=== PATIENT | male | born 1950 | race Caucasian/White ===

== ENCOUNTER 2019-08-13 15:13 | Inpatient (IN) | payer OTHER, MEDICARE ==
[~2019-08-13] VITALS: Ht 172.7 cm; Wt 107.5 kg
--- OUTSIDE RECORDS SUMMARY | 2019-08-13 15:18 | XMS REPORT ---
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 Allergies, Adverse Reactions, Alerts Allergy Name Allergy Type Status Severity Reaction(s) Onset Date Inactive Date Treating Clinician Comments divalproex sodium DA Active SV 2019-04-09 00:00:00 No Known Allergies DA Active U 2019-04-06 00:00:00 divalproex sodium DA Active [place] 2019-04-06 00:00:00 risperidone DA Active SV 2019-04-06 00:00:00 quetiapine DA Active [place] 2019-04-06 00:00:00 risperidone DA Active MO 2019-03-21 00:00:00 divalproex sodium DA Active U 2019-03-21 00:00:00 ketorolac tromethamine DA Active [place] 2019-01-28 00:00:00 quetiapine fumarate DA Active 2019-01-28 00:00:00 Penicillins DA Active [place] 2019-01-28 00:00:00 hydrocodone DA Active [place] 2019-01-28 00:00:00 ketorolac tromethamine DA Active [place] 2016-12-05 00:00:00 quetiapine fumarate DA Active 2016-12-05 00:00:00 Penicillins DA Active [place] 2016-12-05 00:00:00 hydrocodone DA Active [place] 2016-12-05 00:00:00 Medications This patient has no known medications. Encounters Start Date/Time End Date/Time Encounter Type Admission Type Attending [facility] Care Department Encounter ID 2017-11-28 08:00:00 2017-11-28 08:00:00 Outpatient MHSE [id number] Results Test Description Test Time Test Comments Text Results Atomic Results Result Comments SURGICAL SPECIMENS 2019-04-14 13:53:00 RUN DATE: 04/14/19 [facility] *LIVE* PAGE 1 RUN TIME: 1353 Specimen Inquiry RUN USER: INTERFACE PATIENT: KELSEY JENNINGS LOC: [place] U #: [id number] AGE/SX: 69/M ROOM: RE04/10/19[facility] DR: Bill Monroy : 54 BED: DIS: STATUS: [facility] TLOC: SPEC #: [id number] RECD: 04/10/19 STATUS: KIMBER RELillian #: [id number] KEVIN: 04/10/19 [facility] [address]: Bill Monroy MD ENTERED: 04/14/19 SP TYPE: SURG SPEC OTHR DR: August Carpio MD ORDERED: GM LEVEL 4 CODES: [id number] - STOMACH, NOS [id number] - COLON, NOS COPIES TO: August Carpio MD [address] [place] [address] Bill Monroy MD [address] [place] [address] [address] [place], [place] [id number] PROCEDURES: GM LEVEL 4 (Incomplete) TISSUES: 1. STOMACH, NOS - Stomach, antrum, bx. 2. COLON, NOS - Colon, cecum, polyp FINAL DIAGNOSIS Stomach, antrum, bx.: Reactive chemical gastropathy, no Helicobacter organisms identified. Colon, cecum, polyp: Tubular adenoma. GROSS AND MICROSCOPIC GROSS EXAMINATION: Received in formalin labeled antrum biopsy are 2 [place] tissue fragments measuring up to 0.3 cm (A). Received in formalin labeled cecal polyp is one [place] tissue fragment measuring up to 0.3 cm (B). MICROSCOPIC EXAMINATION: The gastric mucosa shows coiled glands with intervening smooth muscle. There is chronic inflammation in the lamina propria. No significant acute inflammation is identified. No Helicobacter pylori organisms are identified with the immunostain, and no intestinal metaplasia is identified with the alcian blue/PAS stain. (When special stains have been reviewed, the appropriate positive/negative CONTINUED ON NEXT PAGE RUN DATE: 04/14/19 [facility] *LIVE* PAGE 2 RUN TIME: 1353 Specimen Inquiry RUN USER: INTERFACE SPEC #: [id number] PATIENT: KELSEY JENNINGS #[id number] (Continued) GROSS AND MICROSCOPIC (Continued) controls have been reviewed and are appropriately positive/negative). Sections of the cecum polyp reveal changes of tubular adenoma. The lesion is composed of elongated glands lined by tall columnar epithelial cells arranged perpendicular to the gland lumens. Mitotic activity is increased. No definite evidence of invasive carcinoma is seen in these slides. POST-OP DIAGNOSIS Colon p olyp, diverticulosis PRE-OP DIAGNOSIS GI bleed, anemia, blood in stool Signed SIGNATURE ON FILE Jasvir Panda Ben FAM 04/14/19 1353 END OF REPORT BASIC METABOLIC PANEL 2019-04-10 10:15:00 SODIUM (test code=NA) 140 mEq/L 134-147 POTASSIUM (test code=K) 4.4 mEq/L 3.4-5.0 CHLORIDE (test code=CL) 104 mEq/L 100-108 CARBON DIOXIDE (test code=CO2) 31 mEq/L 21-33 ANION GAP (test code=GAP) 9 0-20 GLUCOSE (test code=GLU) 90 mg/dL 70-110 BLOOD UREA NITROGEN (test code=BUN) 17 mg/dL 7-18 GLOMERULAR FILTRATION RATE (test code=GFR) 50.5 80-90 Units of measure=ml/min/1.73 m2 CREATININE (test code=CREAT) 1.4 mg/dL 0.6-1.3 CALCIUM (test code=CA) 8.6 mg/dL 8.0-10.5 CBC W/AUTO [id number] 09:23:00* Test Item Value Reference Range Comments WHITE BLOOD CELL (test code=WBC) 8.53 x10 3/uL 4.5-11.0 RED BLOOD CELL (test code=RBC) 2.59 x10 6/uL 4.00-5.60 HEMOGLOBIN (test code=HGB) 8.5 g/dL 12.5-16.9 HEMATOCRIT (test code=HCT) 27.2 % 37.5-50.7 MEAN CELL VOLUME (test code=MCV) 105.0 fL 81.0-99.0 MEAN CELL HGB (test code=MCH) 32.8 pg 27.0-33.0 MEAN CELL HGB CONCETRATION (test code=MCHC) 31.3 g/dL 33.0-37.0 RED CELL DISTRIBUTION WIDTH CV (test code=RDW) 15.9 % 11.5-14.5 RED CELL DISTRIBUTION WIDTH SD (test code=RDW-SD) 60.4 fL 37.0-54.0 PLATELET COUNT (test code=PLT) 172 x10 3/uL 150-400 MEAN PLATELET VOLUME (test code=MPV) 11.3 fL 7.0-9.0 NEUTROPHIL % (test code=NT%) 75.3 % 56.0-77.0 IMMATURE GRANULOCYTE % (test code=IG%) 0.7 % 0.0-2.0 LYMPHOCYTE % (test code=LY%) 15.4 % 14.0-32.0 MONOCYTE % (test code=MO%) 7.3 % 4.8-9.0 EOSINOPHIL % (test code=EO%) 1.1 % 0.3-3.7 BASOPHIL % (test code=BA%) 0.2 % 0.0-2.0 NUCLEATED RBC % (test code=NRBC%) 0.2 % 0-0 NEUTROPHIL # (test code=NT#) 6.43 x10 3/uL 2.0-7.6 IMMATURE GRANULOCYTE # (test code=IG#) 0.06 x10 3/uL 0.00-0.03 LYMPHOCYTE # (test code=LY#) 1.31 x10 3/uL 1.0-3.8 MONOCYTE # (test code=MO#) 0.62 x10 3/uL 0.1-0.8 EOSINOPHIL # (test code=EO#) 0.09 x10 3/uL 0.0-0.2 BASOPHIL # (test code=BA#) 0.02 x10 3/uL 0.0-0.2 NUCLEATED RBC # (test code=NRBC#) 0.02 x10 3/uL 0.0-0.1 MANUAL DIFF REQUIRED (test code=MDIFF) NO BASIC METABOLIC [id number] 08:44:00* Test Item Value Reference Range Comments SODIUM (test code=NA) 141 mEq/L 134-147 POTASSIUM (test code=K) 4.2 mEq/L 3.4-5.0 CHLORIDE (test code=CL) 106 mEq/L 100-108 CARBON DIOXIDE (test code=CO2) 29 mEq/L 21-33 ANION GAP (test code=GAP) 10 0-20 GLUCOSE (test code=GLU) 100 mg/dL 70-110 BLOOD UREA NITROGEN (test code=BUN) 22 mg/dL 7-18 GLOMERULAR FILTRATION RATE (test code=GFR) 60.4 80-90 Units of measure=ml/min/1.73 m2 CREATININE (test code=CREAT) 1.2 mg/dL 0.6-1.3 CALCIUM (test code=CA) 8.2 mg/dL 8.0-10.5 HGB [id number] 16:44:00* Test Item Value Reference Range Comments HEMOGLOBIN (test code=HGB) 8.8 g/dL 12.5-16.9 HEMATOCRIT (test code=HCT) 27.2 % 37.5-50.7 BASIC METABOLIC [id number] 05:42:00* Test Item Value Reference Range Comments SODIUM (test code=NA) 139 mEq/L 134-147 POTASSIUM (test code=K) 4.3 mEq/L 3.4-5.0 CHLORIDE (test code=CL) 108 mEq/L 100-108 CARBON DIOXIDE (test code=CO2) 25 mEq/L 21-33 ANION GAP (test code=GAP) 10 0-20 GLUCOSE (test code=GLU) 71 mg/dL 70-110 BLOOD UREA NITROGEN (test code=BUN) 22 mg/dL 7-18 GLOMERULAR FILTRATION RATE (test code=GFR) 96.4 80-90 Units of measure=ml/min/1.73 m2 CREATININE (test code=CREAT) 0.8 mg/dL 0.6-1.3 CALCIUM (test code=CA) 7.3 mg/dL 8.0-10.5 CBC W/AUTO [id number] 05:07:00* Test Item Value Reference Range Comments WHITE BLOOD CELL (test code=WBC) 6.17 x10 3/uL 4.5-11.0 RED BLOOD CELL (test code=RBC) 2.51 x10 6/uL 4.00-5.60 HEMOGLOBIN (test code=HGB) 8.1 g/dL 12.5-16.9 HEMATOCRIT (test code=HCT) 25.3 % 37.5-50.7 MEAN CELL VOLUME (test code=MCV) 100.8 fL 81.0-99.0 MEAN CELL HGB (test code=MCH) 32.3 pg 27.0-33.0 MEAN CELL HGB CONCETRATION (test code=MCHC) 32.0 g/dL 33.0-37.0 RED CELL DISTRIBUTION WIDTH CV (test code=RDW) 15.4 % 11.5-14.5 RED CELL DISTRIBUTION WIDTH SD (test code=RDW-SD) 57.0 fL 37.0-54.0 PLATELET COUNT (test code=PLT) 136 x10 3/uL 150-400 MEAN PLATELET VOLUME (test code=MPV) 11.3 fL 7.0-9.0 NEUTROPHIL % (test code=NT%) 60.5 % 56.0-77.0 IMMATURE GRANULOCYTE % (test code=IG%) 0.5 % 0.0-2.0 LYMPHOCYTE % (test code=LY%) 29.7 % 14.0-32.0 MONOCYTE % (test code=MO%) 7.1 % 4.8-9.0 EOSINOPHIL % (test code=EO%) 1.9 % 0.3-3.7 BASOPHIL % (test code=BA%) 0.3 % 0.0-2.0 NUCLEATED RBC % (test code=NRBC%) 0.0 % 0-0 NEUTROPHIL # (test code=NT#) 3.73 x10 3/uL 2.0-7.6 IMMATURE GRANULOCYTE # (test code=IG#) 0.03 x10 3/uL 0.00-0.03 LYMPHOCYTE # (test code=LY#) 1.83 x10 3/uL 1.0-3.8 MONOCYTE # (test code=MO#) 0.44 x10 3/uL 0.1-0.8 EOSINOPHIL # (test code=EO#) 0.12 x10 3/uL 0.0-0.2 BASOPHIL # (test code=BA#) 0.02 x10 3/uL 0.0-0.2 NUCLEATED RBC # (test code=NRBC#) 0.00 x10 3/uL 0.0-0.1 MANUAL DIFF REQUIRED (test code=MDIFF) NO PROTHROMBIN [id number] 10:28:00* Test Item Value Reference Range Comments PROTHROMBIN TIME PATIENT (test code=PTP) 11.2 SECONDS 9.3-12.9 INTERNATIONAL NORMAL RATIO (test code=INR) 1.0 0.8-1.2 TARGET INR BY INDICATION Indication INR1. Prophylaxis of venous thrombosis 2.0 - 3.0 (orthopedic surgery), Prophylaxis of venous thrombosis (other than high-risk surgery), Treatment of Deep Vein Thrombosis/Pulmonary Embolism, Prevention of systemic embolism - Tissue heart valves, Acute Myocardial Infarction (to prevent systemic embolism), Valvular heart disease, Atrial Fibrillation, Bileaflet mechanical valve in aortic position.2. Mechanical prosthetic valves (high risk), 2.5 - 3.5 Presence of Lupus Anticoagulant or Antiphospholipid Antibodies, Prevention of systemic embolism - Acute Myocardial Infarction (to prevent recurrent infarct). THROMBOPLASTIN TIME [id number] 10:28:00* Test Item Value Reference Range Comments THROMBOPLASTIN TIME PARTIAL (test code=PTT) 19.7 Seconds 25.0-39.5 Therapeutic Range: 50.4 - 88.3 Seconds Effective 02/24/2019 BASIC METABOLIC [id number] 09:28:00* Test Item Value Reference Range Comments SODIUM (test code=NA) 140 mEq/L 134-147 POTASSIUM (test code=K) 4.1 mEq/L 3.4-5.0 CHLORIDE (test code=CL) 104 mEq/L 100-108 CARBON DIOXIDE (test code=CO2) 30 mEq/L 21-33 ANION GAP (test code=GAP) 10 0-20 GLUCOSE (test code=GLU) 101 mg/dL 70-110 BLOOD UREA NITROGEN (test code=BUN) 34 mg/dL 7-18 GLOMERULAR FILTRATION RATE (test code=GFR) 60.4 80-90 Units of measure=ml/min/1.73 m2 CREATININE (test code=CREAT) 1.2 mg/dL 0.6-1.3 CALCIUM (test code=CA) 8.8 mg/dL 8.0-10.5 HEPATIC FUNCTION [id number] 09:28:00* Test Item Value Reference Range Comments TOTAL PROTEIN (test code=PROT) 6.5 g/dL 6.4-8.2 ALBUMIN (test code=ALB) 2.90 g/dL 3.4-5.0 BILIRUBIN TOTAL (test code=BILT) 0.30 mg/dL 0.0-1.0 BILIRUBIN DIRECT (test code=BILD) < 0.10 MG/DL 0.0-0.30 BILIRUBIN INDIRECT (test code=BILIND) 0.20 MG/DL SGOT/AST (test code=AST) 17 IUnit/L 15-37 SGPT/ALT (test code=ALT) 34 IUnit/L 15-65 ALKALINE PHOSPHATASE TOTAL (test code=ALKP) 52 IUnit/L 20-125 [id number] 09:28:00* Test Item Value Reference Range Comments LIPASE (test code=LIP) 231 IUnit/L 73-393 BASIC METABOLIC [id number] 09:22:00* Test Item Value Reference Range Comments SODIUM (test code=NA) 140 mEq/L 134-147 POTASSIUM (test code=K) 4.1 mEq/L 3.4-5.0 CHLORIDE (test code=CL) 104 mEq/L 100-108 CARBON DIOXIDE (test code=CO2) 30 mEq/L 21-33 ANION GAP (test code=GAP) 10 0-20 GLUCOSE (test code=GLU) 101 mg/dL 70-110 BLOOD UREA NITROGEN (test code=BUN) 34 mg/dL 7-18 GLOMERULAR FILTRATION RATE (test code=GFR) 60.4 80-90 Units of measure=ml/min/1.73 m2 CREATININE (test code=CREAT) 1.2 mg/dL 0.6-1.3 CALCIUM (test code=CA) 8.8 mg/dL 8.0-10.5 HEPATIC FUNCTION [id number] 09:22:00* Test Item Value Reference Range Comments TOTAL PROTEIN (test code=PROT) g/dL 6.4-8.2 ALBUMIN (test code=ALB) 2.90 g/dL 3.4-5.0 BILIRUBIN TOTAL (test code=BILT) mg/dL 0.0-1.0 BILIRUBIN DIRECT (test code=BILD) MG/DL 0.0-0.30 SGOT/AST (test code=AST) 17 IUnit/L 15-37 SGPT/ALT (test code=ALT) 34 IUnit/L 15-65 ALKALINE PHOSPHATASE TOTAL (test code=ALKP) IUnit/L 20-125 [id number] 09:22:00* Test Item Value Reference Range Comments LIPASE (test code=LIP) 231 IUnit/L 73-393 CBC W/O [id number] 09:20:00* Test Item Value Reference Range Comments WHITE BLOOD CELL (test code=WBC) 9.33 x10 3/uL 4.5-11.0 RED BLOOD CELL (test code=RBC) 3.27 x10 6/uL 4.00-5.60 HEMOGLOBIN (test code=HGB) 10.5 g/dL 12.5-16.9 HEMATOCRIT (test code=HCT) 34.0 % 37.5-50.7 MEAN CELL VOLUME (test code=MCV) 104.0 fL 81.0-99.0 MEAN CELL HGB (test code=MCH) 32.1 pg 27.0-33.0 MEAN CELL HGB CONCETRATION (test code=MCHC) 30.9 g/dL 33.0-37.0 RED CELL DISTRIBUTION WIDTH CV (test code=RDW) 15.2 % 11.5-14.5 RED CELL DISTRIBUTION WIDTH SD (test code=RDW-SD) 57.7 fL 37.0-54.0 PLATELET COUNT (test code=PLT) 217 x10 3/uL 150-400 MEAN PLATELET VOLUME (test code=MPV) 11.1 fL 7.0-9.0 ARTERIAL BLOOD [id number] 12:11:00* Test Item Value Reference Range Comments ARTERIAL BLOOD GAS PH (test code=PHA) 7.426 7.35-7.45 ARTERIAL BLOOD GAS PCO2 (test code=PCO2A) 42.2 mmHg 35-45 ARTERIAL BLOOD GAS PO2 (test code=PO2A) 88 mmHg 80-100 BICARBONATE TOTAL HCO3 (test code=HCO3) 27.8 mmol/L 22.0-26.0 BASE EXCESS (test code=TEJAL) 3.0 mmol/L -4-4 ABG O2 SATURATION (test code=SATA) 97 % 90-100 ABG DELIVERY (test code=JOHANNE) Cannula ABG TEMPERATURE (test code=TEMPA) 98.6 F ABG SITE (test code=SITEA) L Rad TCO2 ARTERIAL (test code=TCO2A) 29 VITAMIN B6/[id number] 12:11:00* Test Item Value Reference Range Comments VITAMIN B6/PYRIDOXINE (test code=VITB6) 6.4 ug/L 5.3-46.7 This test was developed and its performance characteristicsdetermined by [employer]. It has not been cleared orapproved by the Food and Drug Administration.Performed At: [address] [id number] Sanjai MD Ph:[phone] BASIC METABOLIC [id number] 07:43:00* Test Item Value Reference Range Comments SODIUM (test code=NA) 137 mEq/L 134-147 POTASSIUM (test code=K) 4.7 mEq/L 3.4-5.0 CHLORIDE (test code=CL) 102 mEq/L 100-108 CARBON DIOXIDE (test code=CO2) 29 mEq/L 21-33 ANION GAP (test code=GAP) 11 0-20 GLUCOSE (test code=GLU) 80 mg/dL 70-110 BLOOD UREA NITROGEN (test code=BUN) 20 mg/dL 7-18 GLOMERULAR FILTRATION RATE (test code=GFR) 66.8 80-90 Units of measure=ml/min/1.73 m2 CREATININE (test code=CREAT) 1.1 mg/dL 0.6-1.3 CALCIUM (test code=CA) 8.9 mg/dL 8.0-10.5 CBC W/AUTO [id number] 07:28:00* Test Item Value Reference Range Comments WHITE BLOOD CELL (test code=WBC) 7.16 x10 3/uL 4.5-11.0 RED BLOOD CELL (test code=RBC) 3.99 x10 6/uL 4.00-5.60 HEMOGLOBIN (test code=HGB) 12.9 g/dL 12.5-16.9 HEMATOCRIT (test code=HCT) 40.9 % 37.5-50.7 MEAN CELL VOLUME (test code=MCV) 102.5 fL 81.0-99.0 MEAN CELL HGB (test code=MCH) 32.3 pg 27.0-33.0 MEAN CELL HGB CONCETRATION (test code=MCHC) 31.5 g/dL 33.0-37.0 RED CELL DISTRIBUTION WIDTH CV (test code=RDW) 15.9 % 11.5-14.5 RED CELL DISTRIBUTION WIDTH SD (test code=RDW-SD) 60.5 fL 37.0-54.0 PLATELET COUNT (test code=PLT) 207 x10 3/uL 150-400 MEAN PLATELET VOLUME (test code=MPV) 12.6 fL 7.0-9.0 NEUTROPHIL % (test code=NT%) 67.4 % 56.0-77.0 IMMATURE GRANULOCYTE % (test code=IG%) 2.1 % 0.0-2.0 LYMPHOCYTE % (test code=LY%) 18.3 % 14.0-32.0 MONOCYTE % (test code=MO%) 7.5 % 4.8-9.0 EOSINOPHIL % (test code=EO%) 4.1 % 0.3-3.7 BASOPHIL % (test code=BA%) 0.6 % 0.0-2.0 NUCLEATED RBC % (test code=NRBC%) 0.0 % 0-0 NEUTROPHIL # (test code=NT#) 4.83 x10 3/uL 2.0-7.6 IMMATURE GRANULOCYTE # (test code=IG#) 0.15 x10 3/uL 0.00-0.03 LYMPHOCYTE # (test code=LY#) 1.31 x10 3/uL 1.0-3.8 MONOCYTE # (test code=MO#) 0.54 x10 3/uL 0.1-0.8 EOSINOPHIL # (test code=EO#) 0.29 x10 3/uL 0.0-0.2 BASOPHIL # (test code=BA#) 0.04 x10 3/uL 0.0-0.2 NUCLEATED RBC # (test code=NRBC#) 0.00 x10 3/uL 0.0-0.1 MANUAL DIFF REQUIRED (test code=MDIFF) NO CBC W/AUTO [id number] 08:53:00* Test Item Value Reference Range Comments WHITE BLOOD CELL (test code=WBC) 7.92 x10 3/uL 4.5-11.0 RED BLOOD CELL (test code=RBC) 4.21 x10 6/uL 4.00-5.60 HEMOGLOBIN (test code=HGB) 13.6 g/dL 12.5-16.9 HEMATOCRIT (test code=HCT) 43.9 % 37.5-50.7 MEAN CELL VOLUME (test code=MCV) 104.3 fL 81.0-99.0 MEAN CELL HGB (test code=MCH) 32.3 pg 27.0-33.0 MEAN CELL HGB CONCETRATION (test code=MCHC) 31.0 g/dL 33.0-37.0 RED CELL DISTRIBUTION WIDTH CV (test code=RDW) 16.5 % 11.5-14.5 RED CELL DISTRIBUTION WIDTH SD (test code=RDW-SD) 64.1 fL 37.0-54.0 PLATELET COUNT (test code=PLT) 156 x10 3/uL 150-400 MEAN PLATELET VOLUME (test code=MPV) 12.9 fL 7.0-9.0 NEUTROPHIL % (test code=NT%) 67.8 % 56.0-77.0 IMMATURE GRANULOCYTE % (test code=IG%) 2.4 % 0.0-2.0 LYMPHOCYTE % (test code=LY%) 16.4 % 14.0-32.0 MONOCYTE % (test code=MO%) 8.7 % 4.8-9.0 EOSINOPHIL % (test code=EO%) 3.9 % 0.3-3.7 BASOPHIL % (test code=BA%) 0.8 % 0.0-2.0 NUCLEATED RBC % (test code=NRBC%) 0.0 % 0-0 NEUTROPHIL # (test code=NT#) 5.37 x10 3/uL 2.0-7.6 IMMATURE GRANULOCYTE # (test code=IG#) 0.19 x10 3/uL 0.00-0.03 LYMPHOCYTE # (test code=LY#) 1.30 x10 3/uL 1.0-3.8 MONOCYTE # (test code=MO#) 0.69 x10 3/uL 0.1-0.8 EOSINOPHIL # (test code=EO#) 0.31 x10 3/uL 0.0-0.2 BASOPHIL # (test code=BA#) 0.06 x10 3/uL 0.0-0.2 NUCLEATED RBC # (test code=NRBC#) 0.00 x10 3/uL 0.0-0.1 MANUAL DIFF REQUIRED (test code=MDIFF) NO BASIC METABOLIC [id number] 08:07:00* Test Item Value Reference Range Comments SODIUM (test code=NA) 138 mEq/L 134-147 POTASSIUM (test code=K) 4.7 mEq/L 3.4-5.0 CHLORIDE (test code=CL) 102 mEq/L 100-108 CARBON DIOXIDE (test code=CO2) 31 mEq/L 21-33 ANION GAP (test code=GAP) 10 0-20 GLUCOSE (test code=GLU) 89 mg/dL 70-110 BLOOD UREA NITROGEN (test code=BUN) 24 mg/dL 7-18 GLOMERULAR FILTRATION RATE (test code=GFR) 60.4 80-90 Units of measure=ml/min/1.73 m2 CREATININE (test code=CREAT) 1.2 mg/dL 0.6-1.3 CALCIUM (test code=CA) 8.9 mg/dL 8.0-10.5 VITAMIN D 1,38-[id number] 14:10:00* Test Item Value Reference Range Comments VITAMIN D 1,25-DIHYDROXY (test aeos=IESN701) 66.6 pg/mL 19.9-79.3 Performed At: [facility] [address] [id number] Sanjai MD Ph:[phone] BASIC METABOLIC [id number] 04:51:00* Test Item Value Reference Range Comments SODIUM (test code=NA) 138 mEq/L 134-147 POTASSIUM (test code=K) 4.7 mEq/L 3.4-5.0 CHLORIDE (test code=CL) 106 mEq/L 100-108 CARBON DIOXIDE (test code=CO2) 28 mEq/L 21-33 ANION GAP (test code=GAP) 9 0-20 GLUCOSE (test code=GLU) 98 mg/dL 70-110 BLOOD UREA NITROGEN (test code=BUN) 32 mg/dL 7-18 GLOMERULAR FILTRATION RATE (test code=GFR) 60.4 80-90 Units of measure=ml/min/1.73 m2 CREATININE (test code=CREAT) 1.2 mg/dL 0.6-1.3 CALCIUM (test code=CA) 8.3 mg/dL 8.0-10.5 CBC W/AUTO [id number] 04:23:00* Test Item Value Reference Range Comments WHITE BLOOD CELL (test code=WBC) 8.41 x10 3/uL 4.5-11.0 RED BLOOD CELL (test code=RBC) 3.68 x10 6/uL 4.00-5.60 HEMOGLOBIN (test code=HGB) 12.1 g/dL 12.5-16.9 HEMATOCRIT (test code=HCT) 38.3 % 37.5-50.7 MEAN CELL VOLUME (test code=MCV) 104.1 fL 81.0-99.0 MEAN CELL HGB (test code=MCH) 32.9 pg 27.0-33.0 MEAN CELL HGB CONCETRATION (test code=MCHC) 31.6 g/dL 33.0-37.0 RED CELL DISTRIBUTION WIDTH CV (test code=RDW) 16.8 % 11.5-14.5 RED CELL DISTRIBUTION WIDTH SD (test code=RDW-SD) 64.6 fL 37.0-54.0 PLATELET COUNT (test code=PLT) 126 x10 3/uL 150-400 MEAN PLATELET VOLUME (test code=MPV) 12.3 fL 7.0-9.0 NEUTROPHIL % (test code=NT%) 67.1 % 56.0-77.0 IMMATURE GRANULOCYTE % (test code=IG%) 2.4 % 0.0-2.0 LYMPHOCYTE % (test code=LY%) 16.6 % 14.0-32.0 MONOCYTE % (test code=MO%) 10.8 % 4.8-9.0 EOSINOPHIL % (test code=EO%) 2.5 % 0.3-3.7 BASOPHIL % (test code=BA%) 0.6 % 0.0-2.0 NUCLEATED RBC % (test code=NRBC%) 0.0 % 0-0 NEUTROPHIL # (test code=NT#) 5.64 x10 3/uL 2.0-7.6 IMMATURE GRANULOCYTE # (test code=IG#) 0.20 x10 3/uL 0.00-0.03 LYMPHOCYTE # (test code=LY#) 1.40 x10 3/uL 1.0-3.8 MONOCYTE # (test code=MO#) 0.91 x10 3/uL 0.1-0.8 EOSINOPHIL # (test code=EO#) 0.21 x10 3/uL 0.0-0.2 BASOPHIL # (test code=BA#) 0.05 x10 3/uL 0.0-0.2 NUCLEATED RBC # (test code=NRBC#) 0.00 x10 3/uL 0.0-0.1 MANUAL DIFF REQUIRED (test code=MDIFF) NO LIPID PROFILE (CORONARY RISK)2019-03-22 14:06:00* Test Item Value Reference Range Comments TRIGLYCERIDES (test code=TRIG) 345 mg/dL 40-150 CHOLESTEROL (test code=CHOL) 196 mg/dL <200 CHOLESTEROL/HDL RATIO (test code=CHOLHDL) 11.53 RATIO 3.43-4.97 RISK ASSOCIATED WITH CHOL/HDL RATIOS: RISK MALE FEMALE1/2 AVERAGE 3.43 3.27AVERAGE 4.97 4.442X AVERAGE 9.55 7.053X AVERAGE 23.39 11.04 NOTE THAT THE REFERENCE VALUE IS RELATEDTO RISK LEVELS RECOMMENDED BY THE NATL.HEART, LUNG, AND BLOOD INST. HDL CHOLESTEROL (test code=HDL) 17.0 mg/dL 32-72 LIPOPROTEIN LDL (test code=LDL) 84 mg/dL 0-100 <100 [id number] NEAR OPTIMAL/ABOVE [id number] HIGH>OU=003 VERY HIGH*Guidelines provided by the National Cholesterol EducationProgram Adult Treatment Panel III URIC [id number] 14:06:00* Test Item Value Reference Range Comments URIC ACID (test code=URIC) 7.7 mg/dL 2.6-7.2 [id number] 14:06:00* Test Item Value Reference Range Comments AMYLASE (test code=EVAN) 12 UNITS/L 25-115 [id number] 14:06:00* Test Item Value Reference Range Comments MAGNESIUM (test code=MAG) 2.60 mg/dL 1.8-2.4 SERUM [id number] 14:06:00* Test Item Value Reference Range Comments SERUM IRON (test code=IRON) 12 mcg/dL 35-150 VITAMIN [id number] 14:06:00* Test Item Value Reference Range Comments VITAMIN B12 (test code=VITB12) 1930 pg/mL 193-986 THYROID STIMULATING [id number] 14:06:00* Test Item Value Reference Range Comments THYROID STIMULATING HORMONE (test code=TSH) 1.01 0.42-5.47 Results in riaz-International Units/mL [id number] 14:06:00* Test Item Value Reference Range Comments TROPONIN-I (test code=TROPI) < 0.015 ng/mL 0.000-0.045 Negative: <=0.045 Positive: >=0.046 Correlation with serial results, other cardiac markers andclinical findings is necessary to determine the clinicalsignificance of this result. Results using different methodologies should not be comparedto one another as quantitative results may vary by method. VITAMIN [id number] 14:06:00* Test Item Value Reference Range Comments VITAMIN A (test code=LIZA) 13.1 ug/dL 22.0-69.5 Reference intervals for vitamin A determined from [facility]. Individuals with vitamin A less than 20ug/dL are considered vitamin A deficient and those withserum concentrations less than 10 ug/dL are consideredseverely deficient.This test was developed and its performance characteristicsdetermined by [facility]. It has not been cleared orapproved by the Food and Drug Administration.Performed At: [address] [id number] Sanjai MD Ph:[phone] [id number] 14:06:00* Test Item Value Reference Range Comments ZINC (test code=ZI) 47 ug/dL 56-134 Detection Limit=5Performed At: [facility] [id number] [place], [place] [id number] Sanjai MD Ph:[phone] PROCALCITONIN (PCT)2019-03-22 09:13:00* Test Item Value Reference Range Comments PROCALCITONIN (PCT) (test code=PROCAL) 2.59 ng/mL 0.00-0.05 PROCALCITONIN (PCT) NORMAL RANGE (ADULT): <0.05 NG/ML. * a concentration <0.5 ng/mL represents a low risk of severe sepsis and/or septic shock.* a concentration >2 ng/mL represents a high risk of severe sepsis and/or septic shock.Nevertheless, concentrations <0.5 ng/mL do not exclude aninfection, on account of localized infections (withoutsystemic signs) which can be associated with such lowconcentrations, or a systemic infection in its initialstages (< 6 hours). Furthermore, increased procalcitonincan occur without infection. PCT concentrations between 0.5and 2.0 ng/mL should be interpreted taking into account thepatient's history. It is recommended to retest PCT within6-24 hours if any concentrations <2 ng/mL are obtained. BASIC METABOLIC [id number] 07:28:00* Test Item Value Reference Range Comments SODIUM (test code=NA) 137 mEq/L 134-147 POTASSIUM (test code=K) 4.5 mEq/L 3.4-5.0 CHLORIDE (test code=CL) 103 mEq/L 100-108 CARBON DIOXIDE (test code=CO2) 28 mEq/L 21-33 ANION GAP (test code=GAP) 11 0-20 GLUCOSE (test code=GLU) 84 mg/dL 70-110 BLOOD UREA NITROGEN (test code=BUN) 36 mg/dL 7-18 GLOMERULAR FILTRATION RATE (test code=GFR) 55.1 80-90 Units of measure=ml/min/1.73 m2 CREATININE (test code=CREAT) 1.3 mg/dL 0.6-1.3 CALCIUM (test code=CA) 8.3 mg/dL 8.0-10.5 CBC W/AUTO [id number] 06:49:00* Test Item Value Reference Range Comments WHITE BLOOD CELL (test code=WBC) 6.80 x10 3/uL 4.5-11.0 RED BLOOD CELL (test code=RBC) 3.63 x10 6/uL 4.00-5.60 HEMOGLOBIN (test code=HGB) 11.8 g/dL 12.5-16.9 HEMATOCRIT (test code=HCT) 36.2 % 37.5-50.7 MEAN CELL VOLUME (test code=MCV) 99.7 fL 81.0-99.0 MEAN CELL HGB (test code=MCH) 32.5 pg 27.0-33.0 MEAN CELL HGB CONCETRATION (test code=MCHC) 32.6 g/dL 33.0-37.0 RED CELL DISTRIBUTION WIDTH CV (test code=RDW) 16.6 % 11.5-14.5 RED CELL DISTRIBUTION WIDTH SD (test code=RDW-SD) 60.9 fL 37.0-54.0 PLATELET COUNT (test code=PLT) 101 x10 3/uL 150-400 MEAN PLATELET VOLUME (test code=MPV) 13.0 fL 7.0-9.0 NEUTROPHIL % (test code=NT%) 67.0 % 56.0-77.0 IMMATURE GRANULOCYTE % (test code=IG%) 1.6 % 0.0-2.0 LYMPHOCYTE % (test code=LY%) 16.5 % 14.0-32.0 MONOCYTE % (test code=MO%) 13.7 % 4.8-9.0 EOSINOPHIL % (test code=EO%) 0.9 % 0.3-3.7 BASOPHIL % (test code=BA%) 0.3 % 0.0-2.0 NUCLEATED RBC % (test code=NRBC%) 0.0 % 0-0 NEUTROPHIL # (test code=NT#) 4.56 x10 3/uL 2.0-7.6 IMMATURE GRANULOCYTE # (test code=IG#) 0.11 x10 3/uL 0.00-0.03 LYMPHOCYTE # (test code=LY#) 1.12 x10 3/uL 1.0-3.8 MONOCYTE # (test code=MO#) 0.93 x10 3/uL 0.1-0.8 EOSINOPHIL # (test code=EO#) 0.06 x10 3/uL 0.0-0.2 BASOPHIL # (test code=BA#) 0.02 x10 3/uL 0.0-0.2 NUCLEATED RBC # (test code=NRBC#) 0.00 x10 3/uL 0.0-0.1 MANUAL DIFF REQUIRED (test code=MDIFF) NO LIPID PROFILE (CORONARY RISK)2019-03-21 14:09:00* Test Item Value Reference Range Comments TRIGLYCERIDES (test code=TRIG) 345 mg/dL 40-150 CHOLESTEROL (test code=CHOL) 196 mg/dL <200 CHOLESTEROL/HDL RATIO (test code=CHOLHDL) 11.53 RATIO 3.43-4.97 RISK ASSOCIATED WITH CHOL/HDL RATIOS: RISK MALE FEMALE1/2 AVERAGE 3.43 3.27AVERAGE 4.97 4.442X AVERAGE 9.55 7.053X AVERAGE 23.39 11.04 NOTE THAT THE REFERENCE VALUE IS RELATEDTO RISK LEVELS RECOMMENDED BY THE NATL.HEART, LUNG, AND BLOOD INST. HDL CHOLESTEROL (test code=HDL) 17.0 mg/dL 32-72 LIPOPROTEIN LDL (test code=LDL) 84 mg/dL 0-100 <100 [id number] NEAR OPTIMAL/ABOVE [id number] HIGH>UD=888 VERY HIGH*Guidelines provided by the National Cholesterol EducationProgram Adult Treatment Panel III URIC [id number] 14:09:00* Test Item Value Reference Range Comments URIC ACID (test code=URIC) 7.7 mg/dL 2.6-7.2 [id number] 14:09:00* Test Item Value Reference Range Comments AMYLASE (test code=EVAN) 12 UNITS/L 25-115 [id number] 14:09:00* Test Item Value Reference Range Comments MAGNESIUM (test code=MAG) 2.60 mg/dL 1.8-2.4 SERUM [id number] 14:09:00* Test Item Value Reference Range Comments SERUM IRON (test code=IRON) 12 mcg/dL 35-150 VITAMIN [id number] 14:09:00* Test Item Value Reference Range Comments VITAMIN B12 (test code=VITB12) 1930 pg/mL 193-986 THYROID STIMULATING [id number] 14:09:00* Test Item Value Reference Range Comments THYROID STIMULATING HORMONE (test code=TSH) 1.01 0.42-5.47 Results in riaz-International Units/mL [id number] 14:09:00* Test Item Value Reference Range Comments TROPONIN-I (test code=TROPI) < 0.015 ng/mL 0.000-0.045 Negative: <=0.045 Positive: >=0.046 Correlation with serial results, other cardiac markers andclinical findings is necessary to determine the clinicalsignificance of this result. Results using different methodologies should not be comparedto one another as quantitative results may vary by method. VITAMIN [id number] 14:09:00* Test Item Value Reference Range Comments VITAMIN A (test code=LIZA) [id number] 14:09:00* Test Item Value Reference Range Comments ZINC (test code=ZI) 47 ug/dL 56-134 Detection Limit=5Performed At: [address] [id number] Sanjai MD Ph:[phone] PROCALCITONIN (PCT)2019-03-21 09:45:00* Test Item Value Reference Range Comments PROCALCITONIN (PCT) (test code=PROCAL) 4.35 ng/mL 0.00-0.05 PROCALCITONIN (PCT) NORMAL RANGE (ADULT): <0.05 NG/ML. * a concentration <0.5 ng/mL represents a low risk of severe sepsis and/or septic shock.* a concentration >2 ng/mL represents a high risk of severe sepsis and/or septic shock.Nevertheless, concentrations <0.5 ng/mL do not exclude aninfection, on account of localized infections (withoutsystemic signs) which can be associated with such lowconcentrations, or a systemic infection in its initialstages (< 6 hours). Furthermore, increased procalcitonincan occur without infection. PCT concentrations between 0.5and 2.0 ng/mL should be interpreted taking into account thepatient's history. It is recommended to retest PCT within6-24 hours if any concentrations <2 ng/mL are obtained. BASIC METABOLIC [id number] 07:11:00* Test Item Value Reference Range Comments SODIUM (test code=NA) 135 mEq/L 134-147 POTASSIUM (test code=K) 5.0 mEq/L 3.4-5.0 CHLORIDE (test code=CL) 103 mEq/L 100-108 CARBON DIOXIDE (test code=CO2) 28 mEq/L 21-33 ANION GAP (test code=GAP) 9 0-20 GLUCOSE (test code=GLU) 75 mg/dL 70-110 BLOOD UREA NITROGEN (test code=BUN) 28 mg/dL 7-18 GLOMERULAR FILTRATION RATE (test code=GFR) 60.4 80-90 Units of measure=ml/min/1.73 m2 CREATININE (test code=CREAT) 1.2 mg/dL 0.6-1.3 CALCIUM (test code=CA) 8.1 mg/dL 8.0-10.5 CBC W/AUTO [id number] 07:04:00* Test Item Value Reference Range Comments WHITE BLOOD CELL (test code=WBC) 7.83 x10 3/uL 4.5-11.0 RED BLOOD CELL (test code=RBC) 3.79 x10 6/uL 4.00-5.60 HEMOGLOBIN (test code=HGB) 12.3 g/dL 12.5-16.9 HEMATOCRIT (test code=HCT) 38.1 % 37.5-50.7 MEAN CELL VOLUME (test code=MCV) 100.5 fL 81.0-99.0 MEAN CELL HGB (test code=MCH) 32.5 pg 27.0-33.0 MEAN CELL HGB CONCETRATION (test code=MCHC) 32.3 g/dL 33.0-37.0 RED CELL DISTRIBUTION WIDTH CV (test code=RDW) 17.0 % 11.5-14.5 RED CELL DISTRIBUTION WIDTH SD (test code=RDW-SD) 63.2 fL 37.0-54.0 PLATELET COUNT (test code=PLT) 98 x10 3/uL 150-400 MEAN PLATELET VOLUME (test code=MPV) 12.5 fL 7.0-9.0 NEUTROPHIL % (test code=NT%) 75.4 % 56.0-77.0 IMMATURE GRANULOCYTE % (test code=IG%) 0.5 % 0.0-2.0 LYMPHOCYTE % (test code=LY%) 12.3 % 14.0-32.0 MONOCYTE % (test code=MO%) 11.4 % 4.8-9.0 EOSINOPHIL % (test code=EO%) 0.3 % 0.3-3.7 BASOPHIL % (test code=BA%) 0.1 % 0.0-2.0 NUCLEATED RBC % (test code=NRBC%) 0.3 % 0-0 NEUTROPHIL # (test code=NT#) 5.91 x10 3/uL 2.0-7.6 IMMATURE GRANULOCYTE # (test code=IG#) 0.04 x10 3/uL 0.00-0.03 LYMPHOCYTE # (test code=LY#) 0.96 x10 3/uL 1.0-3.8 MONOCYTE # (test code=MO#) 0.89 x10 3/uL 0.1-0.8 EOSINOPHIL # (test code=EO#) 0.02 x10 3/uL 0.0-0.2 BASOPHIL # (test code=BA#) 0.01 x10 3/uL 0.0-0.2 NUCLEATED RBC # (test code=NRBC#) 0.02 x10 3/uL 0.0-0.1 MANUAL DIFF REQUIRED (test code=MDIFF) NO [id number] 16:25:00* Test Item Value Reference Range Comments GLUBED (test code=GLUBED) 92 MG/DL 70-110 Performed by certified control panel operator at [facility] PROCALCITONIN (PCT)2019-03-20 14:02:00* Test Item Value Reference Range Comments PROCALCITONIN (PCT) (test code=PROCAL) 7.88 ng/mL 0.00-0.05 PROCALCITONIN (PCT) NORMAL RANGE (ADULT): <0.05 NG/ML. * a concentration <0.5 ng/mL represents a low risk of severe sepsis and/or septic shock.* a concentration >2 ng/mL represents a high risk of severe sepsis and/or septic shock.Nevertheless, concentrations <0.5 ng/mL do not exclude aninfection, on account of localized infections (withoutsystemic signs) which can be associated with such lowconcentrations, or a systemic infection in its initialstages (< 6 hours). Furthermore, increased procalcitonincan occur without infection. PCT concentrations between 0.5and 2.0 ng/mL should be interpreted taking into account thepatient's history. It is recommended to retest PCT within6-24 hours if any concentrations <2 ng/mL are obtained. BASIC METABOLIC [id number] 11:59:00* Test Item Value Reference Range Comments SODIUM (test code=NA) 141 mEq/L 134-147 POTASSIUM (test code=K) 4.6 mEq/L 3.4-5.0 CHLORIDE (test code=CL) 106 mEq/L 100-108 CARBON DIOXIDE (test code=CO2) 32 mEq/L 21-33 ANION GAP (test code=GAP) 8 0-20 GLUCOSE (test code=GLU) 99 mg/dL 70-110 BLOOD UREA NITROGEN (test code=BUN) 34 mg/dL 7-18 GLOMERULAR FILTRATION RATE (test code=GFR) 43.3 80-90 Units of measure=ml/min/1.73 m2 CREATININE (test code=CREAT) 1.6 mg/dL 0.6-1.3 CALCIUM (test code=CA) 8.8 mg/dL 8.0-10.5 CBC W/AUTO [id number] 09:50:00* Test Item Value Reference Range Comments WHITE BLOOD CELL (test code=WBC) 11.18 x10 3/uL 4.5-11.0 RED BLOOD CELL (test code=RBC) 3.76 x10 6/uL 4.00-5.60 HEMOGLOBIN (test code=HGB) 12.4 g/dL 12.5-16.9 HEMATOCRIT (test code=HCT) 39.0 % 37.5-50.7 MEAN CELL VOLUME (test code=MCV) 103.7 fL 81.0-99.0 MEAN CELL HGB (test code=MCH) 33.0 pg 27.0-33.0 MEAN CELL HGB CONCETRATION (test code=MCHC) 31.8 g/dL 33.0-37.0 RED CELL DISTRIBUTION WIDTH CV (test code=RDW) 17.2 % 11.5-14.5 RED CELL DISTRIBUTION WIDTH SD (test code=RDW-SD) 66.0 fL 37.0-54.0 PLATELET COUNT (test code=PLT) 101 x10 3/uL 150-400 MEAN PLATELET VOLUME (test code=MPV) 13.0 fL 7.0-9.0 NEUTROPHIL % (test code=NT%) 88.3 % 56.0-77.0 IMMATURE GRANULOCYTE % (test code=IG%) 0.4 % 0.0-2.0 LYMPHOCYTE % (test code=LY%) 4.3 % 14.0-32.0 MONOCYTE % (test code=MO%) 6.9 % 4.8-9.0 EOSINOPHIL % (test code=EO%) 0.0 % 0.3-3.7 BASOPHIL % (test code=BA%) 0.1 % 0.0-2.0 NUCLEATED RBC % (test code=NRBC%) 0.2 % 0-0 NEUTROPHIL # (test code=NT#) 9.87 x10 3/uL 2.0-7.6 IMMATURE GRANULOCYTE # (test code=IG#) 0.05 x10 3/uL 0.00-0.03 LYMPHOCYTE # (test code=LY#) 0.48 x10 3/uL 1.0-3.8 MONOCYTE # (test code=MO#) 0.77 x10 3/uL 0.1-0.8 EOSINOPHIL # (test code=EO#) 0.00 x10 3/uL 0.0-0.2 BASOPHIL # (test code=BA#) 0.01 x10 3/uL 0.0-0.2 NUCLEATED RBC # (test code=NRBC#) 0.02 x10 3/uL 0.0-0.1 MANUAL DIFF REQUIRED (test code=MDIFF) NO SLIDE REVIEWED, CONSISTENT WITH AUTO DIFF. PLT [id number] 09:50:00* Test Item Value Reference Range Comments PLATELET ESTIMATE (test code=PLTEST) 108-135 THOUSAND ADEQUATE PLATELET MORPHOLOGY (test code=PLTMORPH) LARGE PLATELETS SOME LARGE PLTS SEEN CBC W/AUTO [id number] 09:49:00* Test Item Value Reference Range Comments WHITE BLOOD CELL (test code=WBC) 11.18 x10 3/uL 4.5-11.0 RED BLOOD CELL (test code=RBC) 3.76 x10 6/uL 4.00-5.60 HEMOGLOBIN (test code=HGB) 12.4 g/dL 12.5-16.9 HEMATOCRIT (test code=HCT) 39.0 % 37.5-50.7 MEAN CELL VOLUME (test code=MCV) 103.7 fL 81.0-99.0 MEAN CELL HGB (test code=MCH) 33.0 pg 27.0-33.0 MEAN CELL HGB CONCETRATION (test code=MCHC) 31.8 g/dL 33.0-37.0 RED CELL DISTRIBUTION WIDTH CV (test code=RDW) 17.2 % 11.5-14.5 RED CELL DISTRIBUTION WIDTH SD (test code=RDW-SD) 66.0 fL 37.0-54.0 PLATELET COUNT (test code=PLT) 101 x10 3/uL 150-400 MEAN PLATELET VOLUME (test code=MPV) 13.0 fL 7.0-9.0 NEUTROPHIL % (test code=NT%) 88.3 % 56.0-77.0 IMMATURE GRANULOCYTE % (test code=IG%) 0.4 % 0.0-2.0 LYMPHOCYTE % (test code=LY%) 4.3 % 14.0-32.0 MONOCYTE % (test code=MO%) 6.9 % 4.8-9.0 EOSINOPHIL % (test code=EO%) 0.0 % 0.3-3.7 BASOPHIL % (test code=BA%) 0.1 % 0.0-2.0 NUCLEATED RBC % (test code=NRBC%) 0.2 % 0-0 NEUTROPHIL # (test code=NT#) 9.87 x10 3/uL 2.0-7.6 IMMATURE GRANULOCYTE # (test code=IG#) 0.05 x10 3/uL 0.00-0.03 LYMPHOCYTE # (test code=LY#) 0.48 x10 3/uL 1.0-3.8 MONOCYTE # (test code=MO#) 0.77 x10 3/uL 0.1-0.8 EOSINOPHIL # (test code=EO#) 0.00 x10 3/uL 0.0-0.2 BASOPHIL # (test code=BA#) 0.01 x10 3/uL 0.0-0.2 NUCLEATED RBC # (test code=NRBC#) 0.02 x10 3/uL 0.0-0.1 MANUAL DIFF REQUIRED (test code=MDIFF) NO SLIDE REVIEWED, CONSISTENT WITH AUTO DIFF. PLT [id number] 09:49:00* Test Item Value Reference Range Comments PLATELET ESTIMATE (test code=PLTEST) THOUSAND ADEQUATE CBC W/AUTO [id number] 09:49:00* Test Item Value Reference Range Comments WHITE BLOOD CELL (test code=WBC) 11.18 x10 3/uL 4.5-11.0 RED BLOOD CELL (test code=RBC) 3.76 x10 6/uL 4.00-5.60 HEMOGLOBIN (test code=HGB) 12.4 g/dL 12.5-16.9 HEMATOCRIT (test code=HCT) 39.0 % 37.5-50.7 MEAN CELL VOLUME (test code=MCV) 103.7 fL 81.0-99.0 MEAN CELL HGB (test code=MCH) 33.0 pg 27.0-33.0 MEAN CELL HGB CONCETRATION (test code=MCHC) 31.8 g/dL 33.0-37.0 RED CELL DISTRIBUTION WIDTH CV (test code=RDW) 17.2 % 11.5-14.5 RED CELL DISTRIBUTION WIDTH SD (test code=RDW-SD) 66.0 fL 37.0-54.0 PLATELET COUNT (test code=PLT) 101 x10 3/uL 150-400 MEAN PLATELET VOLUME (test code=MPV) 13.0 fL 7.0-9.0 NEUTROPHIL % (test code=NT%) 88.3 % 56.0-77.0 IMMATURE GRANULOCYTE % (test code=IG%) 0.4 % 0.0-2.0 LYMPHOCYTE % (test code=LY%) 4.3 % 14.0-32.0 MONOCYTE % (test code=MO%) 6.9 % 4.8-9.0 EOSINOPHIL % (test code=EO%) 0.0 % 0.3-3.7 BASOPHIL % (test code=BA%) 0.1 % 0.0-2.0 NUCLEATED RBC % (test code=NRBC%) 0.2 % 0-0 NEUTROPHIL # (test code=NT#) 9.87 x10 3/uL 2.0-7.6 IMMATURE GRANULOCYTE # (test code=IG#) 0.05 x10 3/uL 0.00-0.03 LYMPHOCYTE # (test code=LY#) 0.48 x10 3/uL 1.0-3.8 MONOCYTE # (test code=MO#) 0.77 x10 3/uL 0.1-0.8 EOSINOPHIL # (test code=EO#) 0.00 x10 3/uL 0.0-0.2 BASOPHIL # (test code=BA#) 0.01 x10 3/uL 0.0-0.2 NUCLEATED RBC # (test code=NRBC#) 0.02 x10 3/uL 0.0-0.1 MANUAL DIFF REQUIRED (test code=MDIFF) NO SLIDE REVIEWED, CONSISTENT WITH AUTO DIFF. PLT [id number] 09:49:00* Test Item Value Reference Range Comments PLATELET ESTIMATE (test code=PLTEST) THOUSAND ADEQUATE - XR CHEST 1 [id number] 07:17:00 FAX: Desmond Sanchez MD [phone] [place]: St: ADM FAX: August Clifford MD [phone] Name: KELSEY JENNINGS [facility] : 1950 Age/S: 69/M [address] [place] [address] Unit #: [id number] Loc: G.M321 [place] [address] Phys: Desmond Fofana MD Acct: [id number] Dis Date: Status: ADM IN PHONE #: [phone] Exam Date: 03/20/2019 0549 FAX #: [phone] Reason: sob EXAMS: CPT CODE: [id number] XR CHEST 1 V 11301 CLINICAL HISTORY: Shortness of breath. COMPARISON: March 18, 2019 at 1944. Portable film of the chest performed at 0526 on March 20, 2019 demonstrates pacemaker and monitor leads in place. Cardiac silhouette is mildly enlarged. Poor inspiration is seen compared to previous examination with minor hypoventilatory changes at the right lung base. No other significant interval change is noted. IMPRESSION: Mild enlargement of cardiac silhouette with hypoventilatory changes at the right lung base. Decreased lung volume is seen compared to previous study. Electronically Signed by Dafne Rogers on 08/2019 at 0717 Reported and signed by: Renuka Raza CC: Desmond Fofana MD; August Carpio MD Technologist: Chiki Ram RT(R) Trnmtrd Date/Time/By: 03/20/2019 (0717) : By: LucianoYOS Orig Print D/T: S: 03/20/2019 (0734) PAGE 1 Signed R eport BASIC METABOLIC [id number] 06:45:00* Test Item Value Reference Range Comments SODIUM (test code=NA) 140 mEq/L 134-147 POTASSIUM (test code=K) 5.7 mEq/L 3.4-5.0 CHLORIDE (test code=CL) 108 mEq/L 100-108 CARBON DIOXIDE (test code=CO2) 28 mEq/L 21-33 ANION GAP (test code=GAP) 10 0-20 GLUCOSE (test code=GLU) 104 mg/dL 70-110 BLOOD UREA NITROGEN (test code=BUN) 34 mg/dL 7-18 GLOMERULAR FILTRATION RATE (test code=GFR) 50.5 80-90 Units of measure=ml/min/1.73 m2 CREATININE (test code=CREAT) 1.4 mg/dL 0.6-1.3 CALCIUM (test code=CA) 8.5 mg/dL 8.0-10.5 [id number] 06:45:00* Test Item Value Reference Range Comments MAGNESIUM (test code=MAG) 2.40 mg/dL 1.8-2.4 CBC W/AUTO [id number] 06:10:00* Test Item Value Reference Range Comments WHITE BLOOD CELL (test code=WBC) 11.18 x10 3/uL 4.5-11.0 RED BLOOD CELL (test code=RBC) 3.76 x10 6/uL 4.00-5.60 HEMOGLOBIN (test code=HGB) 12.4 g/dL 12.5-16.9 HEMATOCRIT (test code=HCT) 39.0 % 37.5-50.7 MEAN CELL VOLUME (test code=MCV) 103.7 fL 81.0-99.0 MEAN CELL HGB (test code=MCH) 33.0 pg 27.0-33.0 MEAN CELL HGB CONCETRATION (test code=MCHC) 31.8 g/dL 33.0-37.0 RED CELL DISTRIBUTION WIDTH CV (test code=RDW) 17.2 % 11.5-14.5 RED CELL DISTRIBUTION WIDTH SD (test code=RDW-SD) 66.0 fL 37.0-54.0 PLATELET COUNT (test code=PLT) 101 x10 3/uL 150-400 MEAN PLATELET VOLUME (test code=MPV) 13.0 fL 7.0-9.0 LYMPHOCYTE % (test code=LY%) % 14.0-32.0 MANUAL DIFF REQUIRED (test code=MDIFF) AG PROSTATE [id number] 14:38:00* Test Item Value Reference Range Comments AG PROSTATE SPECIFIC (test code=PSA) < 0.1 ng/mL 0.05-4.0 AG PROSTATE [id number] 14:37:00* Test Item Value Reference Range Comments AG PROSTATE SPECIFIC (test code=PSA) <0.1 ng/mL 0.05-4.0 B-TYPE NATRIURETIC [id number] 10:48:00* Test Item Value Reference Range Comments B-TYPE NATRIURETIC PEPTIDE (test code=BNP) 294.3 PG/ML 0-100 SED RATE [id number] 10:40:00* Test Item Value Reference Range Comments SED RATE WESTERGREN (test code=SEDW) 87 mm/hr 0-15 [id number] 10:38:00* Test Item Value Reference Range Comments AMMONIA (test code=AMM) < 10 umol/L 0-35 LIPID PROFILE (CORONARY RISK)2019-03-19 10:37:00* Test Item Value Reference Range Comments TRIGLYCERIDES (test code=TRIG) 345 mg/dL 40-150 CHOLESTEROL (test code=CHOL) 196 mg/dL <200 CHOLESTEROL/HDL RATIO (test code=CHOLHDL) 11.53 RATIO 3.43-4.97 RISK ASSOCIATED WITH CHOL/HDL RATIOS: RISK MALE FEMALE1/2 AVERAGE 3.43 3.27AVERAGE 4.97 4.442X AVERAGE 9.55 7.053X AVERAGE 23.39 11.04 NOTE THAT THE REFERENCE VALUE IS RELATEDTO RISK LEVELS RECOMMENDED BY THE NATL.HEART, LUNG, AND BLOOD INST. HDL CHOLESTEROL (test code=HDL) 17.0 mg/dL 32-72 LIPOPROTEIN LDL (test code=LDL) 84 mg/dL 0-100 <100 [id number] NEAR OPTIMAL/ABOVE [id number] HIGH>JC=468 VERY HIGH*Guidelines provided by the National Cholesterol EducationProgram Adult Treatment Panel III URIC [id number] 10:37:00* Test Item Value Reference Range Comments URIC ACID (test code=URIC) 7.7 mg/dL 2.6-7.2 [id number] 10:37:00* Test Item Value Reference Range Comments AMYLASE (test code=EVAN) 12 UNITS/L 25-115 [id number] 10:37:00* Test Item Value Reference Range Comments MAGNESIUM (test code=MAG) 2.60 mg/dL 1.8-2.4 SERUM [id number] 10:37:00* Test Item Value Reference Range Comments SERUM IRON (test code=IRON) 12 mcg/dL 35-150 VITAMIN [id number] 10:37:00* Test Item Value Reference Range Comments VITAMIN B12 (test code=VITB12) 1930 pg/mL 193-986 THYROID STIMULATING [id number] 10:37:00* Test Item Value Reference Range Comments THYROID STIMULATING HORMONE (test code=TSH) 1.01 0.42-5.47 Results in riaz-International Units/mL [id number] 10:37:00* Test Item Value Reference Range Comments TROPONIN-I (test code=TROPI) < 0.015 ng/mL 0.000-0.045 Negative: <=0.045 Positive: >=0.046 Correlation with serial results, other cardiac markers andclinical findings is necessary to determine the clinicalsignificance of this result. Results using different methodologies should not be comparedto one another as quantitative results may vary by method. VITAMIN [id number] 10:37:00* Test Item Value Reference Range Comments VITAMIN A (test code=LIZA) [id number] 10:37:00* Test Item Value Reference Range Comments ZINC (test code=ZI) [id number] 09:59:00* Test Item Value Reference Range Comments GLUBED (test code=GLUBED) 148 MG/DL 70-110 Performed by certified control panel operator at [facility] HGBA1C%2019-03-19 09:58:00* Test Item Value Reference Range Comments HGBA1C% (test code=HGBA1C%) 6.1 %A1C 4.8-6.0 ARTERIAL BLOOD [id number] 09:07:00* Test Item Value Reference Range Comments ARTERIAL BLOOD GAS PH (test code=PHA) 7.330 7.35-7.45 ARTERIAL BLOOD GAS PCO2 (test code=PCO2A) 52.4 mmHg 35-45 ARTERIAL BLOOD GAS PO2 (test code=PO2A) 149 mmHg 80-100 BICARBONATE TOTAL HCO3 (test code=HCO3) 27.6 mmol/L 22.0-26.0 BASE EXCESS (test code=TEJAL) 2.0 mmol/L -4-4 ABG O2 SATURATION (test code=SATA) 99 % 90-100 FIO2 (test code=FIO2A) 50 % ABG DELIVERY (test code=JOHANNE) Bipap ABG VENT RESP RATE (test code=RRA) 20 /MIN Performed by certified control panel operator at [facility] ABG TEMPERATURE (test code=TEMPA) 98.6 F ABG SITE (test code=SITEA) R Rad PREDICTED AA GRADIENT (test code=AP) 76 PREDICTED PO2 (test code=OP) 217 a/A RATIO (test code=RATIO) 0.51 TCO2 ARTERIAL (test code=TCO2A) 29 A-A GRADIENT (test code=AAGRADE) 145 [id number] 05:17:00* Test Item Value Reference Range Comments GLUBED (test code=GLUBED) 164 MG/DL 70-110 Performed by certified control panel operator at [facility] [id number] 01:17:00* Test Item Value Reference Range Comments AMMONIA (test code=AMM) < 10 umol/L 0-35 [id number] 01:17:00* Test Item Value Reference Range Comments TROPONIN-I (test code=TROPI) 0.043 ng/mL 0.000-0.045 Negative: <=0.045 Positive: >=0.046 Correlation with serial results, other cardiac markers andclinical findings is necessary to determine the clinicalsignificance of this result. Results using different methodologies should not be comparedto one another as quantitative results may vary by method. COMMENTS: 3 troponins total (including troponin done in ED)[id number] 01:03:00* Test Item Value Reference Range Comments GLUBED (test code=GLUBED) 148 MG/DL 70-110 Performed by certified control panel operator at [facility] [id number] 00:41:00* Test Item Value Reference Range Comments TROPONIN-I (test code=TROPI) 0.049 ng/mL 0.000-0.045 Negative: <=0.045 Positive: >=0.046 Correlation with serial results, other cardiac markers andclinical findings is necessary to determine the clinicalsignificance of this result. Results using different methodologies should not be comparedto one another as quantitative results may vary by method. COMMENTS: 3 troponins total (including troponin done in ED)LACTIC ACID REPEAT 2019-03-19 00:35:00* Test Item Value Reference Range Comments LACTIC ACID REPEAT (test code=LACTR) 1.1 mmol/l 0.4-1.9 DRUGS OF ABUSE SCREEN [id number] 23:04:00* Test Item Value Reference Range Comments URN COCAINE (test code=COCAURN) NEGATIVE NEGATIVE URN CANNABINOIDS (test code=CANNABURN) NEGATIVE NEGATIVE URN AMPHETAMINE (test code=AMPHETURN) NEGATIVE NEGATIVE URN BARBITURATE (test code=BARBITURN) NEGATIVE NEGATIVE URN BENZODIAZEPINE (test code=BENZOURN) POSITIVE NEGATIVE Cut-off value:200 ng/mL URN OPIATES (test code=OPIATURN) POSITIVE NEGATIVE Cut-off value:2000 ng/mL URN PHENCYCLIDINE (PCP) (test code=PHENCURN) NEGATIVE NEGATIVE Cutoffs:Barbiturates 200 ng/mLBenzodiazepines 200 ng/mLTHC Cannabinoids 50 ng/mLOpiates(Morphine) 2000 ng/mLAmphetamine 1000 ng/mLCocaine 300 ng/mLPCP phencyclidine 25 ng/mL Unconfirmed screening results shouldnot be used for non-medical purposes. DRUGS OF ABUSE SCREEN [id number] 22:49:00* Test Item Value Reference Range Comments URN COCAINE (test code=COCAURN) NEGATIVE NEGATIVE URN CANNABINOIDS (test code=CANNABURN) NEGATIVE NEGATIVE URN AMPHETAMINE (test code=AMPHETURN) NEGATIVE NEGATIVE URN BARBITURATE (test code=BARBITURN) NEGATIVE NEGATIVE URN BENZODIAZEPINE (test code=BENZOURN) NEGATIVE URN OPIATES (test code=OPIATURN) NEGATIVE URN PHENCYCLIDINE (PCP) (test code=PHENCURN) NEGATIVE NEGATIVE Cutoffs:Barbiturates 200 ng/mLBenzodiazepines 200 ng/mLTHC Cannabinoids 50 ng/mLOpiates(Morphine) 2000 ng/mLAmphetamine 1000 ng/mLCocaine 300 ng/mLPCP phencyclidine 25 ng/mL Unconfirmed screening results shouldnot be used for non-medical purposes. [id number] 22:40:00* Test Item Value Reference Range Comments ALCOHOL (test code=ALC) < 0.003 G/dL <0.003 Ethyl Alcohol Interpretation: 0.100 gm/dL - Legally Intoxicated 0.300-0.400 gm/dL - Severely Intoxicated >0.400 gm/dL - Potentially LethalResults are for Medical purposes only, and not for Legal orEmployment evaluation purposes. PROCALCITONIN (PCT)2019-03-18 22:32:00* Test Item Value Reference Range Comments PROCALCITONIN (PCT) (test code=PROCAL) 16.54 ng/mL 0.00-0.05 PROCALCITONIN (PCT) NORMAL RANGE (ADULT): <0.05 NG/ML. * a concentration <0.5 ng/mL represents a low risk of severe sepsis and/or septic shock.* a concentration >2 ng/mL represents a high risk of severe sepsis and/or septic shock.Nevertheless, concentrations <0.5 ng/mL do not exclude aninfection, on account of localized infections (withoutsystemic signs) which can be associated with such lowconcentrations, or a systemic infection in its initialstages (< 6 hours). Furthermore, increased procalcitonincan occur without infection. PCT concentrations between 0.5and 2.0 ng/mL should be interpreted taking into account thepatient's history. It is recommended to retest PCT within6-24 hours if any concentrations <2 ng/mL are obtained. CBC W/AUTO [id number] 21:32:00* Test Item Value Reference Range Comments WHITE BLOOD CELL (test code=WBC) 11.32 x10 3/uL 4.5-11.0 RED BLOOD CELL (test code=RBC) 4.38 x10 6/uL 4.00-5.60 HEMOGLOBIN (test code=HGB) 14.3 g/dL 12.5-16.9 HEMATOCRIT (test code=HCT) 45.5 % 37.5-50.7 MEAN CELL VOLUME (test code=MCV) 103.9 fL 81.0-99.0 MEAN CELL HGB (test code=MCH) 32.6 pg 27.0-33.0 MEAN CELL HGB CONCETRATION (test code=MCHC) 31.4 g/dL 33.0-37.0 RED CELL DISTRIBUTION WIDTH CV (test code=RDW) 17.0 % 11.5-14.5 RED CELL DISTRIBUTION WIDTH SD (test code=RDW-SD) 66.3 fL 37.0-54.0 PLATELET COUNT (test code=PLT) 113 x10 3/uL 150-400 MEAN PLATELET VOLUME (test code=MPV) 11.7 fL 7.0-9.0 NEUTROPHIL % (test code=NT%) 87.8 % 56.0-77.0 IMMATURE GRANULOCYTE % (test code=IG%) 3.4 % 0.0-2.0 LYMPHOCYTE % (test code=LY%) 3.2 % 14.0-32.0 MONOCYTE % (test code=MO%) 5.1 % 4.8-9.0 EOSINOPHIL % (test code=EO%) 0.2 % 0.3-3.7 BASOPHIL % (test code=BA%) 0.3 % 0.0-2.0 NUCLEATED RBC % (test code=NRBC%) 0.0 % 0-0 NEUTROPHIL # (test code=NT#) 9.95 x10 3/uL 2.0-7.6 IMMATURE GRANULOCYTE # (test code=IG#) 0.38 x10 3/uL 0.00-0.03 LYMPHOCYTE # (test code=LY#) 0.36 x10 3/uL 1.0-3.8 MONOCYTE # (test code=MO#) 0.58 x10 3/uL 0.1-0.8 EOSINOPHIL # (test code=EO#) 0.02 x10 3/uL 0.0-0.2 BASOPHIL # (test code=BA#) 0.03 x10 3/uL 0.0-0.2 NUCLEATED RBC # (test code=NRBC#) 0.00 x10 3/uL 0.0-0.1 MANUAL DIFF REQUIRED (test code=MDIFF) NO SLIDE REVIEWED, CONSISTENT WITH AUTO DIFF. LIPOPROTEIN [id number] 21:26:00* Test Item Value Reference Range Comments LIPOPROTEIN LDL (test code=LDL) 101 mg/dL 0-100 <100 [id number] NEAR OPTIMAL/ABOVE [id number] HIGH>ZG=719 VERY HIGH*Guidelines provided by the National Cholesterol EducationProgram Adult Treatment Panel III B-TYPE NATRIURETIC [id number] 21:26:00* Test Item Value Reference Range Comments B-TYPE NATRIURETIC PEPTIDE (test code=BNP) 550.1 PG/ML 0-100 ARTERIAL BLOOD [id number] 21:25:00* Test Item Value Reference Range Comments ARTERIAL BLOOD GAS PH (test code=PHA) 7.259 7.35-7.45 ARTERIAL BLOOD GAS PCO2 (test code=PCO2A) 65.8 mmHg 35-45 ARTERIAL BLOOD GAS PO2 (test code=PO2A) 218 mmHg 80-100 BICARBONATE TOTAL HCO3 (test code=HCO3) 29.4 mmol/L 22.0-26.0 BASE EXCESS (test code=TEJAL) 2.0 mmol/L -4-4 ABG O2 SATURATION (test code=SATA) 100 % 90-100 FIO2 (test code=FIO2A) 60 % ABG DELIVERY (test code=JOHANNE) Bipap ABG VENT RESP RATE (test code=RRA) 20 /MIN Performed by certified control panel operator at [facility] ABG TEMPERATURE (test code=TEMPA) 98.6 F ABG SITE (test code=SITEA) R Rad PREDICTED AA GRADIENT (test code=AP) 90 PREDICTED PO2 (test code=OP) 258 a/A RATIO (test code=RATIO) 0.62 TCO2 ARTERIAL (test code=TCO2A) 31 A-A GRADIENT (test code=AAGRADE) 131 COMPREHENSIVE METABOLIC [id number] 21:11:00* Test Item Value Reference Range Comments SODIUM (test code=NA) 136 mEq/L 134-147 POTASSIUM (test code=K) 6.1 mEq/L 3.4-5.0 CHLORIDE (test code=CL) 104 mEq/L 100-108 CARBON DIOXIDE (test code=CO2) 29 mEq/L 21-33 ANION GAP (test code=GAP) 9 0-20 GLUCOSE (test code=GLU) 95 mg/dL 70-110 BLOOD UREA NITROGEN (test code=BUN) 35 mg/dL 7-18 GLOMERULAR FILTRATION RATE (test code=GFR) 30.0 80-90 Units of measure=ml/min/1.73 m2 CREATININE (test code=CREAT) 2.2 mg/dL 0.6-1.3 TOTAL PROTEIN (test code=PROT) 7.2 g/dL 6.4-8.2 ALBUMIN (test code=ALB) 3.10 g/dL 3.4-5.0 CALCIUM (test code=CA) 8.5 mg/dL 8.0-10.5 BILIRUBIN TOTAL (test code=BILT) 0.60 mg/dL 0.0-1.0 SGOT/AST (test code=AST) 29 IUnit/L 15-37 SGPT/ALT (test code=ALT) 40 IUnit/L 15-65 ALKALINE PHOSPHATASE TOTAL (test code=ALKP) 120 IUnit/L 20-125 [id number] 21:11:00* Test Item Value Reference Range Comments LIPASE (test code=LIP) 50 IUnit/L 73-393 [id number] 21:11:00* Test Item Value Reference Range Comments TROPONIN-I (test code=TROPI) 0.077 ng/mL 0.000-0.045 Negative: <=0.045 Positive: >=0.046 Correlation with serial results, other cardiac markers andclinical findings is necessary to determine the clinicalsignificance of this result. Results using different methodologies should not be comparedto one another as quantitative results may vary by method. LACTIC [id number] 20:58:00* Test Item Value Reference Range Comments LACTIC ACID (test code=LACT) 2.5 mmol/L 0.4-1.9 PROTHROMBIN [id number] 20:51:00* Test Item Value Reference Range Comments PROTHROMBIN TIME PATIENT (test code=PTP) 13.2 SECONDS 9.3-12.9 INTERNATIONAL NORMAL RATIO (test code=INR) 1.2 0.8-1.2 TARGET INR BY INDICATION Indication INR1. Prophylaxis of venous thrombosis 2.0 - 3.0 (orthopedic surgery), Prophylaxis of venous thrombosis (other than high-risk surgery), Treatment of Deep Vein Thrombosis/Pulmonary Embolism, Prevention of systemic embolism - Tissue heart valves, Acute Myocardial Infarction (to prevent systemic embolism), Valvular heart disease, Atrial Fibrillation, Bileaflet mechanical valve in aortic position.2. Mechanical prosthetic valves (high risk), 2.5 - 3.5 Presence of Lupus Anticoagulant or Antiphospholipid Antibodies, Prevention of systemic embolism - Acute Myocardial Infarction (to prevent recurrent infarct). THROMBOPLASTIN TIME [id number] 20:51:00* Test Item Value Reference Range Comments THROMBOPLASTIN TIME PARTIAL (test code=PTT) 30.5 Seconds 25.0-39.5 Therapeutic Range: 50.4 - 88.3 Seconds Effective 02/24/2019 CBC W/AUTO [id number] 20:47:00* Test Item Value Reference Range Comments WHITE BLOOD CELL (test code=WBC) 11.32 x10 3/uL 4.5-11.0 RED BLOOD CELL (test code=RBC) 4.38 x10 6/uL 4.00-5.60 HEMOGLOBIN (test code=HGB) 14.3 g/dL 12.5-16.9 HEMATOCRIT (test code=HCT) 45.5 % 37.5-50.7 MEAN CELL VOLUME (test code=MCV) 103.9 fL 81.0-99.0 MEAN CELL HGB (test code=MCH) 32.6 pg 27.0-33.0 MEAN CELL HGB CONCETRATION (test code=MCHC) 31.4 g/dL 33.0-37.0 RED CELL DISTRIBUTION WIDTH CV (test code=RDW) 17.0 % 11.5-14.5 RED CELL DISTRIBUTION WIDTH SD (test code=RDW-SD) 66.3 fL 37.0-54.0 PLATELET COUNT (test code=PLT) 113 x10 3/uL 150-400 MEAN PLATELET VOLUME (test code=MPV) 11.7 fL 7.0-9.0 LYMPHOCYTE % (test code=LY%) % 14.0-32.0 MANUAL DIFF REQUIRED (test code=MDIFF) ARTERIAL BLOOD [id number] 20:30:00* Test Item Value Reference Range Comments ARTERIAL BLOOD GAS PH (test code=PHA) 7.321 7.35-7.45 ARTERIAL BLOOD GAS PCO2 (test code=PCO2A) 56.6 mmHg 35-45 ARTERIAL BLOOD GAS PO2 (test code=PO2A) 64 mmHg 80-100 BICARBONATE TOTAL HCO3 (test code=HCO3) 29.2 mmol/L 22.0-26.0 BASE EXCESS (test code=TEJAL) 3.0 mmol/L -4-4 ABG O2 SATURATION (test code=SATA) 90 % 90-100 ABG DELIVERY (test code=JOHANNE) Cannula ABG TEMPERATURE (test code=TEMPA) 98.6 F ABG SITE (test code=SITEA) R Rad TCO2 ARTERIAL (test code=TCO2A) 31 - CT HEAD/BRAIN W/O [id number] 20:00:00 Name: KELSEY JENNINGS [facility] : 1950 Age/S: 69 / M [address] [place] [address] Unit #: [id number] Loc: [place] [address] Phys: Ganesh Frederick MD Acct: [id number] Dis Date: Status: REG ER PHONE #: [phone] Exam Date: 03/18/20191927 FAX #: [phone] Reason: headache, chills, right sided weakness EXAMS: CPT CODE: [id number] CT HEAD/BRAIN W/O CONT 91485 CT HEAD WITHOUT CONTRAST INDICATION: Headache and chills. Right-sided weakness. COMPARISON: 02/13/2019 CT head. TECHNIQUE: Helical CT images obtained from the foramen magnum to the vertex without the use of int ravenous contrast on a multi detector CT. CT imaging performed at this loc ation utilizes radiation dose optimization techniques which include one or more of the following: -Automated exposure control -Adjustment of t he mA and/or kV according to patient size -Use of iterative reconstruction technique CT Radiation Dose DLP 584.23 mGy-cm FINDINGS: BRAIN PARENCHYMA: There are normal samaniego-white interfaces, sulci and gyri. There are no focal mass lesions on this noncontrast head CT. There is no mass effect, midline shift or edema. There are no intra-axial or extra-axial fluid collections, intraventricular or intraparenchymal h emorrhage. The pineal, sellar, brainstem, cerebellar and skull base regio ns appear unremarkable. VENTRICLES: The ventricular system is norm al. Basilar cisterns are normal. ORBITS, MASTOIDS AND PARAN DEVON SINUSES: The visualized orbits are unremarkable. Evidence of previou s surgery of the maxillary sinuses. Remaining paranasal sinuses appear no rmal. The mastoid air cells are clear. SKULL: The bony calv arium is intact. IMPRESSION: No acute intracranial process evident. END IMPRESSION WR2-H PAGE 1 Signed Re port (CONTINUED) Name: KELSEY JENNINGS [facility] [place] : 1950 Age/S: 69 / M [address] Unit #: [id number] Loc: [place], [place] [address] Phys: Ganesh Frederick MD Acct: [id number] Dis Date: Status: REG ER PHONE #: [phone] Exam Date: 03/18/20191927 FAX #: [phone] Reason: headache, chills, right sided weakness EXAMS: CPT CODE: [id number] CT HEAD/BRAIN W/O CONT 70513 <Continued> at 1999 Reported and signed by: Monty Snow M.D. CC: August Carpio MD; Ganesh Frederick MD Technologist:RT Soraya(R) CTDI: DLP: Trnscb Date/Time: 03/18/2019 (1999) LucianoRTB Orig Print D/T: S: 03/18/2019 (2002) PAGE 2 Signed Report - XR CHEST 1 [id number] 19:57:00 FAX: August Clifford MD [phone] [place]: St: REG FAX: Ganesh Frederick MD [phone] Name: KELSEY JENNINGS [facility] [place] : 1950 Age/S: 69/M [address] [place] [address] Unit #: [id number] Loc: [address] [place] [address] Phys: Ganesh Frederick MD Acct: [id number] Dis Date: Status: REG ER PHONE #: [phone] Exam Date: 03/18/20191951 FAX #: [phone] Reason: sepsis, chills, fever, hx of copd EXAMS: CPT CODE: [id number] XR CHEST 1 V 17216 1 VIEW CXR. PORTABLE EXAM 7:44 PM HISTORY: Headache. Sepsis, chills and fever. COMPARISON: 02/16/2019 chest x-ray. The lungs are clear with normal pulmonary vasculature. Cardiomediastinal silhouette normal. No pleural abnormality. Bony thorax intact. Pacemaker appears in good position. IMPRESSION: Normal exam. END OF IMPRESSI ON SL: WR2-H at 1956 Reported and signed by: Monty Snow M.D. CC: August Carpio MD; Ganesh Frederick MD Technologist: Dayanna Brownlee RT(R)(M); Solo Moody RT(R) Trnscrd Date/Time/By: 03/18/2019 (1956) : By: Rohan Orig Print D/T: S: 03/18/2019 (1999) PAGE 1 Signed Report INFLUENZA A [id number] 19:54:00* Test Item Value Reference Range Comments INFLUENZA A (test code=FLUAPCR) Negative Negative INFLUENZA B (test code=FLUBPCR) Negative Negative URINALYSIS [id number] 19:42:00* Test Item Value Reference Range Comments UA COLOR (test code=COLU) YELLOW YEL/STRAW UA APPEARANCE (test code=APPU) SL CLOUDY CLEAR UA GLUCOSE DIPSTICK (test code=DGLUU) NEGATIVE NEGATIVE UA BILIRUBIN DIPSTICK (test code=BILU) NEGATIVE NEGATIVE UA KETONE DIPSTICK (test code=KETU) NEGATIVE NEGATIVE UA SPECIFIC GRAVITY (test code=SGU) 1.016 1.005-1.030 UA BLOOD DIPSTICK (test code=RACHEL) 1+ NEGATIVE UA PH DIPSTICK (test code=RANDI) 5.0 5.0-7.0 UA PROTEIN DIPSTICK (test code=PROU) 2+ NEGATIVE UA UROBILINIOGEN DIPSTICK (test code=URO) 0.2 mg/dL 0.2-1.0 UA NITRITE DIPSTICK (test code=LISA) POSITIVE NEGATIVE UA LEUKOCYTE ESTERASE DIPSTICK (test code=LEUU) 1+ NEGATIVE UA WBC (test code=WBCU) >50 WBC/HPF 0-3 UA RBC (test code=RBCU) 21-50 RBC/HPF 0-3 UA BACTERIA (test code=BACU) 3+ /HPF NONE SEEN UA SQUAMOUS CELLS (test code=SQU) 0-5 /HPF NONE SEEN UA HYALINE CAST (test code=HYALU) 3-5 /LPF NONE SEEN UA MUCUS (test code=MUCU) TRACE /LPF NONE SEEN COMMENTS: Clean CatchUA CULT [id number] 19:42:00* Test Item Value Reference Range Comments UA CULTURE NEEDED? (test code=UACULT) YES,WBC>10 & EPI<=25 Criteria Culture Chk Criteria met, Urine Culture in-process. COMMENTS: Clean CatchB-TYPE NATRIURETIC [id number] 18:10:00* Test Item Value Reference Range Comments B-TYPE NATRIURETIC PEPTIDE (test code=BNP) 75.7 PG/ML 0-100 BASIC METABOLIC [id number] 17:56:00* Test Item Value Reference Range Comments SODIUM (test code=NA) 136 mEq/L 134-147 POTASSIUM (test code=K) 4.6 mEq/L 3.4-5.0 CHLORIDE (test code=CL) 100 mEq/L 100-108 CARBON DIOXIDE (test code=CO2) 32 mEq/L 21-33 ANION GAP (test code=GAP) 9 0-20 GLUCOSE (test code=GLU) 124 mg/dL 70-110 BLOOD UREA NITROGEN (test code=BUN) 19 mg/dL 7-18 GLOMERULAR FILTRATION RATE (test code=GFR) 55.1 80-90 Units of measure=ml/min/1.73 m2 CREATININE (test code=CREAT) 1.3 mg/dL 0.6-1.3 CALCIUM (test code=CA) 9.0 mg/dL 8.0-10.5 URINALYSIS [id number] 17:48:00* Test Item Value Reference Range Comments UA COLOR (test code=COLU) STRAW YEL/STRAW UA APPEARANCE (test code=APPU) CLEAR CLEAR UA GLUCOSE DIPSTICK (test code=DGLUU) NEGATIVE NEGATIVE UA BILIRUBIN DIPSTICK (test code=BILU) NEGATIVE NEGATIVE UA KETONE DIPSTICK (test code=KETU) NEGATIVE NEGATIVE UA SPECIFIC GRAVITY (test code=SGU) 1.005 1.005-1.030 UA BLOOD DIPSTICK (test code=RACHEL) NEGATIVE NEGATIVE UA PH DIPSTICK (test code=RANDI) 6.0 5.0-7.0 UA PROTEIN DIPSTICK (test code=PROU) NEGATIVE NEGATIVE UA UROBILINIOGEN DIPSTICK (test code=URO) 0.2 mg/dL 0.2-1.0 UA NITRITE DIPSTICK (test code=LISA) NEGATIVE NEGATIVE UA LEUKOCYTE ESTERASE DIPSTICK (test code=LEUU) NEGATIVE NEGATIVE UA WBC (test code=WBCU) 0-3 WBC/HPF 0-3 UA RBC (test code=RBCU) 0-3 RBC/HPF 0-3 UA BACTERIA (test code=BACU) NONE SEEN /HPF NONE SEEN UA SQUAMOUS CELLS (test code=SQU) NONE SEEN /HPF NONE SEEN CBC W/AUTO [id number] 17:42:00* Test Item Value Reference Range Comments WHITE BLOOD CELL (test code=WBC) 6.25 x10 3/uL 4.5-11.0 RED BLOOD CELL (test code=RBC) 4.31 x10 6/uL 4.00-5.60 HEMOGLOBIN (test code=HGB) 14.1 g/dL 12.5-16.9 HEMATOCRIT (test code=HCT) 43.2 % 37.5-50.7 MEAN CELL VOLUME (test code=MCV) 100.2 fL 81.0-99.0 MEAN CELL HGB (test code=MCH) 32.7 pg 27.0-33.0 MEAN CELL HGB CONCETRATION (test code=MCHC) 32.6 g/dL 33.0-37.0 RED CELL DISTRIBUTION WIDTH CV (test code=RDW) 16.8 % 11.5-14.5 RED CELL DISTRIBUTION WIDTH SD (test code=RDW-SD) 62.5 fL 37.0-54.0 PLATELET COUNT (test code=PLT) 131 x10 3/uL 150-400 MEAN PLATELET VOLUME (test code=MPV) 12.4 fL 7.0-9.0 NEUTROPHIL % (test code=NT%) 84.4 % 56.0-77.0 IMMATURE GRANULOCYTE % (test code=IG%) 0.6 % 0.0-2.0 LYMPHOCYTE % (test code=LY%) 8.0 % 14.0-32.0 MONOCYTE % (test code=MO%) 6.2 % 4.8-9.0 EOSINOPHIL % (test code=EO%) 0.6 % 0.3-3.7 BASOPHIL % (test code=BA%) 0.2 % 0.0-2.0 NUCLEATED RBC % (test code=NRBC%) 0.0 % 0-0 NEUTROPHIL # (test code=NT#) 5.27 x10 3/uL 2.0-7.6 IMMATURE GRANULOCYTE # (test code=IG#) 0.04 x10 3/uL 0.00-0.03 LYMPHOCYTE # (test code=LY#) 0.50 x10 3/uL 1.0-3.8 MONOCYTE # (test code=MO#) 0.39 x10 3/uL 0.1-0.8 EOSINOPHIL # (test code=EO#) 0.04 x10 3/uL 0.0-0.2 BASOPHIL # (test code=BA#) 0.01 x10 3/uL 0.0-0.2 NUCLEATED RBC # (test code=NRBC#) 0.00 x10 3/uL 0.0-0.1 MANUAL DIFF REQUIRED (test code=MDIFF) NO - XR CHEST 2 [id number] 09:03:00 FAX: August Clifford MD [phone] [place]: St: ADM Name: Beverly BOATENGKELSEY DOLAN [facility] : [birth year] Age/S: 69/M [address] [place] [address] Unit #: [id number] Loc: [address] [place] [id number] Phys: August Carpio MD Acct: [id number] Dis Date: Status: ADM IN PHONE #: [phone] Exam Date: 02/16/2019 0859 FAX #: [phone] Reason: SOB EXAMS: CPT CODE: [id number] XR CHEST 2 V 89131 CHEST RADIOGRAPHS - PA AND LATERAL: COMPARISON: February 08, 2019 CLINICAL HISTORY: SOB The cardiopericardial silhouette is within normal limits. Lungs are clear of acute infiltrates. Small calcified granuloma is stable in the right upper lobe. There is mild unchanged elevation of the right hemidiaphragm. No vascular congestion or pneumothorax. Left subclavian single lead transvenous pacemaker tip is in the region of the right ventricle. IMPRESSION: No acute pulmonary abnormality. at 0903 Reported and signed by: Jaye Gilliland M.D. CC: August Carpio MD Technologist: RT Sheron(Darian) Trnscrd Date/Time/By: 02/16/2019 (902) : By: [email or web address] Orig Print D /T: S: 02/16/2019 (06) PAGE 1 S igned Report [id number] 12:22:00* Test Item Value Reference Range Comments GLUBED (test code=GLUBED) 107 MG/DL 70-110 Performed by certified control panel operator at [facility] - CT HEAD/BRAIN W/O [id number] 08:11:00 Name: KELSEY JENNINGS [facility] : 1950 Age/S: 69 / M [address] [place] [address] Blvd Unit #: [id number] Loc: [place] [address] Phys: Henrietta Ojeda MD Acct: [id number] Dis Date: Status: ADM IN PHONE #: [phone] Exam Date: 02/13/2019 08 FAX #: [phone] Reason: ams EXAMS: CPT CODE: [id number] CT HEAD/BRAIN W/O CONT 95736 CT head without contrast 02/13/2019 HISTORY: Altered mental status PROCEDURE: Multiple axial images from the skull base to the sagittal reconstructed images were performed. DLP: 861.4 Comparison is made to CT performed on 01/29/2019 FINDINGS: No acute hemorrhage, midline shift, extra-axial fluid collection, hydrocephalus, or mass lesion is present. No cortical hypodensity to suggest an acute infarct is noted. There is mild atrophy. There are mild white matter hypodensities. The visualized mastoid air cells are clear. There is no air-fluid level in the visualized paranasal sinuses. Previous sinus surgery is noted. Distal internal carotid arterial calcifications are present. IMPRESSION: 1. No acute intracranial abnormality. 2. Mild atrophy and mild chronic philipp rovascular ischemic changes. SL: [id number] at 0811 Reported and signed by: Clay Combs M.D. CC: August Carpio MD; Henrietta mars MD Technologist:Cirilo Vasquez RT(R)(CT) CTDI: DLP: Trnscb Date/Time: 02/13/2019 (810) [email or web address] Orig Print D/T: S: 02/13/2019 (813) CTDI: DLP: PAGE 1 Signed Report BASIC METABOLIC [id number] 22:26:00* Test Item Value Reference Range Comments SODIUM (test code=NA) 137 mEq/L 134-147 POTASSIUM (test code=K) 4.7 mEq/L 3.4-5.0 CHLORIDE (test code=CL) 102 mEq/L 100-108 CARBON DIOXIDE (test code=CO2) 29 mEq/L 21-33 ANION GAP (test code=GAP) 11 0-20 GLUCOSE (test code=GLU) 110 mg/dL 70-110 BLOOD UREA NITROGEN (test code=BUN) 24 mg/dL 7-18 GLOMERULAR FILTRATION RATE (test code=GFR) 55.1 80-90 Units of measure=ml/min/1.73 m2 CREATININE (test code=CREAT) 1.3 mg/dL 0.6-1.3 CALCIUM (test code=CA) 8.8 mg/dL 8.0-10.5 [id number] 22:26:00* Test Item Value Reference Range Comments MAGNESIUM (test code=MAG) 2.00 mg/dL 1.8-2.4 CBC W/AUTO [id number] 07:21:00* Test Item Value Reference Range Comments WHITE BLOOD CELL (test code=WBC) 5.43 x10 3/uL 4.5-11.0 RED BLOOD CELL (test code=RBC) 4.04 x10 6/uL 4.00-5.60 HEMOGLOBIN (test code=HGB) 13.4 g/dL 12.5-16.9 HEMATOCRIT (test code=HCT) 40.4 % 37.5-50.7 MEAN CELL VOLUME (test code=MCV) 100.0 fL 81.0-99.0 MEAN CELL HGB (test code=MCH) 33.2 pg 27.0-33.0 MEAN CELL HGB CONCETRATION (test code=MCHC) 33.2 g/dL 33.0-37.0 RED CELL DISTRIBUTION WIDTH CV (test code=RDW) 17.1 % 11.5-14.5 RED CELL DISTRIBUTION WIDTH SD (test code=RDW-SD) 63.6 fL 37.0-54.0 PLATELET COUNT (test code=PLT) 89 x10 3/uL 150-400 IMMATURE PLATELET FRACTION (test code=IPF) 17.2 % 0.9-11.2 MEAN PLATELET VOLUME (test code=MPV) 13.0 fL 7.0-9.0 NEUTROPHIL % (test code=NT%) 68.2 % 56.0-77.0 IMMATURE GRANULOCYTE % (test code=IG%) 1.7 % 0.0-2.0 LYMPHOCYTE % (test code=LY%) 19.0 % 14.0-32.0 MONOCYTE % (test code=MO%) 9.4 % 4.8-9.0 EOSINOPHIL % (test code=EO%) 1.5 % 0.3-3.7 BASOPHIL % (test code=BA%) 0.2 % 0.0-2.0 NUCLEATED RBC % (test code=NRBC%) 0.0 % 0-0 NEUTROPHIL # (test code=NT#) 3.71 x10 3/uL 2.0-7.6 IMMATURE GRANULOCYTE # (test code=IG#) 0.09 x10 3/uL 0.00-0.03 LYMPHOCYTE # (test code=LY#) 1.03 x10 3/uL 1.0-3.8 MONOCYTE # (test code=MO#) 0.51 x10 3/uL 0.1-0.8 EOSINOPHIL # (test code=EO#) 0.08 x10 3/uL 0.0-0.2 BASOPHIL # (test code=BA#) 0.01 x10 3/uL 0.0-0.2 NUCLEATED RBC # (test code=NRBC#) 0.00 x10 3/uL 0.0-0.1 MANUAL DIFF REQUIRED (test code=MDIFF) NO BASIC METABOLIC [id number] 06:57:00* Test Item Value Reference Range Comments SODIUM (test code=NA) 138 mEq/L 134-147 POTASSIUM (test code=K) 3.9 mEq/L 3.4-5.0 CHLORIDE (test code=CL) 102 mEq/L 100-108 CARBON DIOXIDE (test code=CO2) 31 mEq/L 21-33 ANION GAP (test code=GAP) 9 0-20 GLUCOSE (test code=GLU) 85 mg/dL 70-110 BLOOD UREA NITROGEN (test code=BUN) 27 mg/dL 7-18 GLOMERULAR FILTRATION RATE (test code=GFR) 60.4 80-90 Units of measure=ml/min/1.73 m2 CREATININE (test code=CREAT) 1.2 mg/dL 0.6-1.3 CALCIUM (test code=CA) 8.5 mg/dL 8.0-10.5 [id number] 06:57:00* Test Item Value Reference Range Comments MAGNESIUM (test code=MAG) 2.20 mg/dL 1.8-2.4 CBC W/AUTO [id number] 05:24:00* Test Item Value Reference Range Comments WHITE BLOOD CELL (test code=WBC) 5.84 x10 3/uL 4.5-11.0 RED BLOOD CELL (test code=RBC) 4.10 x10 6/uL 4.00-5.60 HEMOGLOBIN (test code=HGB) 13.6 g/dL 12.5-16.9 HEMATOCRIT (test code=HCT) 41.7 % 37.5-50.7 MEAN CELL VOLUME (test code=MCV) 101.7 fL 81.0-99.0 MEAN CELL HGB (test code=MCH) 33.2 pg 27.0-33.0 MEAN CELL HGB CONCETRATION (test code=MCHC) 32.6 g/dL 33.0-37.0 RED CELL DISTRIBUTION WIDTH CV (test code=RDW) 17.1 % 11.5-14.5 RED CELL DISTRIBUTION WIDTH SD (test code=RDW-SD) 63.6 fL 37.0-54.0 PLATELET COUNT (test code=PLT) 89 x10 3/uL 150-400 MEAN PLATELET VOLUME (test code=MPV) 12.6 fL 7.0-9.0 NEUTROPHIL % (test code=NT%) 78.7 % 56.0-77.0 IMMATURE GRANULOCYTE % (test code=IG%) 2.1 % 0.0-2.0 LYMPHOCYTE % (test code=LY%) 11.3 % 14.0-32.0 MONOCYTE % (test code=MO%) 7.7 % 4.8-9.0 EOSINOPHIL % (test code=EO%) 0.0 % 0.3-3.7 BASOPHIL % (test code=BA%) 0.2 % 0.0-2.0 NUCLEATED RBC % (test code=NRBC%) 0.0 % 0-0 NEUTROPHIL # (test code=NT#) 4.60 x10 3/uL 2.0-7.6 IMMATURE GRANULOCYTE # (test code=IG#) 0.12 x10 3/uL 0.00-0.03 LYMPHOCYTE # (test code=LY#) 0.66 x10 3/uL 1.0-3.8 MONOCYTE # (test code=MO#) 0.45 x10 3/uL 0.1-0.8 EOSINOPHIL # (test code=EO#) 0.00 x10 3/uL 0.0-0.2 BASOPHIL # (test code=BA#) 0.01 x10 3/uL 0.0-0.2 NUCLEATED RBC # (test code=NRBC#) 0.00 x10 3/uL 0.0-0.1 MANUAL DIFF REQUIRED (test code=MDIFF) NO PLT [id number] 05:24:00* Test Item Value Reference Range Comments PLATELET ESTIMATE (test code=PLTEST) 124-155 THOUSAND ADEQUATE PLATELET MORPHOLOGY (test code=PLTMORPH) LARGE PLATELETS LARGE PLTS AND GIANT PLTS SEEN BASIC METABOLIC [id number] 05:20:00* Test Item Value Reference Range Comments SODIUM (test code=NA) 138 mEq/L 134-147 POTASSIUM (test code=K) 4.3 mEq/L 3.4-5.0 CHLORIDE (test code=CL) 102 mEq/L 100-108 CARBON DIOXIDE (test code=CO2) 32 mEq/L 21-33 ANION GAP (test code=GAP) 8 0-20 GLUCOSE (test code=GLU) 90 mg/dL 70-110 BLOOD UREA NITROGEN (test code=BUN) 27 mg/dL 7-18 GLOMERULAR FILTRATION RATE (test code=GFR) 60.4 80-90 Units of measure=ml/min/1.73 m2 CREATININE (test code=CREAT) 1.2 mg/dL 0.6-1.3 CALCIUM (test code=CA) 9.0 mg/dL 8.0-10.5 CBC W/AUTO [id number] 05:00:00* Test Item Value Reference Range Comments WHITE BLOOD CELL (test code=WBC) 5.84 x10 3/uL 4.5-11.0 RED BLOOD CELL (test code=RBC) 4.10 x10 6/uL 4.00-5.60 HEMOGLOBIN (test code=HGB) 13.6 g/dL 12.5-16.9 HEMATOCRIT (test code=HCT) 41.7 % 37.5-50.7 MEAN CELL VOLUME (test code=MCV) 101.7 fL 81.0-99.0 MEAN CELL HGB (test code=MCH) 33.2 pg 27.0-33.0 MEAN CELL HGB CONCETRATION (test code=MCHC) 32.6 g/dL 33.0-37.0 RED CELL DISTRIBUTION WIDTH CV (test code=RDW) 17.1 % 11.5-14.5 RED CELL DISTRIBUTION WIDTH SD (test code=RDW-SD) 63.6 fL 37.0-54.0 PLATELET COUNT (test code=PLT) 89 x10 3/uL 150-400 MEAN PLATELET VOLUME (test code=MPV) 12.6 fL 7.0-9.0 NEUTROPHIL % (test code=NT%) 78.7 % 56.0-77.0 IMMATURE GRANULOCYTE % (test code=IG%) 2.1 % 0.0-2.0 LYMPHOCYTE % (test code=LY%) 11.3 % 14.0-32.0 MONOCYTE % (test code=MO%) 7.7 % 4.8-9.0 EOSINOPHIL % (test code=EO%) 0.0 % 0.3-3.7 BASOPHIL % (test code=BA%) 0.2 % 0.0-2.0 NUCLEATED RBC % (test code=NRBC%) 0.0 % 0-0 NEUTROPHIL # (test code=NT#) 4.60 x10 3/uL 2.0-7.6 IMMATURE GRANULOCYTE # (test code=IG#) 0.12 x10 3/uL 0.00-0.03 LYMPHOCYTE # (test code=LY#) 0.66 x10 3/uL 1.0-3.8 MONOCYTE # (test code=MO#) 0.45 x10 3/uL 0.1-0.8 EOSINOPHIL # (test code=EO#) 0.00 x10 3/uL 0.0-0.2 BASOPHIL # (test code=BA#) 0.01 x10 3/uL 0.0-0.2 NUCLEATED RBC # (test code=NRBC#) 0.00 x10 3/uL 0.0-0.1 MANUAL DIFF REQUIRED (test code=MDIFF) NO PLT [id number] 05:00:00* Test Item Value Reference Range Comments PLATELET ESTIMATE (test code=PLTEST) THOUSAND ADEQUATE CBC W/AUTO [id number] 05:00:00* Test Item Value Reference Range Comments WHITE BLOOD CELL (test code=WBC) 5.84 x10 3/uL 4.5-11.0 RED BLOOD CELL (test code=RBC) 4.10 x10 6/uL 4.00-5.60 HEMOGLOBIN (test code=HGB) 13.6 g/dL 12.5-16.9 HEMATOCRIT (test code=HCT) 41.7 % 37.5-50.7 MEAN CELL VOLUME (test code=MCV) 101.7 fL 81.0-99.0 MEAN CELL HGB (test code=MCH) 33.2 pg 27.0-33.0 MEAN CELL HGB CONCETRATION (test code=MCHC) 32.6 g/dL 33.0-37.0 RED CELL DISTRIBUTION WIDTH CV (test code=RDW) 17.1 % 11.5-14.5 RED CELL DISTRIBUTION WIDTH SD (test code=RDW-SD) 63.6 fL 37.0-54.0 PLATELET COUNT (test code=PLT) 89 x10 3/uL 150-400 MEAN PLATELET VOLUME (test code=MPV) 12.6 fL 7.0-9.0 NEUTROPHIL % (test code=NT%) 78.7 % 56.0-77.0 IMMATURE GRANULOCYTE % (test code=IG%) 2.1 % 0.0-2.0 LYMPHOCYTE % (test code=LY%) 11.3 % 14.0-32.0 MONOCYTE % (test code=MO%) 7.7 % 4.8-9.0 EOSINOPHIL % (test code=EO%) 0.0 % 0.3-3.7 BASOPHIL % (test code=BA%) 0.2 % 0.0-2.0 NUCLEATED RBC % (test code=NRBC%) 0.0 % 0-0 NEUTROPHIL # (test code=NT#) 4.60 x10 3/uL 2.0-7.6 IMMATURE GRANULOCYTE # (test code=IG#) 0.12 x10 3/uL 0.00-0.03 LYMPHOCYTE # (test code=LY#) 0.66 x10 3/uL 1.0-3.8 MONOCYTE # (test code=MO#) 0.45 x10 3/uL 0.1-0.8 EOSINOPHIL # (test code=EO#) 0.00 x10 3/uL 0.0-0.2 BASOPHIL # (test code=BA#) 0.01 x10 3/uL 0.0-0.2 NUCLEATED RBC # (test code=NRBC#) 0.00 x10 3/uL 0.0-0.1 MANUAL DIFF REQUIRED (test code=MDIFF) NO PLT [id number] 05:00:00* Test Item Value Reference Range Comments PLATELET ESTIMATE (test code=PLTEST) THOUSAND ADEQUATE - XR CHEST 1 [id number] 07:59:00 FAX: Shiraz Hill MD [phone] [place]: St: ADM FAX: August Clifford MD [phone] Name: KELSEY JENNINGS [facility] [place] : 1950 Age/S: 69/M [address] [place] [address] Unit #: [id number] Loc: [address] [address] Phys: Shiraz Whipple MD Acct: [id number] Dis Date: Status: ADM IN PHONE #: [phone] Exam Date: 02/08/2019737 FAX #: [phone] Reason: SOB EXAMS: CPT CODE: [id number] XR CHEST 1 V 53947 1 VIEW CXR. PORTABLE EXAM 6:02 AM HISTORY: Shortness of breath. COMPARISON: 02/06/2019 chest x-ray. The lungs are clear with normal pulmonary vasculature. Cardiomediastinal silhouette normal. No pleural abnormality. Bony thorax intact. IMPRESSION: Normal exam. END OF IMPRESSION SL: [id number] at 0759 Reported and signed by: Monty Snow M.D. CC: Shiraz Whipple MD; August Carpio MD Technologist: Libertad Cano RT(R); Danielle Fontaine RT(R) Trnmtrd Date/Time/By: 02/08/2019 (0759) : By: Rohan Orig Print D/T: S: 02/08/2019 (0802) PAGE 1 Signed Report BASIC METABOLIC [id number] 05:05:00* Test Item Value Reference Range Comments SODIUM (test code=NA) 138 mEq/L 134-147 POTASSIUM (test code=K) 4.4 mEq/L 3.4-5.0 CHLORIDE (test code=CL) 100 mEq/L 100-108 CARBON DIOXIDE (test code=CO2) 35 mEq/L 21-33 ANION GAP (test code=GAP) 7 0-20 GLUCOSE (test code=GLU) 85 mg/dL 70-110 BLOOD UREA NITROGEN (test code=BUN) 28 mg/dL 7-18 GLOMERULAR FILTRATION RATE (test code=GFR) 60.4 80-90 Units of measure=ml/min/1.73 m2 CREATININE (test code=CREAT) 1.2 mg/dL 0.6-1.3 CALCIUM (test code=CA) 9.1 mg/dL 8.0-10.5 COMMENTS: DRAW TRIGLYCERIDES IF PT STILL ON PROPOFOL /[id number] 05:05:00* Test Item Value Reference Range Comments PHOSPHOROUS (test code=PHOS) 5.0 mg/dL 2.5-4.9 COMMENTS: DRAW TRIGLYCERIDES IF PT STILL ON PROPOFOL 02/[id number] 05:05:00* Test Item Value Reference Range Comments TRIGLYCERIDES (test code=TRIG) 131 mg/dL 40-150 COMMENTS: DRAW TRIGLYCERIDES IF PT STILL ON PROPOFOL 02/[id number] 05:05:00* Test Item Value Reference Range Comments MAGNESIUM (test code=MAG) 2.40 mg/dL 1.8-2.4 COMMENTS: DRAW TRIGLYCERIDES IF PT STILL ON PROPOFOL 02/08CBC W/AUTO DIFF 2019-02-08 04:44:00* Test Item Value Reference Range Comments WHITE BLOOD CELL (test code=WBC) 5.13 x10 3/uL 4.5-11.0 RED BLOOD CELL (test code=RBC) 4.12 x10 6/uL 4.00-5.60 HEMOGLOBIN (test code=HGB) 13.6 g/dL 12.5-16.9 HEMATOCRIT (test code=HCT) 42.2 % 37.5-50.7 MEAN CELL VOLUME (test code=MCV) 102.4 fL 81.0-99.0 MEAN CELL HGB (test code=MCH) 33.0 pg 27.0-33.0 MEAN CELL HGB CONCETRATION (test code=MCHC) 32.2 g/dL 33.0-37.0 RED CELL DISTRIBUTION WIDTH CV (test code=RDW) 17.2 % 11.5-14.5 RED CELL DISTRIBUTION WIDTH SD (test code=RDW-SD) 64.9 fL 37.0-54.0 PLATELET COUNT (test code=PLT) 85 x10 3/uL 150-400 MEAN PLATELET VOLUME (test code=MPV) 12.6 fL 7.0-9.0 NEUTROPHIL % (test code=NT%) 74.0 % 56.0-77.0 IMMATURE GRANULOCYTE % (test code=IG%) 2.5 % 0.0-2.0 LYMPHOCYTE % (test code=LY%) 13.6 % 14.0-32.0 MONOCYTE % (test code=MO%) 9.7 % 4.8-9.0 EOSINOPHIL % (test code=EO%) 0.0 % 0.3-3.7 BASOPHIL % (test code=BA%) 0.2 % 0.0-2.0 NUCLEATED RBC % (test code=NRBC%) 0.0 % 0-0 NEUTROPHIL # (test code=NT#) 3.79 x10 3/uL 2.0-7.6 IMMATURE GRANULOCYTE # (test code=IG#) 0.13 x10 3/uL 0.00-0.03 LYMPHOCYTE # (test code=LY#) 0.70 x10 3/uL 1.0-3.8 MONOCYTE # (test code=MO#) 0.50 x10 3/uL 0.1-0.8 EOSINOPHIL # (test code=EO#) 0.00 x10 3/uL 0.0-0.2 BASOPHIL # (test code=BA#) 0.01 x10 3/uL 0.0-0.2 NUCLEATED RBC # (test code=NRBC#) 0.00 x10 3/uL 0.0-0.1 MANUAL DIFF REQUIRED (test code=MDIFF) NO BASIC METABOLIC [id number] 07:05:00* Test Item Value Reference Range Comments SODIUM (test code=NA) 139 mEq/L 134-147 POTASSIUM (test code=K) 4.9 mEq/L 3.4-5.0 CHLORIDE (test code=CL) 99 mEq/L 100-108 CARBON DIOXIDE (test code=CO2) 36 mEq/L 21-33 ANION GAP (test code=GAP) 9 0-20 GLUCOSE (test code=GLU) 72 mg/dL 70-110 BLOOD UREA NITROGEN (test code=BUN) 31 mg/dL 7-18 GLOMERULAR FILTRATION RATE (test code=GFR) 66.8 80-90 Units of measure=ml/min/1.73 m2 CREATININE (test code=CREAT) 1.1 mg/dL 0.6-1.3 CALCIUM (test code=CA) 8.9 mg/dL 8.0-10.5 [id number] 07:05:00* Test Item Value Reference Range Comments MAGNESIUM (test code=MAG) 2.60 mg/dL 1.8-2.4 CBC W/AUTO [id number] 06:21:00* Test Item Value Reference Range Comments WHITE BLOOD CELL (test code=WBC) 5.50 x10 3/uL 4.5-11.0 RED BLOOD CELL (test code=RBC) 4.14 x10 6/uL 4.00-5.60 HEMOGLOBIN (test code=HGB) 13.8 g/dL 12.5-16.9 HEMATOCRIT (test code=HCT) 42.9 % 37.5-50.7 MEAN CELL VOLUME (test code=MCV) 103.6 fL 81.0-99.0 MEAN CELL HGB (test code=MCH) 33.3 pg 27.0-33.0 MEAN CELL HGB CONCETRATION (test code=MCHC) 32.2 g/dL 33.0-37.0 RED CELL DISTRIBUTION WIDTH CV (test code=RDW) 17.8 % 11.5-14.5 RED CELL DISTRIBUTION WIDTH SD (test code=RDW-SD) 68.2 fL 37.0-54.0 PLATELET COUNT (test code=PLT) 80 x10 3/uL 150-400 IMMATURE PLATELET FRACTION (test code=IPF) 16.9 % 0.9-11.2 MEAN PLATELET VOLUME (test code=MPV) 13.2 fL 7.0-9.0 NEUTROPHIL % (test code=NT%) 74.0 % 56.0-77.0 IMMATURE GRANULOCYTE % (test code=IG%) 2.7 % 0.0-2.0 LYMPHOCYTE % (test code=LY%) 12.7 % 14.0-32.0 MONOCYTE % (test code=MO%) 10.2 % 4.8-9.0 EOSINOPHIL % (test code=EO%) 0.0 % 0.3-3.7 BASOPHIL % (test code=BA%) 0.4 % 0.0-2.0 NUCLEATED RBC % (test code=NRBC%) 0.0 % 0-0 NEUTROPHIL # (test code=NT#) 4.07 x10 3/uL 2.0-7.6 IMMATURE GRANULOCYTE # (test code=IG#) 0.15 x10 3/uL 0.00-0.03 LYMPHOCYTE # (test code=LY#) 0.70 x10 3/uL 1.0-3.8 MONOCYTE # (test code=MO#) 0.56 x10 3/uL 0.1-0.8 EOSINOPHIL # (test code=EO#) 0.00 x10 3/uL 0.0-0.2 BASOPHIL # (test code=BA#) 0.02 x10 3/uL 0.0-0.2 NUCLEATED RBC # (test code=NRBC#) 0.00 x10 3/uL 0.0-0.1 MANUAL DIFF REQUIRED (test code=MDIFF) NO - XR ABDOMEN 1V (KUB)2019-02-06 10:04:00 FAX: Kirk Neville [phone] [place]: St: ADM FAX: August Clifford MD [phone] Name: JENNINGSKELSEY MAGDALENO [facility] : 1950 Age/S: 69/M [address] [place] [address] Unit #: [id number] Loc: G.3310 [facility] [place] [address] Phys: Kirk Raygoza MD Acct: [id number] Dis Date: Status: ADM IN PHONE #: [phone] Exam Date: 02/06/2019 1002 FAX #: [phone] Reason: constipation EXAMS: CPT CODE: [id number] XR ABDOMEN 1V (KUB) 78400 ABDOMEN KUB, 02/06/2019: COMPARISON: None CLINICAL HISTORY: constipation FINDINGS: AP view of the abdomen was obtained. Lower one half of the pelvis was not included on the radiograph. Additionally, the lateral aspects of both the right and left abdomen were not included on the x-ray. The abdominal gas pattern was nonspecific without definite evidence of obstruction. No obvious pathologic calcifications were seen overlying the kidneys. Fecal contents are present in the colon. NG tube tip p rojects over the gastric body. Spondylotic changes noted throughou t the lumbar spine. There are a few surgical clips in the left pel greg region. These are incompletely imaged on this exam. IM PRESSION: Limited study. Nonspecific bowel gas pattern. Electronically Signed by Dafne Gilliland on 9 at 1004 Reported and signed by: Jorge Gilliland M.D. CC: Kirk Raygoza MD; August Carpio MD Technologist: RT Shari(R) Trnscrd Date/Time/By: 02/06 (1004) : By: [email or web address] Orig Print D/T: S: 02/06/2019 (1007) PAGE 1 Signed Report ARTERIAL BLOOD [id number] 09:47:00* Test Item Value Reference Range Comments ARTERIAL BLOOD GAS PH (test code=PHA) 7.430 7.35-7.45 ARTERIAL BLOOD GAS PCO2 (test code=PCO2A) 66.2 mmHg 35-45 ARTERIAL BLOOD GAS PO2 (test code=PO2A) 97 mmHg 80-100 BICARBONATE TOTAL HCO3 (test code=HCO3) 44.0 mmol/L 22.0-26.0 BASE EXCESS (test code=TEJAL) 20.0 mmol/L -4-4 ABG O2 SATURATION (test code=SATA) 97 % 90-100 FIO2 (test code=FIO2A) 40 % ABG DELIVERY (test code=JOHANNE) Vent ABG VENT MODE (test code=MODEA) Other ABG TIDAL VOLUME (test code=TVA) 581 ml ABG PEEP (test code=PEEPA) 5 cmH2O ABG PRESSURE SUPPORT (test code=PSABG) 8 cmH2O Performed by certified control panel operator at [facility] ABG TEMPERATURE (test code=TEMPA) 98.6 F ABG SITE (test code=SITEA) L Rad PREDICTED AA GRADIENT (test code=AP) 53 PREDICTED PO2 (test code=OP) 152 a/A RATIO (test code=RATIO) 0.47 TCO2 ARTERIAL (test code=TCO2A) 46 A-A GRADIENT (test code=AAGRADE) 109 - XR CHEST 1 [id number] 07:26:00 FAX: Kirk Neville [phone] [place]: St: ADM FAX: August Clifford MD [phone] Name: KELSEY JENNINGS [facility] : 1950 Age/S: 69/M [address] [place] [address] Unit #: [id number] Loc: [address] [address] Phys: Kirk Butcher MD Acct: [id number] Dis Date: Status: ADM IN PHONE #: [phone] Exam Date: 02/06/2019 0556 FAX #: [phone] Reason: pna EXAMS: CPT CODE: [id number] XR CHEST 1 V 20941 CHEST 1 VIEW: 02/06/2019 COMPARISON: February 04, 2019 CLINICAL HISTORY: Pneumonia FINDINGS: Cardiopericardial silhouette is stable in size. Endotracheal tube, NG tube and left subclavian single lead transvenous pacemaker again noted. The lungs appear relatively clear. There is no pneumothorax and/or pneu momediastinum. IMPRESSION: No acute pulmonary abnormality. 19 at 0726 Reported and signed by: Jorge Gilliland M.D. CC: Kirk Raygoza MD; August Carpio MD T echnologist: Nino Chong, RT(R); Lorie Garcia RT(R) Trnscrd Date /Time/By: 02/06/2019 (07) : By: [email or web address] Orig Print D/T: S: 019 (2658) PAGE 1 Signed Report LDH [id number] 06:15:00* Test Item Value Reference Range Comments LDH (test code=LDHT) 735 IU/L 121-224 LDH 1 (test code=LDH1) 33 % 17-32 LDH 2 (test code=LDH2) 45 % 25-40 LDH 3 (test code=LDH3) 11 % 17-27 LDH 4 (test code=LDH4) 3 % 5-13 LDH 5 (LIVER) (test code=LDH5) 8 % 4-20 Performed At: [facility] [address] [id number] Kyle L MD Ph:[phone] At: [facility] [address] [id number] Sanjai MD Ph:[phone] COMMENTS: If possible may do on blood in labCOMPREHENSIVE METABOLIC PANEL 2019-02-06 05:40:00* Test Item Value Reference Range Comments SODIUM (test code=NA) 140 mEq/L 134-147 POTASSIUM (test code=K) 4.9 mEq/L 3.4-5.0 CHLORIDE (test code=CL) 100 mEq/L 100-108 CARBON DIOXIDE (test code=CO2) 37 mEq/L 21-33 ANION GAP (test code=GAP) 8 0-20 GLUCOSE (test code=GLU) 102 mg/dL 70-110 BLOOD UREA NITROGEN (test code=BUN) 30 mg/dL 7-18 GLOMERULAR FILTRATION RATE (test code=GFR) 66.8 80-90 Units of measure=ml/min/1.73 m2 CREATININE (test code=CREAT) 1.1 mg/dL 0.6-1.3 TOTAL PROTEIN (test code=PROT) 5.9 g/dL 6.4-8.2 ALBUMIN (test code=ALB) 2.60 g/dL 3.4-5.0 CALCIUM (test code=CA) 9.0 mg/dL 8.0-10.5 BILIRUBIN TOTAL (test code=BILT) 0.60 mg/dL 0.0-1.0 SGOT/AST (test code=AST) 66 IUnit/L 15-37 SGPT/ALT (test code=ALT) 148 IUnit/L 15-65 ALKALINE PHOSPHATASE TOTAL (test code=ALKP) 81 IUnit/L 20-125 ARTERIAL BLOOD [id number] 05:20:00* Test Item Value Reference Range Comments ARTERIAL BLOOD GAS PH (test code=PHA) 7.381 7.35-7.45 ARTERIAL BLOOD GAS PCO2 (test code=PCO2A) 64.2 mmHg 35-45 ARTERIAL BLOOD GAS PO2 (test code=PO2A) 94 mmHg 80-100 BICARBONATE TOTAL HCO3 (test code=HCO3) 38.3 mmol/L 22.0-26.0 BASE EXCESS (test code=TEJAL) 13.0 mmol/L -4-4 ABG O2 SATURATION (test code=SATA) 97 % 90-100 FIO2 (test code=FIO2A) 40 % ABG DELIVERY (test code=JOHANNE) Vent ABG VENT MODE (test code=MODEA) AC v con ABG VENT RESP RATE (test code=RRA) 16 /MIN ABG TIDAL VOLUME (test code=TVA) 500 ml ABG PEEP (test code=PEEPA) 5 cmH2O Performed by certified control panel operator at [facility] ABG TEMPERATURE (test code=TEMPA) 97.8 F ABG SITE (test code=SITEA) L Rad PREDICTED AA GRADIENT (test code=AP) 54 PREDICTED PO2 (test code=OP) 154 a/A RATIO (test code=RATIO) 0.45 TCO2 ARTERIAL (test code=TCO2A) 40 A-A GRADIENT (test code=AAGRADE) 114 LDH [id number] 05:15:00* Test Item Value Reference Range Comments LDH (test code=LDHT) 555 IU/L 121-224 LDH 1 (test code=LDH1) 36 % 17-32 LDH 2 (test code=LDH2) 46 % 25-40 LDH 3 (test code=LDH3) 10 % 17-27 LDH 4 (test code=LDH4) 2 % 5-13 LDH 5 (LIVER) (test code=LDH5) 6 % 4-20 Performed At: [facility] [address] [id number] Kyle L MD Ph:[phone] At: [facility] [address] [id number] Sanjai MD Ph:[phone] CBC W/AUTO [id number] 05:13:00* Test Item Value Reference Range Comments WHITE BLOOD CELL (test code=WBC) 4.75 x10 3/uL 4.5-11.0 RED BLOOD CELL (test code=RBC) 4.28 x10 6/uL 4.00-5.60 HEMOGLOBIN (test code=HGB) 14.0 g/dL 12.5-16.9 HEMATOCRIT (test code=HCT) 45.6 % 37.5-50.7 MEAN CELL VOLUME (test code=MCV) 106.5 fL 81.0-99.0 MEAN CELL HGB (test code=MCH) 32.7 pg 27.0-33.0 MEAN CELL HGB CONCETRATION (test code=MCHC) 30.7 g/dL 33.0-37.0 RED CELL DISTRIBUTION WIDTH CV (test code=RDW) 17.9 % 11.5-14.5 RED CELL DISTRIBUTION WIDTH SD (test code=RDW-SD) 69.9 fL 37.0-54.0 PLATELET COUNT (test code=PLT) 83 x10 3/uL 150-400 IMMATURE PLATELET FRACTION (test code=IPF) 17.7 % 0.9-11.2 MEAN PLATELET VOLUME (test code=MPV) 13.5 fL 7.0-9.0 NEUTROPHIL % (test code=NT%) 72.7 % 56.0-77.0 IMMATURE GRANULOCYTE % (test code=IG%) 2.9 % 0.0-2.0 LYMPHOCYTE % (test code=LY%) 12.0 % 14.0-32.0 MONOCYTE % (test code=MO%) 12.0 % 4.8-9.0 EOSINOPHIL % (test code=EO%) 0.0 % 0.3-3.7 BASOPHIL % (test code=BA%) 0.4 % 0.0-2.0 NUCLEATED RBC % (test code=NRBC%) 0.4 % 0-0 NEUTROPHIL # (test code=NT#) 3.45 x10 3/uL 2.0-7.6 IMMATURE GRANULOCYTE # (test code=IG#) 0.14 x10 3/uL 0.00-0.03 LYMPHOCYTE # (test code=LY#) 0.57 x10 3/uL 1.0-3.8 MONOCYTE # (test code=MO#) 0.57 x10 3/uL 0.1-0.8 EOSINOPHIL # (test code=EO#) 0.00 x10 3/uL 0.0-0.2 BASOPHIL # (test code=BA#) 0.02 x10 3/uL 0.0-0.2 NUCLEATED RBC # (test code=NRBC#) 0.02 x10 3/uL 0.0-0.1 MANUAL DIFF REQUIRED (test code=MDIFF) NO ARTERIAL BLOOD [id number] 10:11:00* Test Item Value Reference Range Comments ARTERIAL BLOOD GAS PH (test code=PHA) 7.359 7.35-7.45 ARTERIAL BLOOD GAS PCO2 (test code=PCO2A) 72.7 mmHg 35-45 ARTERIAL BLOOD GAS PO2 (test code=PO2A) 84 mmHg 80-100 BICARBONATE TOTAL HCO3 (test code=HCO3) 40.9 mmol/L 22.0-26.0 BASE EXCESS (test code=TEJAL) 15.0 mmol/L -4-4 ABG O2 SATURATION (test code=SATA) 95 % 90-100 FIO2 (test code=FIO2A) 40 % ABG DELIVERY (test code=JOHANNE) Vent ABG VENT MODE (test code=MODEA) AC v con ABG PEEP (test code=PEEPA) 5 cmH2O ABG PRESSURE SUPPORT (test code=PSABG) 8 cmH2O Performed by certified control panel operator at [facility] ABG TEMPERATURE (test code=TEMPA) 98.6 F ABG SITE (test code=SITEA) R Rad PREDICTED AA GRADIENT (test code=AP) 51 PREDICTED PO2 (test code=OP) 147 a/A RATIO (test code=RATIO) 0.42 TCO2 ARTERIAL (test code=TCO2A) 43 A-A GRADIENT (test code=AAGRADE) 114 ARTERIAL BLOOD [id number] 08:24:00* Test Item Value Reference Range Comments ARTERIAL BLOOD GAS PH (test code=PHA) 7.389 7.35-7.45 ARTERIAL BLOOD GAS PCO2 (test code=PCO2A) 63.5 mmHg 35-45 ARTERIAL BLOOD GAS PO2 (test code=PO2A) 102 mmHg 80-100 BICARBONATE TOTAL HCO3 (test code=HCO3) 38.3 mmol/L 22.0-26.0 BASE EXCESS (test code=TEJAL) 13.0 mmol/L -4-4 ABG O2 SATURATION (test code=SATA) 98 % 90-100 FIO2 (test code=FIO2A) 40 % ABG DELIVERY (test code=JOHANNE) Vent ABG VENT MODE (test code=MODEA) AC v con ABG VENT RESP RATE (test code=RRA) 16 /MIN ABG TIDAL VOLUME (test code=TVA) 500 ml ABG PEEP (test code=PEEPA) 5 cmH2O Performed by certified control panel operator at [facility] ABG TEMPERATURE (test code=TEMPA) 98.6 F ABG SITE (test code=SITEA) R Rad PREDICTED AA GRADIENT (test code=AP) 54 PREDICTED PO2 (test code=OP) 155 a/A RATIO (test code=RATIO) 0.49 TCO2 ARTERIAL (test code=TCO2A) 40 A-A GRADIENT (test code=AAGRADE) 107 ARTERIAL BLOOD [id number] 08:11:00* Test Item Value Reference Range Comments ARTERIAL BLOOD GAS PH (test code=PHA) 7.397 7.35-7.45 ARTERIAL BLOOD GAS PCO2 (test code=PCO2A) 67.6 mmHg 35-45 ARTERIAL BLOOD GAS PO2 (test code=PO2A) 51 mmHg 80-100 BICARBONATE TOTAL HCO3 (test code=HCO3) 41.5 mmol/L 22.0-26.0 BASE EXCESS (test code=TEJAL) 17.0 mmol/L -4-4 ABG O2 SATURATION (test code=SATA) 84 % 90-100 FIO2 (test code=FIO2A) 40 % ABG DELIVERY (test code=JOHANNE) Vent ABG VENT MODE (test code=MODEA) AC v con ABG VENT RESP RATE (test code=RRA) 16 /MIN ABG TIDAL VOLUME (test code=TVA) 500 ml ABG PEEP (test code=PEEPA) 5 cmH2O Performed by certified control panel operator at [facility] ABG TEMPERATURE (test code=TEMPA) 98.6 F ABG SITE (test code=SITEA) R Rad PREDICTED AA GRADIENT (test code=AP) 53 PREDICTED PO2 (test code=OP) 151 a/A RATIO (test code=RATIO) 0.25 TCO2 ARTERIAL (test code=TCO2A) 44 A-A GRADIENT (test code=AAGRADE) 153 BASIC METABOLIC [id number] 08:51:00* Test Item Value Reference Range Comments SODIUM (test code=NA) 143 mEq/L 134-147 POTASSIUM (test code=K) 4.0 mEq/L 3.4-5.0 CHLORIDE (test code=CL) 101 mEq/L 100-108 CARBON DIOXIDE (test code=CO2) 39 mEq/L 21-33 ANION GAP (test code=GAP) 7 0-20 GLUCOSE (test code=GLU) 89 mg/dL 70-110 BLOOD UREA NITROGEN (test code=BUN) 32 mg/dL 7-18 GLOMERULAR FILTRATION RATE (test code=GFR) 55.1 80-90 Units of measure=ml/min/1.73 m2 CREATININE (test code=CREAT) 1.3 mg/dL 0.6-1.3 CALCIUM (test code=CA) 8.8 mg/dL 8.0-10.5 - XR CHEST 1 [id number] 08:21:00 FAX: Kirk Neville [phone] [place]: St: ADM FAX: August Clifford MD [phone] Name: KELSEY JENNINGS [facility] : 1950 Age/S: 69/M [address] [place], [place] [address] Unit #: [id number] Loc: G.3310 [place] [address] Phys: Kirk Butcher MD Acct: [id number] Dis Date: Status: ADM IN PHONE #: [phone] Exam Date: 02/04/2019 0553 FAX #: [phone] Reason: hypoxia EXAMS: CPT CODE: [id number] XR CHEST 1 V [id number] CHEST 1 VIEW: 02/04/2019 COMPARISON: February 03, 2019 CLINICAL HISTORY: hypoxia FINDINGS: Cardiopericardial silhouette is stable in size. Lungs appear grossly clear. Lung volumes are low. Endotracheal tube, NG tube and left subclavian transvenous pacemaker are again visualized. There is no pneumothorax. Electrode patch overlies the right hemithorax. IMPRESSION: No acute pulmonary disease. at 0821 Reported and signed by: Jorge Gilliland M.D. CC: Kirk Raygoza MD; August Carpio MD Technologist: Nino Chong, RT(R); Lorie Garcia RT(R) Trnscrd Date/Time/By: 02/04/2019 (820) : By: [email or web address] Orig Print D/T: S: 02/04/2019 (9673) PAGE 1 Signed Report CBC W/AUTO DIFF 2019-02-04 05:39:00* Test Item Value Reference Range Comments WHITE BLOOD CELL (test code=WBC) 3.57 x10 3/uL 4.5-11.0 RED BLOOD CELL (test code=RBC) 4.28 x10 6/uL 4.00-5.60 HEMOGLOBIN (test code=HGB) 14.4 g/dL 12.5-16.9 HEMATOCRIT (test code=HCT) 46.1 % 37.5-50.7 MEAN CELL VOLUME (test code=MCV) 107.7 fL 81.0-99.0 MEAN CELL HGB (test code=MCH) 33.6 pg 27.0-33.0 MEAN CELL HGB CONCETRATION (test code=MCHC) 31.2 g/dL 33.0-37.0 RED CELL DISTRIBUTION WIDTH CV (test code=RDW) 18.5 % 11.5-14.5 RED CELL DISTRIBUTION WIDTH SD (test code=RDW-SD) 73.2 fL 37.0-54.0 PLATELET COUNT (test code=PLT) 80 x10 3/uL 150-400 MEAN PLATELET VOLUME (test code=MPV) 12.6 fL 7.0-9.0 NEUTROPHIL % (test code=NT%) 54.6 % 56.0-77.0 IMMATURE GRANULOCYTE % (test code=IG%) 4.2 % 0.0-2.0 LYMPHOCYTE % (test code=LY%) 27.2 % 14.0-32.0 MONOCYTE % (test code=MO%) 11.8 % 4.8-9.0 EOSINOPHIL % (test code=EO%) 1.1 % 0.3-3.7 BASOPHIL % (test code=BA%) 1.1 % 0.0-2.0 NUCLEATED RBC % (test code=NRBC%) 2.0 % 0-0 NEUTROPHIL # (test code=NT#) 1.95 x10 3/uL 2.0-7.6 IMMATURE GRANULOCYTE # (test code=IG#) 0.15 x10 3/uL 0.00-0.03 LYMPHOCYTE # (test code=LY#) 0.97 x10 3/uL 1.0-3.8 MONOCYTE # (test code=MO#) 0.42 x10 3/uL 0.1-0.8 EOSINOPHIL # (test code=EO#) 0.04 x10 3/uL 0.0-0.2 BASOPHIL # (test code=BA#) 0.04 x10 3/uL 0.0-0.2 NUCLEATED RBC # (test code=NRBC#) 0.07 x10 3/uL 0.0-0.1 MANUAL DIFF REQUIRED (test code=MDIFF) NO CBC W/AUTO [id number] 13:31:00* Test Item Value Reference Range Comments WHITE BLOOD CELL (test code=WBC) 4.15 x10 3/uL 4.5-11.0 RED BLOOD CELL (test code=RBC) 4.12 x10 6/uL 4.00-5.60 HEMOGLOBIN (test code=HGB) 13.7 g/dL 12.5-16.9 HEMATOCRIT (test code=HCT) 44.5 % 37.5-50.7 MEAN CELL VOLUME (test code=MCV) 108.0 fL 81.0-99.0 MEAN CELL HGB (test code=MCH) 33.3 pg 27.0-33.0 MEAN CELL HGB CONCETRATION (test code=MCHC) 30.8 g/dL 33.0-37.0 RED CELL DISTRIBUTION WIDTH CV (test code=RDW) 18.3 % 11.5-14.5 RED CELL DISTRIBUTION WIDTH SD (test code=RDW-SD) 73.3 fL 37.0-54.0 PLATELET COUNT (test code=PLT) 82 x10 3/uL 150-400 MEAN PLATELET VOLUME (test code=MPV) 12.3 fL 7.0-9.0 NEUTROPHIL % (test code=NT%) 73.8 % 56.0-77.0 IMMATURE GRANULOCYTE % (test code=IG%) 2.9 % 0.0-2.0 LYMPHOCYTE % (test code=LY%) 10.8 % 14.0-32.0 MONOCYTE % (test code=MO%) 11.8 % 4.8-9.0 EOSINOPHIL % (test code=EO%) 0.0 % 0.3-3.7 BASOPHIL % (test code=BA%) 0.7 % 0.0-2.0 NUCLEATED RBC % (test code=NRBC%) 1.4 % 0-0 NEUTROPHIL # (test code=NT#) 3.06 x10 3/uL 2.0-7.6 IMMATURE GRANULOCYTE # (test code=IG#) 0.12 x10 3/uL 0.00-0.03 LYMPHOCYTE # (test code=LY#) 0.45 x10 3/uL 1.0-3.8 MONOCYTE # (test code=MO#) 0.49 x10 3/uL 0.1-0.8 EOSINOPHIL # (test code=EO#) 0.00 x10 3/uL 0.0-0.2 BASOPHIL # (test code=BA#) 0.03 x10 3/uL 0.0-0.2 NUCLEATED RBC # (test code=NRBC#) 0.06 x10 3/uL 0.0-0.1 MANUAL DIFF REQUIRED (test code=MDIFF) NO PLT [id number] 13:31:00* Test Item Value Reference Range Comments PLATELET ESTIMATE (test code=PLTEST) 120-150 THOUSAND ADEQUATE PLATELET MORPHOLOGY (test code=PLTMORPH) LARGE PLATELETS [id number] 11:51:00* Test Item Value Reference Range Comments GLUBED (test code=GLUBED) 95 MG/DL 70-110 Performed by certified control panel operator at [facility] B-TYPE NATRIURETIC [id number] 09:56:00* Test Item Value Reference Range Comments B-TYPE NATRIURETIC PEPTIDE (test code=BNP) 81.4 PG/ML 0-100 BASIC METABOLIC [id number] 08:33:00* Test Item Value Reference Range Comments SODIUM (test code=NA) 142 mEq/L 134-147 POTASSIUM (test code=K) 3.9 mEq/L 3.4-5.0 CHLORIDE (test code=CL) 101 mEq/L 100-108 CARBON DIOXIDE (test code=CO2) 38 mEq/L 21-33 ANION GAP (test code=GAP) 7 0-20 GLUCOSE (test code=GLU) 127 mg/dL 70-110 BLOOD UREA NITROGEN (test code=BUN) 32 mg/dL 7-18 GLOMERULAR FILTRATION RATE (test code=GFR) 46.7 80-90 Units of measure=ml/min/1.73 m2 CREATININE (test code=CREAT) 1.5 mg/dL 0.6-1.3 CALCIUM (test code=CA) 8.2 mg/dL 8.0-10.5 [id number] 08:33:00* Test Item Value Reference Range Comments PHOSPHOROUS (test code=PHOS) 5.5 mg/dL 2.5-4.9 [id number] 08:33:00* Test Item Value Reference Range Comments MAGNESIUM (test code=MAG) 2.30 mg/dL 1.8-2.4 - XR CHEST 1 [id number] 08:30:00 FAX: Kirk Neville [phone] [place]: St: [facility] FAX: August Clifford MD [phone] Name: KELSEY JENNINGS [facility] : 1950 Age/S: 69/M [address] [place] [address] Unit #: [id number] Loc: [id number] [id number] Phys: Kirk Butcher MD Acct: [id number] Dis Date: Status: ADM IN PHONE #: [phone] Exam Date: 02/03/2019 08 FAX #: [phone] Reason: RESPIRATORY FAILURE EXAMS: CPT CODE: [id number] XR CHEST 1 V 68395 Study: - XR CHEST 1 V 02/03/2019 7:32 AM Patient Name: KELSEY JENNINGS MR: [id number] : 1950; Age: 69 years y/o Male Ordering Physician: Kirk Raygoza MD Clinical Indication: RESPIRATORY FAILURE Comparison: January 31, 2019 x-ray FINDINGS LUNGS: The hypoinflated lungs are clear of consolidation, pleural effusion, and pneumothorax. HEART AND MEDIASTINUM: Heart size at the upper limits of normal with a left subclavian pacemaker. LINES: Left support lines and tubes are unchanged. OSSEOUS STRUCTURES: Mild to moderate spinal degenerative change without acute fracture, dislocation, or suspicious focal osseous lesion. Suture anchor in the left humeral head OTHER: None. IMPRESSION: No acute abnormality as above discussed. SL: [id number] at 0830 Reported and signed by: Fabricio Sadler M.D. CC: Kirk Raygoza MD; August Carpio MD Technologist: RT Sheron(R) Trnscrd Date/Time/By: 02/03/2019 (0002) : By: [email or web address] Orig Print D/T: S: 02/03/2019 (9055) PAGE 1 Signed Report CBC W/AUTO [id number] 08:11:00* Test Item Value Reference Range Comments WHITE BLOOD CELL (test code=WBC) 4.15 x10 3/uL 4.5-11.0 RED BLOOD CELL (test code=RBC) 4.12 x10 6/uL 4.00-5.60 HEMOGLOBIN (test code=HGB) 13.7 g/dL 12.5-16.9 HEMATOCRIT (test code=HCT) 44.5 % 37.5-50.7 MEAN CELL VOLUME (test code=MCV) 108.0 fL 81.0-99.0 MEAN CELL HGB (test code=MCH) 33.3 pg 27.0-33.0 MEAN CELL HGB CONCETRATION (test code=MCHC) 30.8 g/dL 33.0-37.0 RED CELL DISTRIBUTION WIDTH CV (test code=RDW) 18.3 % 11.5-14.5 RED CELL DISTRIBUTION WIDTH SD (test code=RDW-SD) 73.3 fL 37.0-54.0 PLATELET COUNT (test code=PLT) 82 x10 3/uL 150-400 MEAN PLATELET VOLUME (test code=MPV) 12.3 fL 7.0-9.0 NEUTROPHIL % (test code=NT%) 73.8 % 56.0-77.0 IMMATURE GRANULOCYTE % (test code=IG%) 2.9 % 0.0-2.0 LYMPHOCYTE % (test code=LY%) 10.8 % 14.0-32.0 MONOCYTE % (test code=MO%) 11.8 % 4.8-9.0 EOSINOPHIL % (test code=EO%) 0.0 % 0.3-3.7 BASOPHIL % (test code=BA%) 0.7 % 0.0-2.0 NUCLEATED RBC % (test code=NRBC%) 1.4 % 0-0 NEUTROPHIL # (test code=NT#) 3.06 x10 3/uL 2.0-7.6 IMMATURE GRANULOCYTE # (test code=IG#) 0.12 x10 3/uL 0.00-0.03 LYMPHOCYTE # (test code=LY#) 0.45 x10 3/uL 1.0-3.8 MONOCYTE # (test code=MO#) 0.49 x10 3/uL 0.1-0.8 EOSINOPHIL # (test code=EO#) 0.00 x10 3/uL 0.0-0.2 BASOPHIL # (test code=BA#) 0.03 x10 3/uL 0.0-0.2 NUCLEATED RBC # (test code=NRBC#) 0.06 x10 3/uL 0.0-0.1 MANUAL DIFF REQUIRED (test code=MDIFF) NO PLT [id number] 08:11:00* Test Item Value Reference Range Comments PLATELET ESTIMATE (test code=PLTEST) THOUSAND ADEQUATE CBC W/AUTO [id number] 08:11:00* Test Item Value Reference Range Comments WHITE BLOOD CELL (test code=WBC) 4.15 x10 3/uL 4.5-11.0 RED BLOOD CELL (test code=RBC) 4.12 x10 6/uL 4.00-5.60 HEMOGLOBIN (test code=HGB) 13.7 g/dL 12.5-16.9 HEMATOCRIT (test code=HCT) 44.5 % 37.5-50.7 MEAN CELL VOLUME (test code=MCV) 108.0 fL 81.0-99.0 MEAN CELL HGB (test code=MCH) 33.3 pg 27.0-33.0 MEAN CELL HGB CONCETRATION (test code=MCHC) 30.8 g/dL 33.0-37.0 RED CELL DISTRIBUTION WIDTH CV (test code=RDW) 18.3 % 11.5-14.5 RED CELL DISTRIBUTION WIDTH SD (test code=RDW-SD) 73.3 fL 37.0-54.0 PLATELET COUNT (test code=PLT) 82 x10 3/uL 150-400 MEAN PLATELET VOLUME (test code=MPV) 12.3 fL 7.0-9.0 NEUTROPHIL % (test code=NT%) 73.8 % 56.0-77.0 IMMATURE GRANULOCYTE % (test code=IG%) 2.9 % 0.0-2.0 LYMPHOCYTE % (test code=LY%) 10.8 % 14.0-32.0 MONOCYTE % (test code=MO%) 11.8 % 4.8-9.0 EOSINOPHIL % (test code=EO%) 0.0 % 0.3-3.7 BASOPHIL % (test code=BA%) 0.7 % 0.0-2.0 NUCLEATED RBC % (test code=NRBC%) 1.4 % 0-0 NEUTROPHIL # (test code=NT#) 3.06 x10 3/uL 2.0-7.6 IMMATURE GRANULOCYTE # (test code=IG#) 0.12 x10 3/uL 0.00-0.03 LYMPHOCYTE # (test code=LY#) 0.45 x10 3/uL 1.0-3.8 MONOCYTE # (test code=MO#) 0.49 x10 3/uL 0.1-0.8 EOSINOPHIL # (test code=EO#) 0.00 x10 3/uL 0.0-0.2 BASOPHIL # (test code=BA#) 0.03 x10 3/uL 0.0-0.2 NUCLEATED RBC # (test code=NRBC#) 0.06 x10 3/uL 0.0-0.1 MANUAL DIFF REQUIRED (test code=MDIFF) NO PLT [id number] 08:11:00* Test Item Value Reference Range Comments PLATELET ESTIMATE (test code=PLTEST) THOUSAND ADEQUATE VITAMIN D 1,37-[id number] 14:10:00* Test Item Value Reference Range Comments VITAMIN D 1,25-DIHYDROXY (test seom=SDQR863) 80.6 pg/mL 19.9-79.3 Performed At: [facility] [id number] Sanjai MD Ph:[phone] [id number] 11:56:00* Test Item Value Reference Range Comments GLUBED (test code=GLUBED) 68 MG/DL 70-110 Performed by certified control panel operator at [facility] AG PROSTATE [id number] 11:18:00* Test Item Value Reference Range Comments AG PROSTATE SPECIFIC (test code=PSA) 0.1 ng/mL 0.05-4.0 AG PROSTATE [id number] 11:18:00* Test Item Value Reference Range Comments AG PROSTATE SPECIFIC (test code=PSA) 0.1 ng/mL 0.05-4.0 CBC W/MANUAL [id number] 10:42:00* Test Item Value Reference Range Comments WHITE BLOOD CELL (test code=WBC) 5.28 x10 3/uL 4.5-11.0 RED BLOOD CELL (test code=RBC) 4.24 x10 6/uL 4.00-5.60 HEMOGLOBIN (test code=HGB) 14.1 g/dL 12.5-16.9 HEMATOCRIT (test code=HCT) 45.8 % 37.5-50.7 MEAN CELL VOLUME (test code=MCV) 108.0 fL 81.0-99.0 MEAN CELL HGB (test code=MCH) 33.3 pg 27.0-33.0 MEAN CELL HGB CONCETRATION (test code=MCHC) 30.8 g/dL 33.0-37.0 RED CELL DISTRIBUTION WIDTH CV (test code=RDW) 18.6 % 11.5-14.5 RED CELL DISTRIBUTION WIDTH SD (test code=RDW-SD) 74.4 fL 37.0-54.0 PLATELET COUNT (test code=PLT) 87 x10 3/uL 150-400 MEAN PLATELET VOLUME (test code=MPV) 13.0 fL 7.0-9.0 SEGMENTED NEUTROPHILS (test code=SEG) 78 % 37-69 LYMPHOCYTE (test code=LYMPH) 12 % 23-55 MONOCYTE (test code=MON) 10 % 0-10 NUCLEATED RED BLOOD CELL (test code=NRBC) 1 % POIKILOCYTOSIS (test code=POIK) SLIGHT ANISOCYTOSIS (test code=ANISO) 1+ MACROCYTOSIS (test code=MACR) 1+ TARGET CELLS (test code=TGT) SEEN TEAR DROP CELLS (test code=TEAR) SEEN PLATELET ESTIMATE (test code=PLTEST) 108-135 THOUSAND ADEQUATE PLATELET MORPHOLOGY (test code=PLTMORPH) LARGE PLATELETS FEW GIANT PLTS RETIC COUNT (AUTOMATED)2019-02-02 10:42:00* Test Item Value Reference Range Comments RETIC COUNT (AUTOMATED) (test code=RETICA) 2.0 % 0.3-2.3 LACTIC DEHYDROGENASE(LDH)2019-02-02 08:12:00* Test Item Value Reference Range Comments LACTIC DEHYDROGENASE(LDH) (test code=LDH) 700 IUnits/L 87-241 FOLIC [id number] 08:12:00* Test Item Value Reference Range Comments FOLIC ACID (test code=FOL) 28.4 ng/mL 3.1-17.5 LACTIC DEHYDROGENASE(LDH)2019-02-02 07:05:00* Test Item Value Reference Range Comments LACTIC DEHYDROGENASE(LDH) (test code=LDH) 700 IUnits/L 87-241 FOLIC [id number] 07:05:00* Test Item Value Reference Range Comments FOLIC ACID (test code=FOL) ng/mL 3.1-17.5 CBC W/MANUAL [id number] 05:54:00* Test Item Value Reference Range Comments WHITE BLOOD CELL (test code=WBC) 5.28 x10 3/uL 4.5-11.0 RED BLOOD CELL (test code=RBC) 4.24 x10 6/uL 4.00-5.60 HEMOGLOBIN (test code=HGB) 14.1 g/dL 12.5-16.9 HEMATOCRIT (test code=HCT) 45.8 % 37.5-50.7 MEAN CELL VOLUME (test code=MCV) 108.0 fL 81.0-99.0 MEAN CELL HGB (test code=MCH) 33.3 pg 27.0-33.0 MEAN CELL HGB CONCETRATION (test code=MCHC) 30.8 g/dL 33.0-37.0 RED CELL DISTRIBUTION WIDTH CV (test code=RDW) 18.6 % 11.5-14.5 RED CELL DISTRIBUTION WIDTH SD (test code=RDW-SD) 74.4 fL 37.0-54.0 PLATELET COUNT (test code=PLT) 87 x10 3/uL 150-400 MEAN PLATELET VOLUME (test code=MPV) 13.0 fL 7.0-9.0 ANISOCYTOSIS (test code=ANISO) PLATELET ESTIMATE (test code=PLTEST) THOUSAND ADEQUATE RETIC COUNT (AUTOMATED)2019-02-02 05:54:00* Test Item Value Reference Range Comments RETIC COUNT (AUTOMATED) (test code=RETICA) 2.0 % 0.3-2.3 VITAMIN B6/[id number] 04:06:00* Test Item Value Reference Range Comments VITAMIN B6/PYRIDOXINE (test code=VITB6) 32.6 ug/L 5.3-46.7 This test was developed and its performance characteristicsdetermined by [facility]. It has not been cleared orapproved by the Food and Drug Administration.Performed At: [address] [id number] Fry MD Ph:[phone] LIPID PROFILE (CORONARY RISK)2019-02-01 15:08:00* Test Item Value Reference Range Comments TRIGLYCERIDES (test code=TRIG) 183 mg/dL 40-150 CHOLESTEROL (test code=CHOL) 229 mg/dL <200 CHOLESTEROL/HDL RATIO (test code=CHOLHDL) 4.77 RATIO 3.43-4.97 RISK ASSOCIATED WITH CHOL/HDL RATIOS: RISK MALE FEMALE1/2 AVERAGE 3.43 3.27AVERAGE 4.97 4.442X AVERAGE 9.55 7.053X AVERAGE 23.39 11.04 NOTE THAT THE REFERENCE VALUE IS RELATEDTO RISK LEVELS RECOMMENDED BY THE NATL.HEART, LUNG, AND BLOOD INST. HDL CHOLESTEROL (test code=HDL) 48.0 mg/dL 32-72 LIPOPROTEIN LDL (test code=LDL) 149 mg/dL 0-100 <100 [id number] NEAR OPTIMAL/ABOVE [id number] HIGH>KL=363 VERY HIGH*Guidelines provided by the National Cholesterol EducationProgram Adult Treatment Panel III URIC [id number] 15:08:00* Test Item Value Reference Range Comments URIC ACID (test code=URIC) 13.8 mg/dL 2.6-7.2 [id number] 15:08:00* Test Item Value Reference Range Comments LIPASE (test code=LIP) 364 IUnit/L 73-393 [id number] 15:08:00* Test Item Value Reference Range Comments MAGNESIUM (test code=MAG) 2.10 mg/dL 1.8-2.4 VITAMIN [id number] 15:08:00* Test Item Value Reference Range Comments VITAMIN B12 (test code=VITB12) 1488 pg/mL 193-986 THYROID STIMULATING [id number] 15:08:00* Test Item Value Reference Range Comments THYROID STIMULATING HORMONE (test code=TSH) 4.59 0.42-5.47 Results in riaz-International Units/mL [id number] 15:08:00* Test Item Value Reference Range Comments TROPONIN-I (test code=TROPI) 0.020 ng/mL 0.000-0.045 Negative: <=0.045 Positive: >=0.046 Correlation with serial results, other cardiac markers andclinical findings is necessary to determine the clinicalsignificance of this result. Results using different methodologies should not be comparedto one another as quantitative results may vary by method. TESTOSTERONE FREE AND [id number] 15:08:00* Test Item Value Reference Range Comments TESTOSTERONE TOTAL (test code=TESTTOT) 19 ng/dL 264-916 Adult male reference interval is based on a population ofhealthy nonobese males (BMI <30) between 19 and 39 yearsold. Dagmar, et.al. JCEM 2017,102;5554-1047. PMID:64655112. TESTOSTERONE (FREE) (test code=TESTF) 0.5 pg/mL 6.6-18.1 Performed At: [facility] [address] [id number] Goins MD Ph:[phone] At: [facility] [address] [id number] Fry MD Ph:[phone] VITAMIN [id number] 15:08:00* Test Item Value Reference Range Comments VITAMIN A (test code=LIZA) 50.0 ug/dL 22.0-69.5 Reference intervals for vitamin A determined from [facility]. Individuals with vitamin A less than 20ug/dL are considered vitamin A deficient and those withserum concentrations less than 10 ug/dL are consideredseverely deficient.This test was developed and its performance characteristicsdetermined by [facility]. It has not been cleared orapproved by the Food and Drug Administration.Performed At: [facility] [id number] Fry MD Ph:[phone] - CT CHEST W/O [id number] 14:00:00 Name: KELSEY JENNINGS [facility] : 1950 Age/S: 69 / M [address] [place] [address] Unit #: [id number] Loc: [place] [address] Phys: Julee Cobos MD Acct: [id number] Dis Date: Status: ADM IN PHONE #: [phone] Exam Date: 02/01/2019 1312 FAX #: [phone] Reason: Respiratory Failure EXAMS: CPT CODE: [id number] CT CHEST W/O CONTRAST [address]199 CT SCAN OF THE CHEST WITHOUT CONTRAST: HISTORY: Respiratory failure. COMPARISON EXAMS: Multiple recent chest x- rays dating back to 01/28/2019. No prior chest CT scans for comparison.. TECHNIQUE: Axial images were obtained of the chest from the lung apices to the lung bases without contrast material. 2-D sagittal and coronal reconstructions were generated. DOSE: CT imaging performed at this location utilizes radiation dose optimization technique which includes one or more of the followin) Automated exposure control; 2) Adjustment of the mA and/or kV according to patient's size; 3) Use of iterative reconstruction techniques. DLP (mGy-cm): 598 FINDINGS: Lung windows show no dominant consolidations, effusions or evidence of pneumothorax. Some minimal subpleural infiltrate is identified bilaterally. Densely calcified granuloma is noted in the right upper lobe. The central airways are patent. Endotracheal tube tip is in good position above the agustín. Mediastinal windows show no dominant hilar or mediastinal masses. Coronary artery ca lcifications are present. No pericardial fluid. Gastric tube is projecte d in the gastric lumen. Imaging into the upper abdomen shows marke dly diminished density throughout the liver. SKELETAL: Sever e degenerative disc disease identified in the lower thoracic spine. No bustamante spicious blastic or lytic skeletal lesions noted. IMPRESSI ON: 1. Minimal regions of nonspecific, subpleural infiltrate. 2 . Evidence of previous granulomatous infection with calcifications in t he right upper lobe and middle mediastinal lymph nodes. 3. Coronary art santos calcifications. 4. Hepatic steatosis. 5. Moderate bilatera l gynecomastia. 6. Otherwise unremarkable noncontrast exam. PAGE 1 Signed Report (CONTINUED) Name: KELSEY JENNINGS [facility] : 1950 Age/S: 69 / M [address] [place] [address] Blvd Unit #: [id number] Loc: [place] [address] Phys: Franklin Cobos MD Acct: [id number] Dis Date: Status: ADM IN PHONE #: Exam Date: 02/01/2019 1312 FAX #: Reason: Respiratory Failure EXAMS: CPT CODE: [id number] CT CHEST W/O CO NTRAST 90690 <Continued> SL:01 at 1400 Reported and signed by: Cory Nuñez M.D. CC: August Carpio MD; Julee Cobos MD Technologist:RT Stanton(R) CTDI: DLP: Trnscb Date/Time: 02/01/2019 (1400) Marcial Orig Print D/T: S: 02/01/2019 (2483) CTDI: DLP: PAGE 2 Signed Report LIPID PROFILE (CORONARY RISK)2019-02-01 06:32:00* Test Item Value Reference Range Comments TRIGLYCERIDES (test code=TRIG) 183 mg/dL 40-150 CHOLESTEROL (test code=CHOL) 229 mg/dL <200 CHOLESTEROL/HDL RATIO (test code=CHOLHDL) 4.77 RATIO 3.43-4.97 RISK ASSOCIATED WITH CHOL/HDL RATIOS: RISK MALE FEMALE1/2 AVERAGE 3.43 3.27AVERAGE 4.97 4.442X AVERAGE 9.55 7.053X AVERAGE 23.39 11.04 NOTE THAT THE REFERENCE VALUE IS RELATEDTO RISK LEVELS RECOMMENDED BY THE NATL.HEART, LUNG, AND BLOOD INST. HDL CHOLESTEROL (test code=HDL) 48.0 mg/dL 32-72 LIPOPROTEIN LDL (test code=LDL) 149 mg/dL 0-100 <100 [id number] NEAR OPTIMAL/ABOVE [id number] [id number] HIGH>GT=857 VERY HIGH*Guidelines provided by the National Cholesterol EducationProgram Adult Treatment Panel III URIC [id number] 06:32:00* Test Item Value Reference Range Comments URIC ACID (test code=URIC) 13.8 mg/dL 2.6-7.2 [id number] 06:32:00* Test Item Value Reference Range Comments LIPASE (test code=LIP) 364 IUnit/L 73-393 [id number] 06:32:00* Test Item Value Reference Range Comments MAGNESIUM (test code=MAG) 2.10 mg/dL 1.8-2.4 VITAMIN [id number] 06:32:00* Test Item Value Reference Range Comments VITAMIN B12 (test code=VITB12) 1488 pg/mL 193-986 THYROID STIMULATING [id number] 06:32:00* Test Item Value Reference Range Comments THYROID STIMULATING HORMONE (test code=TSH) 4.59 0.42-5.47 Results in riaz-International Units/mL [id number] 06:32:00* Test Item Value Reference Range Comments TROPONIN-I (test code=TROPI) 0.020 ng/mL 0.000-0.045 Negative: <=0.045 Positive: >=0.046 Correlation with serial results, other cardiac markers andclinical findings is necessary to determine the clinicalsignificance of this result. Results using different methodologies should not be comparedto one another as quantitative results may vary by method. TESTOSTERONE FREE AND [id number] 06:32:00* Test Item Value Reference Range Comments TESTOSTERONE TOTAL (test code=TESTTOT) 19 ng/dL 264-916 Adult male reference interval is based on a population ofhealthy nonobese males (BMI <30) between 19 and 39 yearsold. kenyatta Leavitt.jose luis. JCEM 2017,102;7667-6878. PMID:91864349. TESTOSTERONE (FREE) (test code=TESTF) 0.5 pg/mL 6.6-18.1 Performed At: [facility] [address] [id number] Kyle L MD Ph:[phone] At: [facility] [address] [id number] Sanjai MD Ph:[phone] VITAMIN [id number] 06:32:00* Test Item Value Reference Range Comments VITAMIN A (test code=LIZA) BASIC METABOLIC [id number] 06:20:00* Test Item Value Reference Range Comments SODIUM (test code=NA) 141 mEq/L 134-147 POTASSIUM (test code=K) 4.5 mEq/L 3.4-5.0 CHLORIDE (test code=CL) 102 mEq/L 100-108 CARBON DIOXIDE (test code=CO2) 33 mEq/L 21-33 ANION GAP (test code=GAP) 11 0-20 GLUCOSE (test code=GLU) 144 mg/dL 70-110 BLOOD UREA NITROGEN (test code=BUN) 27 mg/dL 7-18 GLOMERULAR FILTRATION RATE (test code=GFR) 50.5 80-90 Units of measure=ml/min/1.73 m2 CREATININE (test code=CREAT) 1.4 mg/dL 0.6-1.3 CALCIUM (test code=CA) 8.9 mg/dL 8.0-10.5 CBC W/AUTO [id number] 05:46:00* Test Item Value Reference Range Comments WHITE BLOOD CELL (test code=WBC) 5.30 x10 3/uL 4.5-11.0 RED BLOOD CELL (test code=RBC) 4.18 x10 6/uL 4.00-5.60 HEMOGLOBIN (test code=HGB) 13.9 g/dL 12.5-16.9 HEMATOCRIT (test code=HCT) 45.3 % 37.5-50.7 MEAN CELL VOLUME (test code=MCV) 108.4 fL 81.0-99.0 MEAN CELL HGB (test code=MCH) 33.3 pg 27.0-33.0 MEAN CELL HGB CONCETRATION (test code=MCHC) 30.7 g/dL 33.0-37.0 RED CELL DISTRIBUTION WIDTH CV (test code=RDW) 18.5 % 11.5-14.5 RED CELL DISTRIBUTION WIDTH SD (test code=RDW-SD) 73.1 fL 37.0-54.0 PLATELET COUNT (test code=PLT) 76 x10 3/uL 150-400 MEAN PLATELET VOLUME (test code=MPV) 12.7 fL 7.0-9.0 NEUTROPHIL % (test code=NT%) 79.6 % 56.0-77.0 IMMATURE GRANULOCYTE % (test code=IG%) 1.3 % 0.0-2.0 LYMPHOCYTE % (test code=LY%) 11.5 % 14.0-32.0 MONOCYTE % (test code=MO%) 7.4 % 4.8-9.0 EOSINOPHIL % (test code=EO%) 0.0 % 0.3-3.7 BASOPHIL % (test code=BA%) 0.2 % 0.0-2.0 NUCLEATED RBC % (test code=NRBC%) 0.4 % 0-0 NEUTROPHIL # (test code=NT#) 4.22 x10 3/uL 2.0-7.6 IMMATURE GRANULOCYTE # (test code=IG#) 0.07 x10 3/uL 0.00-0.03 LYMPHOCYTE # (test code=LY#) 0.61 x10 3/uL 1.0-3.8 MONOCYTE # (test code=MO#) 0.39 x10 3/uL 0.1-0.8 EOSINOPHIL # (test code=EO#) 0.00 x10 3/uL 0.0-0.2 BASOPHIL # (test code=BA#) 0.01 x10 3/uL 0.0-0.2 NUCLEATED RBC # (test code=NRBC#) 0.02 x10 3/uL 0.0-0.1 MANUAL DIFF REQUIRED (test code=MDIFF) NO ARTERIAL BLOOD [id number] 22:46:00* Test Item Value Reference Range Comments ARTERIAL BLOOD GAS PH (test code=PHA) 7.301 7.35-7.45 ARTERIAL BLOOD GAS PCO2 (test code=PCO2A) 66.9 mmHg 35-45 ARTERIAL BLOOD GAS PO2 (test code=PO2A) 330 mmHg 80-100 BICARBONATE TOTAL HCO3 (test code=HCO3) 33.1 mmol/L 22.0-26.0 BASE EXCESS (test code=TEJAL) 7.0 mmol/L -4-4 ABG O2 SATURATION (test code=SATA) 100 % 90-100 FIO2 (test code=FIO2A) 100 % ABG DELIVERY (test code=JOHANNE) Vent ABG VENT MODE (test code=MODEA) AC v con ABG VENT RESP RATE (test code=RRA) 16 /MIN ABG TIDAL VOLUME (test code=TVA) 500 ml ABG PEEP (test code=PEEPA) 5 cmH2O Performed by certified control panel operator at [facility] ABG TEMPERATURE (test code=TEMPA) 98.5 F ABG SITE (test code=SITEA) R Rad PREDICTED AA GRADIENT (test code=AP) 164 PREDICTED PO2 (test code=OP) 468 a/A RATIO (test code=RATIO) 0.52 TCO2 ARTERIAL (test code=TCO2A) 35 A-A GRADIENT (test code=AAGRADE) 303 - XR CHEST 1 [id number] 22:18:00 FAX: August Clifford MD [phone] [place]: St: ADM FAX: Eva Hastings NP [phone] Name: KELSEY JENNINGS [facility] [place] : 1950 Age/S: 69/M [address] [place] [address] Bl Unit #: [id number] Loc: [facility] [place] [address] Phys: Eva Atkinson NP Acct: [id number] Dis Date: Status: ADM IN PHONE #: [phone] Exam Date: 01/31/2019 2200 FAX #: [phone] Reason: OETT and NGT placement EXAMS: CPT CODE: [id number] XR CHEST 1 V 80246 Clinical Indication: OETT and NGT placement Comparison: January 30, 2019 FINDINGS: The frontal chest radiograph shows normal lung volumes. No interstitial or airspace opacities are seen. No pleural effusions are present. No pneumothorax is seen. The heart is enlarged. The trachea is midline. A left-sided AICD is present. Tip of the endotracheal tube is 4.0 cm above the agustín. The tip of the nasogastric tube is in the body of the stomach. There are no clinically significant osseous abnormalities noted. IMPRESSION: 1. No chest radiographic evidence of acute cardiopulmonary disease. 2. Stable cardiomegaly. 3. Lines and tubes as described above. SL: [id number] at 2218 Reported and signed by: Willie Kirkpatrick M.D. CC: August Carpio MD; vEa Atkinson NP Technologist: LUISA Mireles RT(R) Trnscrd Date/Time/By: 01/31/2019 (2217) : By: [email or web address] Orig Print D/T: S: 01/31/2019 (6387) PAGE 1 Signed Report HEPATITIS C BY [id number] 17:07:00* Test Item Value Reference Range Comments HEPATITIS C RNA PCR MIGUELINA (test code=HCVRNAPCRQ) HCV Not Detected IU/mL () TEST INFORMATION (test code=HCVRNAPCRQI) () The quantitative range of this assay is 15 IU/mL to 100million IU/mL.Performed At: [address] [id number] Fry MD Ph:[phone] PROCALCITONIN (PCT)2019-01-31 14:11:00* Test Item Value Reference Range Comments PROCALCITONIN (PCT) (test code=PROCAL) 0.16 ng/mL 0.00-0.05 PROCALCITONIN (PCT) NORMAL RANGE (ADULT): <0.05 NG/ML. * a concentration <0.5 ng/mL represents a low risk of severe sepsis and/or septic shock.* a concentration >2 ng/mL represents a high risk of severe sepsis and/or septic shock.Nevertheless, concentrations <0.5 ng/mL do not exclude aninfection, on account of localized infections (withoutsystemic signs) which can be associated with such lowconcentrations, or a systemic infection in its initialstages (< 6 hours). Furthermore, increased procalcitonincan occur without infection. PCT concentrations between 0.5and 2.0 ng/mL should be interpreted taking into account thepatient's history. It is recommended to retest PCT within6-24 hours if any concentrations <2 ng/mL are obtained. CBC W/AUTO [id number] 11:59:00* Test Item Value Reference Range Comments WHITE BLOOD CELL (test code=WBC) 4.47 x10 3/uL 4.5-11.0 RED BLOOD CELL (test code=RBC) 4.04 x10 6/uL 4.00-5.60 HEMOGLOBIN (test code=HGB) 13.4 g/dL 12.5-16.9 HEMATOCRIT (test code=HCT) 43.3 % 37.5-50.7 MEAN CELL VOLUME (test code=MCV) 107.2 fL 81.0-99.0 MEAN CELL HGB (test code=MCH) 33.2 pg 27.0-33.0 MEAN CELL HGB CONCETRATION (test code=MCHC) 30.9 g/dL 33.0-37.0 RED CELL DISTRIBUTION WIDTH CV (test code=RDW) 18.5 % 11.5-14.5 RED CELL DISTRIBUTION WIDTH SD (test code=RDW-SD) 72.1 fL 37.0-54.0 PLATELET COUNT (test code=PLT) 72 x10 3/uL 150-400 MEAN PLATELET VOLUME (test code=MPV) 12.5 fL 7.0-9.0 NEUTROPHIL % (test code=NT%) 85.3 % 56.0-77.0 IMMATURE GRANULOCYTE % (test code=IG%) 0.4 % 0.0-2.0 LYMPHOCYTE % (test code=LY%) 8.5 % 14.0-32.0 MONOCYTE % (test code=MO%) 5.8 % 4.8-9.0 EOSINOPHIL % (test code=EO%) 0.0 % 0.3-3.7 BASOPHIL % (test code=BA%) 0.0 % 0.0-2.0 NUCLEATED RBC % (test code=NRBC%) 0.0 % 0-0 NEUTROPHIL # (test code=NT#) 3.81 x10 3/uL 2.0-7.6 IMMATURE GRANULOCYTE # (test code=IG#) 0.02 x10 3/uL 0.00-0.03 LYMPHOCYTE # (test code=LY#) 0.38 x10 3/uL 1.0-3.8 MONOCYTE # (test code=MO#) 0.26 x10 3/uL 0.1-0.8 EOSINOPHIL # (test code=EO#) 0.00 x10 3/uL 0.0-0.2 BASOPHIL # (test code=BA#) 0.00 x10 3/uL 0.0-0.2 NUCLEATED RBC # (test code=NRBC#) 0.00 x10 3/uL 0.0-0.1 MANUAL DIFF REQUIRED (test code=MDIFF) NO RBC [id number] 11:59:00* Test Item Value Reference Range Comments ANISOCYTOSIS (test code=ANISO) 2+ MACROCYTOSIS (test code=MACR) 2+ PLT [id number] 11:59:00* Test Item Value Reference Range Comments PLATELET ESTIMATE (test code=PLTEST) 68-85 THOUSAND ADEQUATE PLATELET MORPHOLOGY (test code=PLTMORPH) NORMAL B-TYPE NATRIURETIC [id number] 10:52:00* Test Item Value Reference Range Comments B-TYPE NATRIURETIC PEPTIDE (test code=BNP) 233.6 PG/ML 0-100 COMPREHENSIVE METABOLIC [id number] 10:25:00* Test Item Value Reference Range Comments SODIUM (test code=NA) 141 mEq/L 134-147 POTASSIUM (test code=K) 4.2 mEq/L 3.4-5.0 CHLORIDE (test code=CL) 100 mEq/L 100-108 CARBON DIOXIDE (test code=CO2) 37 mEq/L 21-33 ANION GAP (test code=GAP) 8 0-20 GLUCOSE (test code=GLU) 131 mg/dL 70-110 BLOOD UREA NITROGEN (test code=BUN) 25 mg/dL 7-18 GLOMERULAR FILTRATION RATE (test code=GFR) 55.1 80-90 Units of measure=ml/min/1.73 m2 CREATININE (test code=CREAT) 1.3 mg/dL 0.6-1.3 TOTAL PROTEIN (test code=PROT) 6.4 g/dL 6.4-8.2 ALBUMIN (test code=ALB) 3.00 g/dL 3.4-5.0 CALCIUM (test code=CA) 8.8 mg/dL 8.0-10.5 BILIRUBIN TOTAL (test code=BILT) 0.90 mg/dL 0.0-1.0 SGOT/AST (test code=AST) 169 IUnit/L 15-37 SGPT/ALT (test code=ALT) 183 IUnit/L 15-65 ALKALINE PHOSPHATASE TOTAL (test code=ALKP) 106 IUnit/L 20-125 [id number] 10:25:00* Test Item Value Reference Range Comments PHOSPHOROUS (test code=PHOS) 2.6 mg/dL 2.5-4.9 [id number] 10:25:00* Test Item Value Reference Range Comments LIPASE (test code=LIP) 297 IUnit/L 73-393 [id number] 10:25:00* Test Item Value Reference Range Comments MAGNESIUM (test code=MAG) 2.00 mg/dL 1.8-2.4 [id number] 10:25:00* Test Item Value Reference Range Comments TROPONIN-I (test code=TROPI) 0.028 ng/mL 0.000-0.045 Negative: <=0.045 Positive: >=0.046 Correlation with serial results, other cardiac markers andclinical findings is necessary to determine the clinicalsignificance of this result. Results using different methodologies should not be comparedto one another as quantitative results may vary by method. CALCIUM [id number] 10:25:00* Test Item Value Reference Range Comments CALCIUM IONIZED (test code=DENNIS) 1.13 MMOL/L 1.12-1.32 PROTHROMBIN [id number] 10:08:00* Test Item Value Reference Range Comments PROTHROMBIN TIME PATIENT (test code=PTP) 11.2 SECONDS 9.3-12.9 INTERNATIONAL NORMAL RATIO (test code=INR) 1.0 0.8-1.2 TARGET INR BY INDICATION Indication INR1. Prophylaxis of venous thrombosis 2.0 - 3.0 (orthopedic surgery), Prophylaxis of venous thrombosis (other than high-risk surgery), Treatment of Deep Vein Thrombosis/Pulmonary Embolism, Prevention of systemic embolism - Tissue heart valves, Acute Myocardial Infarction (to prevent systemic embolism), Valvular heart disease, Atrial Fibrillation, Bileaflet mechanical valve in aortic position.2. Mechanical prosthetic valves (high risk), 2.5 - 3.5 Presence of Lupus Anticoagulant or Antiphospholipid Antibodies, Prevention of systemic embolism - Acute Myocardial Infarction (to prevent recurrent infarct). THROMBOPLASTIN TIME [id number] 10:08:00* Test Item Value Reference Range Comments THROMBOPLASTIN TIME PARTIAL (test code=PTT) 32.7 Seconds 25.0-39.5 Therapeutic Range: 61.8-83.8 Sec Effective 12/09/2013 [id number]%2019-01-31 10:06:00* Test Item Value Reference Range Comments HGBA1C% (test code=HGBA1C%) 5.9 %A1C 4.8-6.0 COMPREHENSIVE METABOLIC [id number] 10:03:00* Test Item Value Reference Range Comments SODIUM (test code=NA) 141 mEq/L 134-147 POTASSIUM (test code=K) 4.2 mEq/L 3.4-5.0 CHLORIDE (test code=CL) 100 mEq/L 100-108 CARBON DIOXIDE (test code=CO2) 37 mEq/L 21-33 ANION GAP (test code=GAP) 8 0-20 GLUCOSE (test code=GLU) 131 mg/dL 70-110 BLOOD UREA NITROGEN (test code=BUN) 25 mg/dL 7-18 GLOMERULAR FILTRATION RATE (test code=GFR) 55.1 80-90 Units of measure=ml/min/1.73 m2 CREATININE (test code=CREAT) 1.3 mg/dL 0.6-1.3 TOTAL PROTEIN (test code=PROT) 6.4 g/dL 6.4-8.2 ALBUMIN (test code=ALB) 3.00 g/dL 3.4-5.0 CALCIUM (test code=CA) 8.8 mg/dL 8.0-10.5 BILIRUBIN TOTAL (test code=BILT) 0.90 mg/dL 0.0-1.0 SGOT/AST (test code=AST) 169 IUnit/L 15-37 SGPT/ALT (test code=ALT) 183 IUnit/L 15-65 ALKALINE PHOSPHATASE TOTAL (test code=ALKP) 106 IUnit/L 20-125 [id number] 10:03:00* Test Item Value Reference Range Comments PHOSPHOROUS (test code=PHOS) 2.6 mg/dL 2.5-4.9 [id number] 10:03:00* Test Item Value Reference Range Comments LIPASE (test code=LIP) 297 IUnit/L 73-393 [id number] 10:03:00* Test Item Value Reference Range Comments MAGNESIUM (test code=MAG) 2.00 mg/dL 1.8-2.4 [id number] 10:03:00* Test Item Value Reference Range Comments TROPONIN-I (test code=TROPI) 0.028 ng/mL 0.000-0.045 Negative: <=0.045 Positive: >=0.046 Correlation with serial results, other cardiac markers andclinical findings is necessary to determine the clinicalsignificance of this result. Results using different methodologies should not be comparedto one another as quantitative results may vary by method. CALCIUM [id number] 10:03:00* Test Item Value Reference Range Comments CALCIUM IONIZED (test code=DENNIS) MMOL/L 1.12-1.32 LACTIC [id number] 09:57:00* Test Item Value Reference Range Comments LACTIC ACID (test code=LACT) 1.9 mmol/L 0.4-1.9 CBC W/AUTO [id number] 09:51:00* Test Item Value Reference Range Comments WHITE BLOOD CELL (test code=WBC) 4.47 x10 3/uL 4.5-11.0 RED BLOOD CELL (test code=RBC) 4.04 x10 6/uL 4.00-5.60 HEMOGLOBIN (test code=HGB) 13.4 g/dL 12.5-16.9 HEMATOCRIT (test code=HCT) 43.3 % 37.5-50.7 MEAN CELL VOLUME (test code=MCV) 107.2 fL 81.0-99.0 MEAN CELL HGB (test code=MCH) 33.2 pg 27.0-33.0 MEAN CELL HGB CONCETRATION (test code=MCHC) 30.9 g/dL 33.0-37.0 RED CELL DISTRIBUTION WIDTH CV (test code=RDW) 18.5 % 11.5-14.5 RED CELL DISTRIBUTION WIDTH SD (test code=RDW-SD) 72.1 fL 37.0-54.0 PLATELET COUNT (test code=PLT) 72 x10 3/uL 150-400 MEAN PLATELET VOLUME (test code=MPV) 12.5 fL 7.0-9.0 NEUTROPHIL % (test code=NT%) 85.3 % 56.0-77.0 IMMATURE GRANULOCYTE % (test code=IG%) 0.4 % 0.0-2.0 LYMPHOCYTE % (test code=LY%) 8.5 % 14.0-32.0 MONOCYTE % (test code=MO%) 5.8 % 4.8-9.0 EOSINOPHIL % (test code=EO%) 0.0 % 0.3-3.7 BASOPHIL % (test code=BA%) 0.0 % 0.0-2.0 NUCLEATED RBC % (test code=NRBC%) 0.0 % 0-0 NEUTROPHIL # (test code=NT#) 3.81 x10 3/uL 2.0-7.6 IMMATURE GRANULOCYTE # (test code=IG#) 0.02 x10 3/uL 0.00-0.03 LYMPHOCYTE # (test code=LY#) 0.38 x10 3/uL 1.0-3.8 MONOCYTE # (test code=MO#) 0.26 x10 3/uL 0.1-0.8 EOSINOPHIL # (test code=EO#) 0.00 x10 3/uL 0.0-0.2 BASOPHIL # (test code=BA#) 0.00 x10 3/uL 0.0-0.2 NUCLEATED RBC # (test code=NRBC#) 0.00 x10 3/uL 0.0-0.1 MANUAL DIFF REQUIRED (test code=MDIFF) NO RBC [id number] 09:51:00* Test Item Value Reference Range Comments ANISOCYTOSIS (test code=ANISO) PLT [id number] 09:51:00* Test Item Value Reference Range Comments PLATELET ESTIMATE (test code=PLTEST) THOUSAND ADEQUATE CBC W/AUTO [id number] 09:45:00* Test Item Value Reference Range Comments WHITE BLOOD CELL (test code=WBC) 4.47 x10 3/uL 4.5-11.0 RED BLOOD CELL (test code=RBC) 4.04 x10 6/uL 4.00-5.60 HEMOGLOBIN (test code=HGB) 13.4 g/dL 12.5-16.9 HEMATOCRIT (test code=HCT) 43.3 % 37.5-50.7 MEAN CELL VOLUME (test code=MCV) 107.2 fL 81.0-99.0 MEAN CELL HGB (test code=MCH) 33.2 pg 27.0-33.0 MEAN CELL HGB CONCETRATION (test code=MCHC) 30.9 g/dL 33.0-37.0 RED CELL DISTRIBUTION WIDTH CV (test code=RDW) 18.5 % 11.5-14.5 RED CELL DISTRIBUTION WIDTH SD (test code=RDW-SD) 72.1 fL 37.0-54.0 PLATELET COUNT (test code=PLT) 72 x10 3/uL 150-400 MEAN PLATELET VOLUME (test code=MPV) 12.5 fL 7.0-9.0 NEUTROPHIL % (test code=NT%) 85.3 % 56.0-77.0 IMMATURE GRANULOCYTE % (test code=IG%) 0.4 % 0.0-2.0 LYMPHOCYTE % (test code=LY%) 8.5 % 14.0-32.0 MONOCYTE % (test code=MO%) 5.8 % 4.8-9.0 EOSINOPHIL % (test code=EO%) 0.0 % 0.3-3.7 BASOPHIL % (test code=BA%) 0.0 % 0.0-2.0 NUCLEATED RBC % (test code=NRBC%) 0.0 % 0-0 NEUTROPHIL # (test code=NT#) 3.81 x10 3/uL 2.0-7.6 IMMATURE GRANULOCYTE # (test code=IG#) 0.02 x10 3/uL 0.00-0.03 LYMPHOCYTE # (test code=LY#) 0.38 x10 3/uL 1.0-3.8 MONOCYTE # (test code=MO#) 0.26 x10 3/uL 0.1-0.8 EOSINOPHIL # (test code=EO#) 0.00 x10 3/uL 0.0-0.2 BASOPHIL # (test code=BA#) 0.00 x10 3/uL 0.0-0.2 NUCLEATED RBC # (test code=NRBC#) 0.00 x10 3/uL 0.0-0.1 MANUAL DIFF REQUIRED (test code=MDIFF) NO RBC [id number] 09:45:00* Test Item Value Reference Range Comments ANISOCYTOSIS (test code=ANISO) PLT [id number] 09:45:00* Test Item Value Reference Range Comments PLATELET ESTIMATE (test code=PLTEST) THOUSAND ADEQUATE CBC W/AUTO [id number] 09:39:00* Test Item Value Reference Range Comments WHITE BLOOD CELL (test code=WBC) 4.47 x10 3/uL 4.5-11.0 RED BLOOD CELL (test code=RBC) 4.04 x10 6/uL 4.00-5.60 HEMOGLOBIN (test code=HGB) 13.4 g/dL 12.5-16.9 HEMATOCRIT (test code=HCT) 43.3 % 37.5-50.7 MEAN CELL VOLUME (test code=MCV) 107.2 fL 81.0-99.0 MEAN CELL HGB (test code=MCH) 33.2 pg 27.0-33.0 MEAN CELL HGB CONCETRATION (test code=MCHC) 30.9 g/dL 33.0-37.0 RED CELL DISTRIBUTION WIDTH CV (test code=RDW) 18.5 % 11.5-14.5 RED CELL DISTRIBUTION WIDTH SD (test code=RDW-SD) 72.1 fL 37.0-54.0 PLATELET COUNT (test code=PLT) 72 x10 3/uL 150-400 MEAN PLATELET VOLUME (test code=MPV) 12.5 fL 7.0-9.0 NEUTROPHIL % (test code=NT%) 85.3 % 56.0-77.0 IMMATURE GRANULOCYTE % (test code=IG%) 0.4 % 0.0-2.0 LYMPHOCYTE % (test code=LY%) 8.5 % 14.0-32.0 MONOCYTE % (test code=MO%) 5.8 % 4.8-9.0 EOSINOPHIL % (test code=EO%) 0.0 % 0.3-3.7 BASOPHIL % (test code=BA%) 0.0 % 0.0-2.0 NUCLEATED RBC % (test code=NRBC%) 0.0 % 0-0 NEUTROPHIL # (test code=NT#) 3.81 x10 3/uL 2.0-7.6 IMMATURE GRANULOCYTE # (test code=IG#) 0.02 x10 3/uL 0.00-0.03 LYMPHOCYTE # (test code=LY#) 0.38 x10 3/uL 1.0-3.8 MONOCYTE # (test code=MO#) 0.26 x10 3/uL 0.1-0.8 EOSINOPHIL # (test code=EO#) 0.00 x10 3/uL 0.0-0.2 BASOPHIL # (test code=BA#) 0.00 x10 3/uL 0.0-0.2 NUCLEATED RBC # (test code=NRBC#) 0.00 x10 3/uL 0.0-0.1 MANUAL DIFF REQUIRED (test code=MDIFF) NO RBC [id number] 09:39:00* Test Item Value Reference Range Comments ANISOCYTOSIS (test code=ANISO) BASIC METABOLIC [id number] 08:03:00* Test Item Value Reference Range Comments SODIUM (test code=NA) 141 mEq/L 134-147 POTASSIUM (test code=K) 4.3 mEq/L 3.4-5.0 CHLORIDE (test code=CL) 101 mEq/L 100-108 CARBON DIOXIDE (test code=CO2) 37 mEq/L 21-33 ANION GAP (test code=GAP) 7 0-20 GLUCOSE (test code=GLU) 144 mg/dL 70-110 BLOOD UREA NITROGEN (test code=BUN) 25 mg/dL 7-18 GLOMERULAR FILTRATION RATE (test code=GFR) 55.1 80-90 Units of measure=ml/min/1.73 m2 CREATININE (test code=CREAT) 1.3 mg/dL 0.6-1.3 CALCIUM (test code=CA) 8.8 mg/dL 8.0-10.5 [id number] 08:03:00* Test Item Value Reference Range Comments MAGNESIUM (test code=MAG) 2.10 mg/dL 1.8-2.4 CBC W/AUTO [id number] 05:54:00* Test Item Value Reference Range Comments WHITE BLOOD CELL (test code=WBC) 4.56 x10 3/uL 4.5-11.0 RED BLOOD CELL (test code=RBC) 3.97 x10 6/uL 4.00-5.60 HEMOGLOBIN (test code=HGB) 13.2 g/dL 12.5-16.9 HEMATOCRIT (test code=HCT) 42.4 % 37.5-50.7 MEAN CELL VOLUME (test code=MCV) 106.8 fL 81.0-99.0 MEAN CELL HGB (test code=MCH) 33.2 pg 27.0-33.0 MEAN CELL HGB CONCETRATION (test code=MCHC) 31.1 g/dL 33.0-37.0 RED CELL DISTRIBUTION WIDTH CV (test code=RDW) 19.6 % 11.5-14.5 RED CELL DISTRIBUTION WIDTH SD (test code=RDW-SD) 72.7 fL 37.0-54.0 PLATELET COUNT (test code=PLT) 80 x10 3/uL 150-400 IMMATURE PLATELET FRACTION (test code=IPF) 13.0 % 0.9-11.2 NEUTROPHIL % (test code=NT%) 82.9 % 56.0-77.0 IMMATURE GRANULOCYTE % (test code=IG%) 1.1 % 0.0-2.0 LYMPHOCYTE % (test code=LY%) 9.2 % 14.0-32.0 MONOCYTE % (test code=MO%) 6.8 % 4.8-9.0 EOSINOPHIL % (test code=EO%) 0.0 % 0.3-3.7 BASOPHIL % (test code=BA%) 0.0 % 0.0-2.0 NUCLEATED RBC % (test code=NRBC%) 0.0 % 0-0 NEUTROPHIL # (test code=NT#) 3.78 x10 3/uL 2.0-7.6 IMMATURE GRANULOCYTE # (test code=IG#) 0.05 x10 3/uL 0.00-0.03 LYMPHOCYTE # (test code=LY#) 0.42 x10 3/uL 1.0-3.8 MONOCYTE # (test code=MO#) 0.31 x10 3/uL 0.1-0.8 EOSINOPHIL # (test code=EO#) 0.00 x10 3/uL 0.0-0.2 BASOPHIL # (test code=BA#) 0.00 x10 3/uL 0.0-0.2 NUCLEATED RBC # (test code=NRBC#) 0.00 x10 3/uL 0.0-0.1 MANUAL DIFF REQUIRED (test code=MDIFF) NO LACTIC ACID 2ND [id number] 00:54:00* Test Item Value Reference Range Comments LACTIC ACID 2ND REPEAT (test code=LACT2) 3.0 mmol/L 0.4-1.9 SPOKE WITH RN SHE WILL DRAW REPEAT LACT. LACTIC ACID [id number] 21:27:00* Test Item Value Reference Range Comments LACTIC ACID REPEAT (test code=LACTR) 2.2 mmol/l 0.4-1.9 - XR CHEST 1 [id number] 18:24:00 FAX: August Clifford MD [phone] [place]: St: ADM FAX: Julee Grigsby MD [phone] Name: KELSEY JENNINGS [facility] : 1950 Age/S: 69/M [address] [place] [address] Unit #: [id number] Loc: [address] [place] [id number] Phys: Julee Cobos MD Acct: [id number] Dis Date: Status: ADM IN PHONE #: [phone] Exam Date: 01/30/2019 180 FAX #: [phone] Reason: respiratory distress EXAMS: CPT CODE: [id number] XR CHEST 1 V [id number] PROCEDURE: CHEST ONE VIEW INDICATION: Respiratory distress. COMPARISON: Portable chest 01/28/2019 FINDINGS: Left chest cardiac device with lead projecting over the expected region of the right ventricle. Cardiovascular: Normal cardiac silhouette. Atherosclerotic calcifications. Mediastinum: No mediastinal or hilar lymphadenopathy. Lungs: No focal consolidation. No parenchymal mass. Low lung volumes are present bilaterally. Pleura: No pleural effusion. No pneumothorax. Bones: No acute osseous abnormality. IMPRESSION: No acute radiographic abnormality. SL: [id number] at 1824 Reported and signed by: Everardo Ugalde M.D. CC: August Carpio MD; Julee Cobos MD Technologist: RT Rachael(R) Trnscrd Date/Time/By: 01/30/2019 (1823) : By: michael [email or web address] Orig Print D/T: S: 01/30/2019 (5299) PAGE 1 Signed Report CBC W/AUTO [id number] 18:19:00* Test Item Value Reference Range Comments WHITE BLOOD CELL (test code=WBC) 4.93 x10 3/uL 4.5-11.0 RED BLOOD CELL (test code=RBC) 4.20 x10 6/uL 4.00-5.60 HEMOGLOBIN (test code=HGB) 13.9 g/dL 12.5-16.9 HEMATOCRIT (test code=HCT) 43.5 % 37.5-50.7 MEAN CELL VOLUME (test code=MCV) 103.6 fL 81.0-99.0 MEAN CELL HGB (test code=MCH) 33.1 pg 27.0-33.0 MEAN CELL HGB CONCETRATION (test code=MCHC) 32.0 g/dL 33.0-37.0 RED CELL DISTRIBUTION WIDTH CV (test code=RDW) 18.5 % 11.5-14.5 RED CELL DISTRIBUTION WIDTH SD (test code=RDW-SD) 67.7 fL 37.0-54.0 PLATELET COUNT (test code=PLT) x10 3/uL 150-400 SEE PLT EST MEAN PLATELET VOLUME (test code=MPV) 12.6 fL 7.0-9.0 NEUTROPHIL % (test code=NT%) 82.6 % 56.0-77.0 IMMATURE GRANULOCYTE % (test code=IG%) 1.0 % 0.0-2.0 LYMPHOCYTE % (test code=LY%) 7.5 % 14.0-32.0 MONOCYTE % (test code=MO%) 8.9 % 4.8-9.0 EOSINOPHIL % (test code=EO%) 0.0 % 0.3-3.7 BASOPHIL % (test code=BA%) 0.0 % 0.0-2.0 NUCLEATED RBC % (test code=NRBC%) 0.6 % 0-0 NEUTROPHIL # (test code=NT#) 4.07 x10 3/uL 2.0-7.6 IMMATURE GRANULOCYTE # (test code=IG#) 0.05 x10 3/uL 0.00-0.03 LYMPHOCYTE # (test code=LY#) 0.37 x10 3/uL 1.0-3.8 MONOCYTE # (test code=MO#) 0.44 x10 3/uL 0.1-0.8 EOSINOPHIL # (test code=EO#) 0.00 x10 3/uL 0.0-0.2 BASOPHIL # (test code=BA#) 0.00 x10 3/uL 0.0-0.2 NUCLEATED RBC # (test code=NRBC#) 0.03 x10 3/uL 0.0-0.1 MANUAL DIFF REQUIRED (test code=MDIFF) NO PLT [id number] 18:19:00* Test Item Value Reference Range Comments PLATELET ESTIMATE (test code=PLTEST) 88-110 THOUSAND ADEQUATE PLATELET MORPHOLOGY (test code=PLTMORPH) NORMAL COMPREHENSIVE METABOLIC [id number] 18:15:00* Test Item Value Reference Range Comments SODIUM (test code=NA) 137 mEq/L 134-147 POTASSIUM (test code=K) 3.8 mEq/L 3.4-5.0 CHLORIDE (test code=CL) 95 mEq/L 100-108 CARBON DIOXIDE (test code=CO2) 38 mEq/L 21-33 ANION GAP (test code=GAP) 8 0-20 GLUCOSE (test code=GLU) 148 mg/dL 70-110 BLOOD UREA NITROGEN (test code=BUN) 23 mg/dL 7-18 GLOMERULAR FILTRATION RATE (test code=GFR) 46.7 80-90 Units of measure=ml/min/1.73 m2 CREATININE (test code=CREAT) 1.5 mg/dL 0.6-1.3 TOTAL PROTEIN (test code=PROT) 6.8 g/dL 6.4-8.2 ALBUMIN (test code=ALB) 3.30 g/dL 3.4-5.0 CALCIUM (test code=CA) 9.0 mg/dL 8.0-10.5 BILIRUBIN TOTAL (test code=BILT) 1.00 mg/dL 0.0-1.0 SGOT/AST (test code=AST) 194 IUnit/L 15-37 SGPT/ALT (test code=ALT) 184 IUnit/L 15-65 ALKALINE PHOSPHATASE TOTAL (test code=ALKP) 127 IUnit/L 20-125 HEPATIC FUNCTION [id number] 18:15:00* Test Item Value Reference Range Comments BILIRUBIN DIRECT (test code=BILD) 0.60 MG/DL 0.0-0.30 BILIRUBIN INDIRECT (test code=BILIND) 0.40 MG/DL [id number] 18:15:00* Test Item Value Reference Range Comments PHOSPHOROUS (test code=PHOS) 3.0 mg/dL 2.5-4.9 [id number] 18:15:00* Test Item Value Reference Range Comments LIPASE (test code=LIP) 530 IUnit/L 73-393 [id number] 18:15:00* Test Item Value Reference Range Comments MAGNESIUM (test code=MAG) 2.00 mg/dL 1.8-2.4 T4 [id number] 18:15:00* Test Item Value Reference Range Comments T4 FREE (test code=T4F) 0.8 ng/dL 0.77-1.61 THYROID STIMULATING [id number] 18:15:00* Test Item Value Reference Range Comments THYROID STIMULATING HORMONE (test code=TSH) 2.26 0.42-5.47 Results in riaz-International Units/mL [id number] 18:15:00* Test Item Value Reference Range Comments TROPONIN-I (test code=TROPI) 0.046 ng/mL 0.000-0.045 Negative: <=0.045 Positive: >=0.046 Correlation with serial results, other cardiac markers andclinical findings is necessary to determine the clinicalsignificance of this result. Results using different methodologies should not be comparedto one another as quantitative results may vary by method. CALCIUM [id number] 18:15:00* Test Item Value Reference Range Comments CALCIUM IONIZED (test code=DENNIS) 1.12 MMOL/L 1.12-1.32 PROTHROMBIN [id number] 18:04:00* Test Item Value Reference Range Comments PROTHROMBIN TIME PATIENT (test code=PTP) 11.6 SECONDS 9.3-12.9 INTERNATIONAL NORMAL RATIO (test code=INR) 1.0 0.8-1.2 TARGET INR BY INDICATION Indication INR1. Prophylaxis of venous thrombosis 2.0 - 3.0 (orthopedic surgery), Prophylaxis of venous thrombosis (other than high-risk surgery), Treatment of Deep Vein Thrombosis/Pulmonary Embolism, Prevention of systemic embolism - Tissue heart valves, Acute Myocardial Infarction (to prevent systemic embolism), Valvular heart disease, Atrial Fibrillation, Bileaflet mechanical valve in aortic position.2. Mechanical prosthetic valves (high risk), 2.5 - 3.5 Presence of Lupus Anticoagulant or Antiphospholipid Antibodies, Prevention of systemic embolism - Acute Myocardial Infarction (to prevent recurrent infarct). THROMBOPLASTIN TIME [id number] 18:04:00* Test Item Value Reference Range Comments THROMBOPLASTIN TIME PARTIAL (test code=PTT) 34.4 Seconds 25.0-39.5 Therapeutic Range: 61.8-83.8 Sec Effective 12/09/2013 LACTIC [id number] 18:03:00* Test Item Value Reference Range Comments LACTIC ACID (test code=LACT) 2.1 mmol/L 0.4-1.9 COMPREHENSIVE METABOLIC [id number] 17:50:00* Test Item Value Reference Range Comments SODIUM (test code=NA) mEq/L 134-147 POTASSIUM (test code=K) mEq/L 3.4-5.0 CHLORIDE (test code=CL) mEq/L 100-108 CARBON DIOXIDE (test code=CO2) mEq/L 21-33 ANION GAP (test code=GAP) 0-20 GLUCOSE (test code=GLU) mg/dL 70-110 BLOOD UREA NITROGEN (test code=BUN) mg/dL 7-18 GLOMERULAR FILTRATION RATE (test code=GFR) 80-90 CREATININE (test code=CREAT) mg/dL 0.6-1.3 TOTAL PROTEIN (test code=PROT) g/dL 6.4-8.2 ALBUMIN (test code=ALB) g/dL 3.4-5.0 CALCIUM (test code=CA) mg/dL 8.0-10.5 BILIRUBIN TOTAL (test code=BILT) mg/dL 0.0-1.0 SGOT/AST (test code=AST) IUnit/L 15-37 SGPT/ALT (test code=ALT) IUnit/L 15-65 ALKALINE PHOSPHATASE TOTAL (test code=ALKP) IUnit/L 20-125 HEPATIC FUNCTION [id number] 17:50:00* Test Item Value Reference Range Comments BILIRUBIN DIRECT (test code=BILD) MG/DL 0.0-0.30 [id number] 17:50:00* Test Item Value Reference Range Comments PHOSPHOROUS (test code=PHOS) mg/dL 2.5-4.9 [id number] 17:50:00* Test Item Value Reference Range Comments LIPASE (test code=LIP) IUnit/L 73-393 [id number] 17:50:00* Test Item Value Reference Range Comments MAGNESIUM (test code=MAG) mg/dL 1.8-2.4 T4 [id number] 17:50:00* Test Item Value Reference Range Comments T4 FREE (test code=T4F) ng/dL 0.77-1.61 THYROID STIMULATING [id number] 17:50:00* Test Item Value Reference Range Comments THYROID STIMULATING HORMONE (test code=TSH) 0.42-5.47 [id number] 17:50:00* Test Item Value Reference Range Comments TROPONIN-I (test code=TROPI) ng/mL 0.000-0.045 CALCIUM [id number] 17:50:00* Test Item Value Reference Range Comments CALCIUM IONIZED (test code=DENNIS) 1.12 MMOL/L 1.12-1.32 CBC W/AUTO [id number] 17:44:00* Test Item Value Reference Range Comments WHITE BLOOD CELL (test code=WBC) 4.93 x10 3/uL 4.5-11.0 RED BLOOD CELL (test code=RBC) 4.20 x10 6/uL 4.00-5.60 HEMOGLOBIN (test code=HGB) 13.9 g/dL 12.5-16.9 HEMATOCRIT (test code=HCT) 43.5 % 37.5-50.7 MEAN CELL VOLUME (test code=MCV) 103.6 fL 81.0-99.0 MEAN CELL HGB (test code=MCH) 33.1 pg 27.0-33.0 MEAN CELL HGB CONCETRATION (test code=MCHC) 32.0 g/dL 33.0-37.0 RED CELL DISTRIBUTION WIDTH CV (test code=RDW) 18.5 % 11.5-14.5 RED CELL DISTRIBUTION WIDTH SD (test code=RDW-SD) 67.7 fL 37.0-54.0 PLATELET COUNT (test code=PLT) x10 3/uL 150-400 SEE PLT EST MEAN PLATELET VOLUME (test code=MPV) 12.6 fL 7.0-9.0 NEUTROPHIL % (test code=NT%) 82.6 % 56.0-77.0 IMMATURE GRANULOCYTE % (test code=IG%) 1.0 % 0.0-2.0 LYMPHOCYTE % (test code=LY%) 7.5 % 14.0-32.0 MONOCYTE % (test code=MO%) 8.9 % 4.8-9.0 EOSINOPHIL % (test code=EO%) 0.0 % 0.3-3.7 BASOPHIL % (test code=BA%) 0.0 % 0.0-2.0 NUCLEATED RBC % (test code=NRBC%) 0.6 % 0-0 NEUTROPHIL # (test code=NT#) 4.07 x10 3/uL 2.0-7.6 IMMATURE GRANULOCYTE # (test code=IG#) 0.05 x10 3/uL 0.00-0.03 LYMPHOCYTE # (test code=LY#) 0.37 x10 3/uL 1.0-3.8 MONOCYTE # (test code=MO#) 0.44 x10 3/uL 0.1-0.8 EOSINOPHIL # (test code=EO#) 0.00 x10 3/uL 0.0-0.2 BASOPHIL # (test code=BA#) 0.00 x10 3/uL 0.0-0.2 NUCLEATED RBC # (test code=NRBC#) 0.03 x10 3/uL 0.0-0.1 MANUAL DIFF REQUIRED (test code=MDIFF) NO PLT [id number] 17:44:00* Test Item Value Reference Range Comments PLATELET ESTIMATE (test code=PLTEST) THOUSAND ADEQUATE CBC W/AUTO [id number] 17:44:00* Test Item Value Reference Range Comments WHITE BLOOD CELL (test code=WBC) 4.93 x10 3/uL 4.5-11.0 RED BLOOD CELL (test code=RBC) 4.20 x10 6/uL 4.00-5.60 HEMOGLOBIN (test code=HGB) 13.9 g/dL 12.5-16.9 HEMATOCRIT (test code=HCT) 43.5 % 37.5-50.7 MEAN CELL VOLUME (test code=MCV) 103.6 fL 81.0-99.0 MEAN CELL HGB (test code=MCH) 33.1 pg 27.0-33.0 MEAN CELL HGB CONCETRATION (test code=MCHC) 32.0 g/dL 33.0-37.0 RED CELL DISTRIBUTION WIDTH CV (test code=RDW) 18.5 % 11.5-14.5 RED CELL DISTRIBUTION WIDTH SD (test code=RDW-SD) 67.7 fL 37.0-54.0 PLATELET COUNT (test code=PLT) x10 3/uL 150-400 SEE PLT EST MEAN PLATELET VOLUME (test code=MPV) 12.6 fL 7.0-9.0 NEUTROPHIL % (test code=NT%) 82.6 % 56.0-77.0 IMMATURE GRANULOCYTE % (test code=IG%) 1.0 % 0.0-2.0 LYMPHOCYTE % (test code=LY%) 7.5 % 14.0-32.0 MONOCYTE % (test code=MO%) 8.9 % 4.8-9.0 EOSINOPHIL % (test code=EO%) 0.0 % 0.3-3.7 BASOPHIL % (test code=BA%) 0.0 % 0.0-2.0 NUCLEATED RBC % (test code=NRBC%) 0.6 % 0-0 NEUTROPHIL # (test code=NT#) 4.07 x10 3/uL 2.0-7.6 IMMATURE GRANULOCYTE # (test code=IG#) 0.05 x10 3/uL 0.00-0.03 LYMPHOCYTE # (test code=LY#) 0.37 x10 3/uL 1.0-3.8 MONOCYTE # (test code=MO#) 0.44 x10 3/uL 0.1-0.8 EOSINOPHIL # (test code=EO#) 0.00 x10 3/uL 0.0-0.2 BASOPHIL # (test code=BA#) 0.00 x10 3/uL 0.0-0.2 NUCLEATED RBC # (test code=NRBC#) 0.03 x10 3/uL 0.0-0.1 MANUAL DIFF REQUIRED (test code=MDIFF) NO PLT [id number] 17:44:00* Test Item Value Reference Range Comments PLATELET ESTIMATE (test code=PLTEST) THOUSAND ADEQUATE BASIC METABOLIC [id number] 13:55:00* Test Item Value Reference Range Comments SODIUM (test code=NA) 136 mEq/L 134-147 POTASSIUM (test code=K) 3.4 mEq/L 3.4-5.0 CHLORIDE (test code=CL) 93 mEq/L 100-108 CARBON DIOXIDE (test code=CO2) 40 mEq/L 21-33 ANION GAP (test code=GAP) 6 0-20 GLUCOSE (test code=GLU) 112 mg/dL 70-110 BLOOD UREA NITROGEN (test code=BUN) 26 mg/dL 7-18 GLOMERULAR FILTRATION RATE (test code=GFR) 46.7 80-90 Units of measure=ml/min/1.73 m2 CREATININE (test code=CREAT) 1.5 mg/dL 0.6-1.3 CALCIUM (test code=CA) 9.5 mg/dL 8.0-10.5 [id number] 13:55:00* Test Item Value Reference Range Comments MAGNESIUM (test code=MAG) 2.10 mg/dL 1.8-2.4 CPK-MB [id number] 13:55:00* Test Item Value Reference Range Comments CREATINE KINASE (CK) (test code=CK) 857 35-232 Result is in INTERNATIONAL UNITS/LITER CKMB (test code=CKMBT) 16.4 ng/mL 0-5.0 CUT OFF:>5 ng/mL is suggested as being consistent with AMI. RELATIVE % INDEX (test code=REL%) 1.9 % 0.0-2.5 *CK-MB INTERPRETATION* NORMAL: <5 ng/ml & <2.5% INDEX ABNORMAL: >5 ng/ml & >2.5% INDEX CARR ZONE: >5 ng/ml & <2.5% INDEX - SUGGEST CPK ISOENZYME BY ELECTROPHORESIS *PLEASE NOTE* A LOW TOTAL CK MAY CALCULATE TO A FALSELY ELEVATED INDEX. [id number] 13:55:00* Test Item Value Reference Range Comments TROPONIN-I (test code=TROPI) 0.052 ng/mL 0.000-0.045 Negative: <=0.045 Positive: >=0.046 Correlation with serial results, other cardiac markers andclinical findings is necessary to determine the clinicalsignificance of this result. Results using different methodologies should not be comparedto one another as quantitative results may vary by method. - US ABDOMEN [id number] 09:50:00 Name: KELSEY JENNINGS [facility] : 1950 Age/S: 69 / M [address] [place] [address] Blvd Unit #: [id number] Loc: [place] [address] Phys: Chavo Dennis MD Acct: [id number] Dis Date: Status: ADM IN PHONE #: [phone] Exam Date: 01/30/2019 0857 FAX #: [phone] Reason: hepatitis c virus and thrombocytopenia EXAMS: CPT CODE: [id number] US ABDOMEN COMPLETE 74072 US of the abdomen performed January 30, 2019 . CLINICAL HISTORY: Hepatitis C . COMPARISON: December 06, 2016 . DISCUSSION: Real time samaniego scale sonography was performed of the abdomen. The liver is enlarged measuring approximately 19.7 cm in length. There is diffuse increased echogenicity compatible with fatty infiltration. This limits the evaluation. A few nonspecific cysts are again seen. There is no evidence of intra or extra hepatic ductal dilatation. Common bile duct measures 6 mm. No sonographic evidence of cholelithiasis. There is no gallbladder wall thickening or pericholecystic fluid. The sonographic Wagner's sign is reported as negative. The spleen is normal in size and echogenicity, measuring 10.6 cm . The pancreas is poorly seen due to overlying bowel gas. The visualized portion of the IVC and aorta are within normal limits. The kidneys are sonographically normal in appearance. The right measures 12.2 cm in length and the left measures 11.3 cm. There is no sonographic evidence of hydronephrosis, mass or calculi. IMPRESSION: Diffuse fatty infiltration of the liver with a few small simple appearing cysts and hepatomegaly. at 0950 Reported and signed by: Constance Canseco M.D. CC: August Carpio MD; Chavo Dennis MD Technologist: Jesus Biswas RDMS (AB) (OB) Trnscb Date/Time: 01/30/2019 (0950) Gio Orig Print D/T: S: 01/30/2019 (0953) Probe: PAGE 1 Signed Report ARTERIAL BLOOD [id number] 08:02:00* Test Item Value Reference Range Comments ARTERIAL BLOOD GAS PH (test code=PHA) 7.366 7.35-7.45 ARTERIAL BLOOD GAS PCO2 (test code=PCO2A) 64.8 mmHg 35-45 ARTERIAL BLOOD GAS PO2 (test code=PO2A) 69 mmHg 80-100 BICARBONATE TOTAL HCO3 (test code=HCO3) 37.1 mmol/L 22.0-26.0 BASE EXCESS (test code=TEJAL) 12.0 mmol/L -4-4 ABG O2 SATURATION (test code=SATA) 92 % 90-100 ABG DELIVERY (test code=JOHANNE) Cannula ABG TEMPERATURE (test code=TEMPA) 98.6 F ABG SITE (test code=SITEA) L Rad TCO2 ARTERIAL (test code=TCO2A) 39 PROTHROMBIN [id number] 13:14:00* Test Item Value Reference Range Comments PROTHROMBIN TIME PATIENT (test code=PTP) 11.6 SECONDS 9.3-12.9 INTERNATIONAL NORMAL RATIO (test code=INR) 1.0 0.8-1.2 TARGET INR BY INDICATION Indication INR1. Prophylaxis of venous thrombosis 2.0 - 3.0 (orthopedic surgery), Prophylaxis of venous thrombosis (other than high-risk surgery), Treatment of Deep Vein Thrombosis/Pulmonary Embolism, Prevention of systemic embolism - Tissue heart valves, Acute Myocardial Infarction (to prevent systemic embolism), Valvular heart disease, Atrial Fibrillation, Bileaflet mechanical valve in aortic position.2. Mechanical prosthetic valves (high risk), 2.5 - 3.5 Presence of Lupus Anticoagulant or Antiphospholipid Antibodies, Prevention of systemic embolism - Acute Myocardial Infarction (to prevent recurrent infarct). RAPID PLASMA [id number] 11:01:00* Test Item Value Reference Range Comments RAPID PLASMA REAGIN (test code=RPR) NONREACTIVE NONREACTIVE - XR SHOULDER 2 + V [id number] 10:00:00 FAX: August Clifford MD [phone] [place]: St: ADM Name: KELSEY ARROYO [facility] : [birth year] Age/S: 69/M [address] [place] [address] Unit #: [id number] Loc: G.[address] [place] [address] Phys: August Carpio MD Acct: [id number] Dis Date: Status: ADM IN PHONE #: [phone] Exam Date: 01/28/20192146 FAX #: [phone] Reason: Painful EXAMS: CPT CODE: [id number] XR SHOULDER 2 + V [place] [address]110 Left shoulder 3 views 01/28/2019 HISTORY: Left shoulder pain. FINDINGS: There are moderate osteophytes in the acromioclavicular joint and glenohumeral joint. High riding left humeral head is noted. There are screws in the lateral aspect of the left humeral head. No fracture or dislocation is present. Dem ineralization is noted. IMPRESSION: 1. Moderate degener ative changes. 2. Previous rotator cuff surgery. 3. No fractur e or dislocation. SL: [id number] Electr onically Signed by Dafne Combs on 019 at 1000 Reported and signed by: Clay Combs M.D. CC: August Carpio MD Technologist: RT Lizbeth(R) Trnscrd Date/Time/By: 01/29/2019 (1000) : By: [email or web address] Orig Print D/T: S: 01/29/2019 (1004) PAGE 1 Signed Report - XR SHOULDER 2 + V RT 2019-01-29 09:50:00 FAX: August Clifford MD [phone] [place]: St: ADM Name: KELSEY ARROYO [facility] [place] : [birth year] Age/S: 69/M [address] [place] [address] Unit #: [id number] Loc: [place] [place] [address] Phys: August Carpio MD Acct: [id number] Dis Date: Status: ADM IN PHONE #: [phone] Exam Date: 01/28/20192146 FAX #: [phone] Reason: Painful EXAMS: CPT CODE: [id number] XR SHOULDER 2 + [place] [address] Right shoulder 3 views 01/28/2019 HISTORY: Right shoulder pain FINDINGS: Screws in the lateral right humeral head are noted. The humeral head is mildly high rid ing. There are osteophytes in the acromioclavicular joint and glenohumera l joint. No fracture or dislocation is present. No aggressive lytic or b lastic lesion is present. IMPRESSION: 1. No acute abnormality involving right shoulder. 2. Moderate degenerative changes. 3. Previous rotator cuff surgery. SL: [id number] at 0950 Reported and signed by: Clay Combs M.D. CC: August Carpio MD Technologist: RT Lizbeth(R) Trnscrd Date/Time/By: 01/29/2019 (0950) : By: [email or web address] Orig Print D/T: S: 01/29/2019 (0953) PAGE 1 Signed Report ACUTE HEPATITIS [id number] 09:04:00* Test Item Value Reference Range Comments AB HEPATITIS A IGM (test code=HAVMAB) NON REACTIVE INDEX NON REACT. AG HEPATITIS B SURFACE (test code=HBSAG) NON REACTIVE INDEX NonReactive AB HEPATITIS B CORE IGM (test code=HBCMAB) NON REACTIVE INDEX NON REACT. AB HEPATITIS C (test code=HCVAB) REACTIVE INDEX NON REACT. ACUTE HEPATITIS [id number] 08:25:00* Test Item Value Reference Range Comments AB HEPATITIS A IGM (test code=HAVMAB) INDEX NON REACT. AG HEPATITIS B SURFACE (test code=HBSAG) NON REACTIVE INDEX NonReactive AB HEPATITIS B CORE IGM (test code=HBCMAB) INDEX NON REACT. AB HEPATITIS C (test code=HCVAB) INDEX NON REACT. - CT HEAD/BRAIN W/O [id number] 07:41:00 Name: KELSEY JENNINGS [facility] : 1950 Age/S: 69 / M [address] [place] [address] Blvd Unit #: [id number] Loc: [place] [address] Phys: August Carpio MD Acct: [id number] Dis Date: Status: ADM IN PHONE #: [phone] Exam Date: 01/29/2019723 FAX #: [phone] Reason: HEADACHES EXAMS: CPT CODE: [id number] CT HEAD/BRAIN W/O CONT 38386 CT head without contrast 01/29/2019 HISTORY: Headaches, COPD exacerbation PROCEDURE: Multiple axial images from the skull base to the skull vertex were obtained without contrast. Coronal and sagittal reconstructed images were performed. DLP: 1016.5 Comparison is made to 12/20/2016 FINDINGS: No acute hemorrhage, midline shift, extra-axial fluid collection, or hydrocephalus is present. No cortical hypodensity to suggest an acute infarct is noted. The visualized mastoid air cells are clear. There is a small air-fluid level in the left maxillary sinus. Previous bilateral middle medial antrostomies are not completely imaged on this study. IMPRESSION: 1. No acute intracranial abnormality. 2. Small air-fluid level in left maxillary sinus. Sinusitis not excluded. SL: [id number] at 0741 Reported and signed by: Clay Combs M.D. CC: August Carpio MD Technologist:Cirilo Vasquez, RT(R)(CT) CTDI: DLP: Trnscb Jah e/Time: 01/29/2019 (0741) [email or web address] Orig Print D/T: S: (0744) CTDI: DLP: PAGE 1 Signed Report AB HIV 1 21:39:00* Test Item Value Reference Range Comments AB HIV 1 2 (test code=GDZ43YQ) NONREACTIVE INDEX NONREACTIVE SED RATE [id number] 17:36:00* Test Item Value Reference Range Comments SED RATE WESTERGREN (test code=SEDW) 1 mm/hr 0-15 LIPID PROFILE (CORONARY RISK)2019-01-28 17:26:00* Test Item Value Reference Range Comments TRIGLYCERIDES (test code=TRIG) 183 mg/dL 40-150 CHOLESTEROL (test code=CHOL) 229 mg/dL <200 CHOLESTEROL/HDL RATIO (test code=CHOLHDL) 4.77 RATIO 3.43-4.97 RISK ASSOCIATED WITH CHOL/HDL RATIOS: RISK MALE FEMALE1/2 AVERAGE 3.43 3.27AVERAGE 4.97 4.442X AVERAGE 9.55 7.053X AVERAGE 23.39 11.04 NOTE THAT THE REFERENCE VALUE IS RELATEDTO RISK LEVELS RECOMMENDED BY THE NATL.HEART, LUNG, AND BLOOD INST. HDL CHOLESTEROL (test code=HDL) 48.0 mg/dL 32-72 LIPOPROTEIN LDL (test code=LDL) 149 mg/dL 0-100 <100 [id number] NEAR OPTIMAL/ABOVE [id number] HIGH>KZ=530 VERY HIGH*Guidelines provided by the National Cholesterol EducationProgram Adult Treatment Panel III URIC [id number] 17:26:00* Test Item Value Reference Range Comments URIC ACID (test code=URIC) 13.8 mg/dL 2.6-7.2 [id number] 17:26:00* Test Item Value Reference Range Comments LIPASE (test code=LIP) 364 IUnit/L 73-393 [id number] 17:26:00* Test Item Value Reference Range Comments MAGNESIUM (test code=MAG) 2.10 mg/dL 1.8-2.4 VITAMIN [id number] 17:26:00* Test Item Value Reference Range Comments VITAMIN B12 (test code=VITB12) 1488 pg/mL 193-986 THYROID STIMULATING [id number] 17:26:00* Test Item Value Reference Range Comments THYROID STIMULATING HORMONE (test code=TSH) 4.59 0.42-5.47 Results in riaz-International Units/mL [id number] 17:26:00* Test Item Value Reference Range Comments TROPONIN-I (test code=TROPI) 0.020 ng/mL 0.000-0.045 Negative: <=0.045 Positive: >=0.046 Correlation with serial results, other cardiac markers andclinical findings is necessary to determine the clinicalsignificance of this result. Results using different methodologies should not be comparedto one another as quantitative results may vary by method. TESTOSTERONE FREE AND [id number] 17:26:00* Test Item Value Reference Range Comments TESTOSTERONE TOTAL (test code=TESTTOT) TESTOSTERONE (FREE) (test code=TESTF) VITAMIN [id number] 17:26:00* Test Item Value Reference Range Comments VITAMIN A (test code=LIZA) HGBA1C%2019-01-28 16:46:00* Test Item Value Reference Range Comments HGBA1C% (test code=HGBA1C%) 6.0 %A1C 4.8-6.0 URINALYSIS [id number] 16:06:00* Test Item Value Reference Range Comments UA COLOR (test code=COLU) ZHENG YEL/STRAW UA APPEARANCE (test code=APPU) SL CLOUDY CLEAR UA GLUCOSE DIPSTICK (test code=DGLUU) NEGATIVE NEGATIVE UA BILIRUBIN DIPSTICK (test code=BILU) NEGATIVE NEGATIVE UA KETONE DIPSTICK (test code=KETU) TRACE NEGATIVE UA SPECIFIC GRAVITY (test code=SGU) 1.012 1.005-1.030 UA BLOOD DIPSTICK (test code=RACHEL) NEGATIVE NEGATIVE UA PH DIPSTICK (test code=RANDI) 6.0 5.0-7.0 UA PROTEIN DIPSTICK (test code=PROU) NEGATIVE NEGATIVE UA UROBILINIOGEN DIPSTICK (test code=URO) 2.0 mg/dL 0.2-1.0 UA NITRITE DIPSTICK (test code=LISA) NEGATIVE NEGATIVE UA LEUKOCYTE ESTERASE DIPSTICK (test code=LEUU) NEGATIVE NEGATIVE UA WBC (test code=WBCU) 0-3 WBC/HPF 0-3 UA RBC (test code=RBCU) 0-3 RBC/HPF 0-3 UA BACTERIA (test code=BACU) TRACE /HPF NONE SEEN UA SQUAMOUS CELLS (test code=SQU) 0-5 /HPF NONE SEEN UA HYALINE CAST (test code=HYALU) 11-20 /LPF NONE SEEN UA MUCUS (test code=MUCU) TRACE /LPF NONE SEEN CBC W/AUTO [id number] 12:08:00* Test Item Value Reference Range Comments WHITE BLOOD CELL (test code=WBC) 3.46 x10 3/uL 4.5-11.0 RED BLOOD CELL (test code=RBC) 4.79 x10 6/uL 4.00-5.60 HEMOGLOBIN (test code=HGB) 15.7 g/dL 12.5-16.9 HEMATOCRIT (test code=HCT) 48.6 % 37.5-50.7 MEAN CELL VOLUME (test code=MCV) 101.5 fL 81.0-99.0 MEAN CELL HGB (test code=MCH) 32.8 pg 27.0-33.0 MEAN CELL HGB CONCETRATION (test code=MCHC) 32.3 g/dL 33.0-37.0 RED CELL DISTRIBUTION WIDTH CV (test code=RDW) 17.7 % 11.5-14.5 RED CELL DISTRIBUTION WIDTH SD (test code=RDW-SD) 64.9 fL 37.0-54.0 PLATELET COUNT (test code=PLT) 100 x10 3/uL 150-400 MEAN PLATELET VOLUME (test code=MPV) 11.9 fL 7.0-9.0 NEUTROPHIL % (test code=NT%) 61.5 % 56.0-77.0 IMMATURE GRANULOCYTE % (test code=IG%) 0.6 % 0.0-2.0 LYMPHOCYTE % (test code=LY%) 19.1 % 14.0-32.0 MONOCYTE % (test code=MO%) 15.9 % 4.8-9.0 EOSINOPHIL % (test code=EO%) 1.7 % 0.3-3.7 BASOPHIL % (test code=BA%) 1.2 % 0.0-2.0 NUCLEATED RBC % (test code=NRBC%) 1.2 % 0-0 NEUTROPHIL # (test code=NT#) 2.13 x10 3/uL 2.0-7.6 IMMATURE GRANULOCYTE # (test code=IG#) 0.02 x10 3/uL 0.00-0.03 LYMPHOCYTE # (test code=LY#) 0.66 x10 3/uL 1.0-3.8 MONOCYTE # (test code=MO#) 0.55 x10 3/uL 0.1-0.8 EOSINOPHIL # (test code=EO#) 0.06 x10 3/uL 0.0-0.2 BASOPHIL # (test code=BA#) 0.04 x10 3/uL 0.0-0.2 NUCLEATED RBC # (test code=NRBC#) 0.04 x10 3/uL 0.0-0.1 MANUAL DIFF REQUIRED (test code=MDIFF) NO PLT [id number] 12:08:00* Test Item Value Reference Range Comments PLATELET ESTIMATE (test code=PLTEST) THOUSAND ADEQUATE CBC W/AUTO [id number] 12:08:00* Test Item Value Reference Range Comments WHITE BLOOD CELL (test code=WBC) 3.46 x10 3/uL 4.5-11.0 RED BLOOD CELL (test code=RBC) 4.79 x10 6/uL 4.00-5.60 HEMOGLOBIN (test code=HGB) 15.7 g/dL 12.5-16.9 HEMATOCRIT (test code=HCT) 48.6 % 37.5-50.7 MEAN CELL VOLUME (test code=MCV) 101.5 fL 81.0-99.0 MEAN CELL HGB (test code=MCH) 32.8 pg 27.0-33.0 MEAN CELL HGB CONCETRATION (test code=MCHC) 32.3 g/dL 33.0-37.0 RED CELL DISTRIBUTION WIDTH CV (test code=RDW) 17.7 % 11.5-14.5 RED CELL DISTRIBUTION WIDTH SD (test code=RDW-SD) 64.9 fL 37.0-54.0 PLATELET COUNT (test code=PLT) 100 x10 3/uL 150-400 MEAN PLATELET VOLUME (test code=MPV) 11.9 fL 7.0-9.0 NEUTROPHIL % (test code=NT%) 61.5 % 56.0-77.0 IMMATURE GRANULOCYTE % (test code=IG%) 0.6 % 0.0-2.0 LYMPHOCYTE % (test code=LY%) 19.1 % 14.0-32.0 MONOCYTE % (test code=MO%) 15.9 % 4.8-9.0 EOSINOPHIL % (test code=EO%) 1.7 % 0.3-3.7 BASOPHIL % (test code=BA%) 1.2 % 0.0-2.0 NUCLEATED RBC % (test code=NRBC%) 1.2 % 0-0 NEUTROPHIL # (test code=NT#) 2.13 x10 3/uL 2.0-7.6 IMMATURE GRANULOCYTE # (test code=IG#) 0.02 x10 3/uL 0.00-0.03 LYMPHOCYTE # (test code=LY#) 0.66 x10 3/uL 1.0-3.8 MONOCYTE # (test code=MO#) 0.55 x10 3/uL 0.1-0.8 EOSINOPHIL # (test code=EO#) 0.06 x10 3/uL 0.0-0.2 BASOPHIL # (test code=BA#) 0.04 x10 3/uL 0.0-0.2 NUCLEATED RBC # (test code=NRBC#) 0.04 x10 3/uL 0.0-0.1 MANUAL DIFF REQUIRED (test code=MDIFF) NO PLT [id number] 12:08:00* Test Item Value Reference Range Comments PLATELET ESTIMATE (test code=PLTEST) 136-175 THOUSAND ADEQUATE PLATELET MORPHOLOGY (test code=PLTMORPH) GIANT PLATELETS CBC W/AUTO [id number] 12:08:00* Test Item Value Reference Range Comments WHITE BLOOD CELL (test code=WBC) 3.46 x10 3/uL 4.5-11.0 RED BLOOD CELL (test code=RBC) 4.79 x10 6/uL 4.00-5.60 HEMOGLOBIN (test code=HGB) 15.7 g/dL 12.5-16.9 HEMATOCRIT (test code=HCT) 48.6 % 37.5-50.7 MEAN CELL VOLUME (test code=MCV) 101.5 fL 81.0-99.0 MEAN CELL HGB (test code=MCH) 32.8 pg 27.0-33.0 MEAN CELL HGB CONCETRATION (test code=MCHC) 32.3 g/dL 33.0-37.0 RED CELL DISTRIBUTION WIDTH CV (test code=RDW) 17.7 % 11.5-14.5 RED CELL DISTRIBUTION WIDTH SD (test code=RDW-SD) 64.9 fL 37.0-54.0 PLATELET COUNT (test code=PLT) 100 x10 3/uL 150-400 MEAN PLATELET VOLUME (test code=MPV) 11.9 fL 7.0-9.0 NEUTROPHIL % (test code=NT%) 61.5 % 56.0-77.0 IMMATURE GRANULOCYTE % (test code=IG%) 0.6 % 0.0-2.0 LYMPHOCYTE % (test code=LY%) 19.1 % 14.0-32.0 MONOCYTE % (test code=MO%) 15.9 % 4.8-9.0 EOSINOPHIL % (test code=EO%) 1.7 % 0.3-3.7 BASOPHIL % (test code=BA%) 1.2 % 0.0-2.0 NUCLEATED RBC % (test code=NRBC%) 1.2 % 0-0 NEUTROPHIL # (test code=NT#) 2.13 x10 3/uL 2.0-7.6 IMMATURE GRANULOCYTE # (test code=IG#) 0.02 x10 3/uL 0.00-0.03 LYMPHOCYTE # (test code=LY#) 0.66 x10 3/uL 1.0-3.8 MONOCYTE # (test code=MO#) 0.55 x10 3/uL 0.1-0.8 EOSINOPHIL # (test code=EO#) 0.06 x10 3/uL 0.0-0.2 BASOPHIL # (test code=BA#) 0.04 x10 3/uL 0.0-0.2 NUCLEATED RBC # (test code=NRBC#) 0.04 x10 3/uL 0.0-0.1 MANUAL DIFF REQUIRED (test code=MDIFF) NO PLT [id number] 12:08:00* Test Item Value Reference Range Comments PLATELET ESTIMATE (test code=PLTEST) THOUSAND ADEQUATE B-TYPE NATRIURETIC [id number] 11:13:00* Test Item Value Reference Range Comments B-TYPE NATRIURETIC PEPTIDE (test code=BNP) 146.2 PG/ML 0-100 BASIC METABOLIC [id number] 10:46:00* Test Item Value Reference Range Comments SODIUM (test code=NA) 133 mEq/L 134-147 POTASSIUM (test code=K) 3.7 mEq/L 3.4-5.0 CHLORIDE (test code=CL) 89 mEq/L 100-108 CARBON DIOXIDE (test code=CO2) 35 mEq/L 21-33 ANION GAP (test code=GAP) 13 0-20 GLUCOSE (test code=GLU) 84 mg/dL 70-110 BLOOD UREA NITROGEN (test code=BUN) 26 mg/dL 7-18 GLOMERULAR FILTRATION RATE (test code=GFR) 43.3 80-90 Units of measure=ml/min/1.73 m2 CREATININE (test code=CREAT) 1.6 mg/dL 0.6-1.3 CALCIUM (test code=CA) 9.0 mg/dL 8.0-10.5 HEPATIC FUNCTION [id number] 10:46:00* Test Item Value Reference Range Comments TOTAL PROTEIN (test code=PROT) 7.1 g/dL 6.4-8.2 ALBUMIN (test code=ALB) 3.40 g/dL 3.4-5.0 BILIRUBIN TOTAL (test code=BILT) 1.50 mg/dL 0.0-1.0 BILIRUBIN DIRECT (test code=BILD) 0.80 MG/DL 0.0-0.30 BILIRUBIN INDIRECT (test code=BILIND) 0.70 MG/DL SGOT/AST (test code=AST) 215 IUnit/L 15-37 SGPT/ALT (test code=ALT) 188 IUnit/L 15-65 ALKALINE PHOSPHATASE TOTAL (test code=ALKP) 149 IUnit/L 20-125 [id number] 10:46:00* Test Item Value Reference Range Comments LIPASE (test code=LIP) 414 IUnit/L 73-393 [id number] 10:46:00* Test Item Value Reference Range Comments TROPONIN-I (test code=TROPI) 0.019 ng/mL 0.000-0.045 Negative: <=0.045 Positive: >=0.046 Correlation with serial results, other cardiac markers andclinical findings is necessary to determine the clinicalsignificance of this result. Results using different methodologies should not be comparedto one another as quantitative results may vary by method. CBC W/AUTO [id number] 10:28:00* Test Item Value Reference Range Comments WHITE BLOOD CELL (test code=WBC) 3.46 x10 3/uL 4.5-11.0 RED BLOOD CELL (test code=RBC) 4.79 x10 6/uL 4.00-5.60 HEMOGLOBIN (test code=HGB) 15.7 g/dL 12.5-16.9 HEMATOCRIT (test code=HCT) 48.6 % 37.5-50.7 MEAN CELL VOLUME (test code=MCV) 101.5 fL 81.0-99.0 MEAN CELL HGB (test code=MCH) 32.8 pg 27.0-33.0 MEAN CELL HGB CONCETRATION (test code=MCHC) 32.3 g/dL 33.0-37.0 RED CELL DISTRIBUTION WIDTH CV (test code=RDW) 17.7 % 11.5-14.5 RED CELL DISTRIBUTION WIDTH SD (test code=RDW-SD) 64.9 fL 37.0-54.0 PLATELET COUNT (test code=PLT) 100 x10 3/uL 150-400 MEAN PLATELET VOLUME (test code=MPV) 11.9 fL 7.0-9.0 NEUTROPHIL % (test code=NT%) 61.5 % 56.0-77.0 IMMATURE GRANULOCYTE % (test code=IG%) 0.6 % 0.0-2.0 LYMPHOCYTE % (test code=LY%) 19.1 % 14.0-32.0 MONOCYTE % (test code=MO%) 15.9 % 4.8-9.0 EOSINOPHIL % (test code=EO%) 1.7 % 0.3-3.7 BASOPHIL % (test code=BA%) 1.2 % 0.0-2.0 NUCLEATED RBC % (test code=NRBC%) 1.2 % 0-0 NEUTROPHIL # (test code=NT#) 2.13 x10 3/uL 2.0-7.6 IMMATURE GRANULOCYTE # (test code=IG#) 0.02 x10 3/uL 0.00-0.03 LYMPHOCYTE # (test code=LY#) 0.66 x10 3/uL 1.0-3.8 MONOCYTE # (test code=MO#) 0.55 x10 3/uL 0.1-0.8 EOSINOPHIL # (test code=EO#) 0.06 x10 3/uL 0.0-0.2 BASOPHIL # (test code=BA#) 0.04 x10 3/uL 0.0-0.2 NUCLEATED RBC # (test code=NRBC#) 0.04 x10 3/uL 0.0-0.1 MANUAL DIFF REQUIRED (test code=MDIFF) NO - XR CHEST 1 [id number] 10:28:00 FAX: Reji Sena DO [phone] [place]: St: REG FAX: Blair Fink [phone] FAX: August Clifford MD [phone] Name: JENNINGSKELSEY MAGDALENO [facility] : 1950 Age/S: 69/M [address] [place] [address] Blvd Unit #: [id number] Loc: [place] [address] Phys: Blair Barclay Acct: [id number] Dis Date: Status: REG ER PH ONE #: [phone] Exam Date: 01/28/2019 1023 FAX #: [phone] Reason: SOB EXAMS: CPT CODE: [id number] XR CHEST 1 V 38928 PROCEDURE: [facility] ST SINGLE VIEW INDICATION: Shortness of breath HEBERT RISON: 12/20/2016 FINDINGS: There is a stable 4 mm nodule in the rig ht upper lobe. The lungs are otherwise clear. Peribronchial thickening i s noted. The pleura, cardiomediastinal silhouette and bony thorax are nor mal. No vascular congestion is present. Left subclavian pacemaker is stabl e. IMPRESSION: 1. No consolidation. 2. Yadira bronchial thickening. Bronchitis not excluded. SL: [id number] G06 at 1028 R eported and signed by: Clay Combs M.D. CC: Reji Singh owns DO; Blair MOROCHO; August Carpio MD Technologist: RT Shari( R) Trnscrd Date/Time/By: 01/28/2019 (1028) : By : [email or web address] Orig Print D/T: S: 01/28/2019 (1037) PAGE 1 Signed Report
[2019-08-13 16:16] LABS: BASOPHILS % 0.5 % (0.0-1.0); EOSINOPHILS # (AUTO) 0.4 (0.0-0.4); EOSINOPHILS % 6.1 % (0.0-6.0); HEMOGLOBIN 9.1 g/dL (14.0-18.0); LYMPHOCYTES # (AUTO) 1.3 (1.0-3.2); LYMPHOCYTES % 20.6 % (18.0-39.1); MEAN CORPUSCULAR HGB CONC 28.4 g/dL (31-35); MEAN CORPUSCULAR VOLUME 73.9 fL (81-99); MONOCYTES # (AUTO) 0.5 (0.2-0.8); MONOCYTES % 8.5 % (4.4-11.3); NEUTROPHILS # (AUTO) 4.1 (2.1-6.9); NEUTROPHILS % 64.1 % (38.7-80.0); PLATELET COUNT 211 x10e3/uL (140-360); RED BLOOD COUNT 4.33 x10e6/uL (4.3-5.7)
[2019-08-13 16:31] LABS: INR 0.85; PROTHROMBIN TIME 12.1 seconds (11.9-14.5)
[2019-08-13 16:32] LABS: PARTIAL THROMBOPLASTIN TIME 30.2 seconds (23.8-35.5)
[2019-08-13 16:38] LABS: BILIRUBIN,URINE NEGATIVE (NEGATIVE); KETONES,URINE NEGATIVE (NEGATIVE); LEUKOCYTE ESTERASE ,URINE TRACE (NEGATIVE); NITRITE,URINE NEGATIVE (NEGATIVE); PROTEIN,URINE DIPSTICK NEGATIVE (NEGATIVE); URINE UROBILINOGEN 0.2 mg/dL (0.2 - 1)
[2019-08-13 16:39] LABS: CLARITY,URINE SL CLOUDY (CLEAR); COLOR,URINE YELLOW (YELLOW)
[2019-08-13 16:41] LABS: ALBUMIN 3.4 g/dL (3.5-5.0); ANION GAP 11.9 mmol/L (8-16); CALCIUM 9.1 mg/dL (8.4-10.2); CREATININE, SERUM 1.39 mg/dL (0.72-1.25); MAGNESIUM 1.9 MG/DL (1.3-2.1); POTASSIUM 3.9 mmol/L (3.5-5.1)
[2019-08-13 16:49] LABS: CREATINE KINASE MB 3.7 ng/mL (0-5.0)
[2019-08-13 16:50] LABS: BACTERIA,URINE FEW /HPF; EPITHELIAL CELLS,URINE FEW /LPF; MUCUS,URINE FEW (RARE); WBC,URINE (MAN) 0-5 /HPF (0-5)
--- NOTE | 2019-08-13 19:08 | Diagnostic Imaging Report ---
EXAM: Scrotal Ultrasound INDICATION: Scrotal swelling. COMPARISON: None TECHNIQUE: Transverse and longitudinal images were obtained of the scrotum with grayscale imaging, color Doppler and spectral waveform analysis. FINDINGS: Right testis: Size: 3.4 x 1.9 x 2.2 cm, normal in size. Echogenicity: Normal Mass/Cysts: None Left testis: Size: 3.3 x 2.2 x 2.0 cm, normal in size. Echogenicity: Normal Mass/Cysts: None Epididymis: Appearance: Normal in size without increased vascularity. Mass/Cysts: Anechoic lesion in the right ependymal head measures 0.5 x 0.5 x 0.6 cm. An anechoic lesion at left epidermal head measures 0.4 x 4.2 x 0.3 cm. Extratesticular: Masses: None Fluid collections: Trace volume left sided hydrocele. Diffuse scrotal wall edema with skin thickening. Area of swelling above the benign shaft demonstrate a serpentine hypoechoic structure without internal blood flow which may represent a thrombosed vein. Doppler: Normal arterial flow to both testes and symmetrical flow on color Doppler evaluation is seen. No evidence of testicular torsion. Bilateral varicoceles. IMPRESSION: 1. No evidence of testicular torsion. 2. Area of swelling above the benign shaft demonstrate a serpentine hypoechoic structure without internal blood flow which may represent a thrombosed vein. Suggest urology consultation and follow-up with radiologist present during exam. 3. Bilateral tiny epididymal head spermatocele versus cyst. Signed by: Dr. Vinny Phillips M.D. on 08/13/2019 7:05 PM
[2019-08-13] MEDS ORDERED: SODIUM CHLORIDE FLUSH 10 ML SYR INJ PRN (19:15)
[2019-08-13] MEDS ORDERED: FLUOXETINE HCL20 MG PO (20:59)
[2019-08-13] MEDS ORDERED: AMIODARONE HCL200 MG PO (20:59)
[2019-08-13] MEDS ORDERED: MELATONIN3 MG PO (20:59)
[2019-08-13] MEDS ORDERED: MORPHINE SULFATE IR PO (20:59)
[2019-08-13] MEDS ORDERED: DHEA25 MG PO (20:59)
[2019-08-13] MEDS ORDERED: FUROSEMIDE40 MG PO (20:59)
[2019-08-13] MEDS ORDERED: PREDNISONE5 MG PO (20:59)
[2019-08-13] MEDS ORDERED: PLAVIX75 MG PO (20:59)
[2019-08-13] MEDS ORDERED: MAGNESIUM OXID400 MG PO (20:59)
[2019-08-13] MEDS ORDERED: CLARITIN-D 241 EACH PO (20:59)
[2019-08-13] MEDS ORDERED: METOPROLOL TART50 MG PO (20:59)
[2019-08-13] MEDS ORDERED: MORPHINE SULFAT30 M2 PO (20:59)
[2019-08-13] MEDS ORDERED: DIAZEPAM5 MG PO (20:59)
[2019-08-13] MEDS ORDERED: DIAZEPAM 5 MG TAB PO PRN (21:15)
[2019-08-13] MEDS ORDERED: MELATONIN 3 MG TAB PO PRN (21:15)
[2019-08-13] MEDS ORDERED: ACETAMINOPHEN 325 MG TAB PO PRN (21:30)
[2019-08-13] MEDS ORDERED: MELATONIN 5 MG TABLET PO PRN (21:30)
[2019-08-13] MEDS: METOPROLOL TARTRATE 50 MG TAB PO SCH (21:38)
[2019-08-13] MEDS: ONDANSETRON HCL INJ 2MG/ML 2ML 2 MG/ML VIAL IV PRN (22:07)
[2019-08-13] MEDS: CLOPIDOGREL BISULFATE 75 MG TAB PO SCH (22:07)
[2019-08-13] MEDS: MORPHINE SULFATE INJ 4 MG/ML INJ 1ML IV PRN (22:07)
--- NOTE | 2019-08-14 00:08 | NUR ---
PT OFFERED HOSPITAL BED FOR COMFORT - PT REFUSED STATING "IM OKAY ON THIS ONE. I JUST NEED A PILLOW AND I CAN SLEEP ANYWHERE"; PT INFORMED TO CALL IF HE CHANGED HIS MIND
--- NOTE | 2019-08-14 00:18 | NUR ---
PT STATES HE HAS SLEEP APNEA - O2 SATS DROPPED TO 89% DURING SLEEP; PT REFUSES NASAL CANNULA STATING "I CANT SLEEP WITH IT"; PT O2 SATS 98% WHILE AWAKE; PT DENIES SOB, NO RESP DISTRESS NOTED.
--- NOTE | 2019-08-14 01:18 | NUR ---
PT O2 SATS DROPPED TO 75% WHILE PT WAS SLEEPING - PT PLACED ON 3L NC - O2 SATS NOW 98%
--- NOTE | 2019-08-14 03:18 | NUR ---
PT SLEEPING IN BED WITH NO COMPLAINTS AT THIS TIME; PT STILL REFUSES HOSPITAL BED; PT ON FULL MONITORS, RESP EVEN AND NONLAB, NAD NOTED
[2019-08-14] MEDS: ONDANSETRON HCL INJ 2MG/ML 2ML 2 MG/ML VIAL IV PRN ×3 (03:32→20:11)
[2019-08-14] MEDS: MORPHINE SULFATE INJ 4 MG/ML INJ 1ML IV PRN ×4 (03:32→19:47)
--- NOTE | 2019-08-14 07:00 | NUR ---
report to rk blackburn
[2019-08-14] MEDS: METOPROLOL TARTRATE 50 MG TAB PO SCH ×2 (08:49→16:43)
[2019-08-14] MEDS ORDERED: METOPROLOL TARTRATE 50 MG TAB PO SCH (09:00)
[2019-08-14] MEDS: AMIODARONE HCL 200 MG TAB PO SCH (09:05)
[2019-08-14] MEDS: PREDNISONE 5 MG TAB PO SCH (09:05)
[2019-08-14] MEDS: MAGNESIUM OXIDE 400 MG TAB PO SCH (09:05)
[2019-08-14] MEDS: FUROSEMIDE 40 MG TAB PO SCH (09:05)
[2019-08-14] MEDS: PRASTERONE 25 MG PO SCH (09:08)
--- NOTE | 2019-08-14 10:23 | NUR ---
Report given to ANTOINE Pinto
[2019-08-14] MEDS: LORATADINE/PSEUDOEPHEDRINE 24 HR SR TAB PO SCH (10:30)
[2019-08-14] MEDS: FLUOXETINE HCL 20 MG CAP PO SCH (10:30)
[2019-08-14 11:05] VITALS: BP 121/69
[2019-08-14 11:08] VITALS: BP 121/69
[2019-08-14 12:23] VITALS: BP 121/69
[2019-08-14] MEDS: CEFEPIME 1GM/NS 0.9% 50 ML 50 ML IV SCH ×2 (12:28→23:45)
[2019-08-14] MEDS: VANCOMYCIN 1GM/NS 250 ML 250 ML IV SCH (12:28)
[2019-08-14 16:30] VITALS: BP 112/73
[2019-08-14] MEDS: ENOXAPARIN SOD INJ 40 MG/0.4 ML SYR SC SCH (16:43)
--- NOTE | 2019-08-14 16:52 | Diagnostic Imaging Report ---
EXAMINATION: CHEST 2 VIEWS INDICATION: Shortness of breath COMPARISON: None FINDINGS: LINES/TUBES:Left chest single lead AICD terminates in the left ventricle. LUNGS:The lungs are moderately inflated. No focal consolidation or pulmonary edema. Bilateral subcentimeter calcified granulomas. PLEURA:No pleural effusion or pneumothorax. MEDIASTINUM:The cardiomediastinal silhouette appears normal in size and shape. BONES/SOFT TISSUES:No acute osseous injury. ABDOMEN:No free air under the diaphragm. IMPRESSION: No focal pneumonia or pulmonary edema. Signed by: Yuniel Chen MD on 08/14/2019 4:48 PM
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
[2019-08-14 20:34] VITALS: BP 112/67
[2019-08-14] MEDS ORDERED: CLOPIDOGREL BISULFATE 75 MG TAB PO SCH (21:00)
--- NOTE | 2019-08-14 21:18 | Diagnostic Imaging Report ---
EXAM: CT Abdomen and Pelvis WITHOUT contrast INDICATION: Lower pelvic lymphedema COMPARISON: Scrotal ultrasound 08/13/2019. TECHNIQUE: Abdomen and pelvis were scanned utilizing a multidetector helical scanner from the lung base to the pubic symphysis without administration of IV contrast. Absence of intravenous contrast decreases sensitivity for detection of focal lesions and vascular pathology. Coronal and sagittal reformations were obtained. Routine protocol was performed. IV CONTRAST: None ORAL CONTRAST: None COMPLICATIONS: None RADIATION DOSE: Total DLP: 897 mGy*cm Estimated effective dose: (DLP x 0.015 x size factor) mSv CTDIvol has been reviewed. It is below the limits set by the Radiation Protocol Committee (RPC). Dose modulation, iterative reconstruction, and/or weight based adjustment of the mA/kV was utilized to reduce the radiation dose to as low as reasonably achievable. FINDINGS: LINES and TUBES: Cardiac device lead, tip at the right ventricular apex. LOWER THORAX: Coronary artery calcifications. Scattered areas of scarring and atelectasis in the lower lungs. HEPATOBILIARY: Multiple round, ovoid, and lobular circumscribed fluid densities which measure up to 2 cm in the left hepatic lobe, as well as a few similar appearing hypodensities in the right hepatic lobe. No biliary ductal dilation. GALLBLADDER: No radio-opaque stones or sludge. No wall thickening. SPLEEN: No splenomegaly. PANCREAS: No focal masses or ductal dilatation. ADRENALS: No adrenal nodules KIDNEYS/URETERS: No hydronephrosis. No cystic or solid mass lesions. No stones. Mild bilateral perinephric fat stranding can be seen in renal insufficiency or senescence. GI TRACT: No abnormal distention, wall thickening, or evidence of bowel obstruction. Appendix is normal. PELVIC ORGANS/BLADDER: The prostate has been resected. Post surgical changes in the lower pelvis.. LYMPH NODES: Slightly prominent bilateral inguinal lymph nodes. No intraabdominal lymphadenopathy. Small hydroceles. VESSELS: The distal aspect of the left external iliac/proximal common femoral vein is markedly diminutive, at a site associated with surgical changes (series 3 image 144). See soft tissue findings section for description of lower anterior abdominal subcutaneous soft tissue vessels. There is mild atherosclerotic disease in the aorta and major arterial branches. PERITONEUM / RETROPERITONEUM: No free air or fluid. BONES: There are severe degenerative changes in the lumbar spine, with anterolisthesis of L5 on S1 due to bilateral L5 inferior pars defects.. SOFT TISSUES: Tortuous ectatic lower anterior pelvic subcutaneous and scrotal vessels, with mild surrounding fat stranding and scrotal wall edema and thickening.. IMPRESSION: 1. Bilateral scrotal varicocele and vascular varices in the lower anterior pelvic subcutaneous soft tissues and scrotum, with mild fat stranding. Suspect obliteration of the distal left common iliac/proximal common femoral vein adjacent to surgical changes in the pelvis. The varices may be due to collateral drainage from the left lower extremity to the iliac veins. 2. Multiple indeterminate hypodensities in the liver may represent simple cysts. Recommend nonemergent abdominal CT liver mass protocol for further evaluation. 3. Severe lumbar spine degenerative changes with mild anterolisthesis of L5 on S1. Signed by: Wilfredo Spring DO on 08/14/2019 9:14 PM
[2019-08-14] MEDS: CLOPIDOGREL BISULFATE 75 MG TAB PO SCH (21:51)
[2019-08-14] MEDS ORDERED: SODIUM CHLORIDE 0.9% 250ML 250 ML ONE (23:39)
[2019-08-14 23:49] VITALS: BP 122/67
[2019-08-15] MEDS: MORPHINE SULFATE INJ 4 MG/ML INJ 1ML IV PRN ×6 (00:15→21:30)
[2019-08-15] MEDS: VANCOMYCIN 1GM/NS 250 ML 250 ML IV SCH ×2 (00:15→13:36)
[2019-08-15] MEDS: ONDANSETRON HCL INJ 2MG/ML 2ML 2 MG/ML VIAL IV PRN ×6 (00:15→21:30)
--- NOTE | 2019-08-15 00:54 | Consultation ---
DATE OF CONSULTATION: 08/14/2019 Urology consultation REASON FOR CONSULTATION: Scrotal edema. HISTORY OF PRESENT ILLNESS: Carlos Briseno is a 69-year-old man with a longstanding urological history. The patient has had prostate cancer. He had status post radical prostatectomy followed by radiotherapy. This left the patient with both stress and urge type urinary incontinence as well as erectile dysfunction. The patient was admitted with penoscrotal edema. The patient has had interventional therapy on the veins of his lower extremity and had acute swelling and presented to the emergency room, where he was evaluated and subsequently admitted. PAST MEDICAL AND SURGICAL HISTORY: 1. Status post surgery of his back. 2. Status post radical prostatectomy with bilateral pelvic lymphadenectomy. 3. BPH according to the history. 4. Hepatitis. 5. Penis circulatory problems. 6. Heavy smoker. 7. Status post pacemaker. 8. Status post defibrillator. CURRENT MEDICATIONS: Please refer to the MAR. ALLERGIES: NONE KNOWN. SOCIAL HISTORY: The patient smokes anywhere from four packs per day to one-half pack per day of cigarettes. He is a recovering alcoholic. He denies drug use. 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 FAMILY HISTORY: Noncontributory to the active urological problems. REVIEW OF SYSTEMS: Discussed as above history of present illness, past medical history, otherwise negative for all systems. PHYSICAL EXAMINATION: GENERAL: Very pleasant 69-year-old man, lying in bed, in no apparent distress. VITAL SIGNS: He is currently afebrile. Vital signs are currently stable. ABDOMEN: Soft, nondistended, and nontender. It is obese and there may be some ascites on physical examination. GENITOURINARY: Testes descended bilaterally. Testes are nontender. The patient has penoscrotal edema and has some erythema around the penile base. He has a normal circumcised male phallus with normal meatus without any lesion. He has a blue dot tattooed in the suprapubic area consistent with radiotherapy. The patient's penis is buried by his obesity and edema. For the remaining physical examination systems, please refer to the admission history and physical on the chart. LABORATORY STUDIES: Scrotal sonography reveals bilateral spermatoceles. Testes are somewhat small and some vascular issues which is in probably the dorsal penile vein. There was no remarks in the ultrasound about the patient's very large scrotal wall veins, they are engorged on physical examination. White blood cell count 6360, hemoglobin 9.1, and platelets 211,000. The patient's creatinine is 1.39, which is progressively which is unknown if that is acute or chronic. The patient has a urinalysis is unremarkable. ASSESSMENT: 1. Prostate cancer, status post radical prostatectomy as well as radiotherapy. 2. Urinary incontinence. 3. Erectile dysfunction. 4. Penoscrotal edema. 5. Anemia. 6. Presumably acute renal failure. 7. Bilateral spermatoceles noted on ultrasonography. PLAN: 1. Intravenous antibiotics. 2. Scrotal elevation. 3. I will order a CT of the abdomen and pelvis to evaluate for abnormalities including ascites as well as well as the potential for venous abnormalities of the large veins of the retroperitoneum. 4. I defer the management of the edema to the primary team as well as to the patient's rod placer. Thank you very much for involving us in the care of your patient. We will be happy to follow him along with you as well as an outpatient. Brandon MD Daniele OH/MODL /[id number] cc: August Carpio MD
[2019-08-15 04:00] VITALS: BP 101/49
[2019-08-15 05:41] LABS: BASOPHILS % 0.3 % (0.0-1.0); EOSINOPHILS # (AUTO) 0.4 (0.0-0.4); EOSINOPHILS % 6.2 % (0.0-6.0); HEMATOCRIT 32.4 % (38.2-49.6); HEMOGLOBIN 8.8 g/dL (14.0-18.0); LYMPHOCYTES # (AUTO) 1.4 (1.0-3.2); LYMPHOCYTES % 24.1 % (18.0-39.1); MEAN CORPUSCULAR HEMOGLOBIN 20.5 pg (28-32); MEAN CORPUSCULAR HGB CONC 27.2 g/dL (31-35); MEAN CORPUSCULAR VOLUME 75.5 fL (81-99); MONOCYTES # (AUTO) 0.7 (0.2-0.8); MONOCYTES % 11.6 % (4.4-11.3); NEUTROPHILS # (AUTO) 3.4 (2.1-6.9); NEUTROPHILS % 57.6 % (38.7-80.0); PLATELET COUNT 198 x10e3/uL (140-360); RED BLOOD COUNT 4.29 x10e6/uL (4.3-5.7); RED CELL DISTRIBUTION WIDTH 18.2 % (11.7-14.4)
[2019-08-15 06:14] LABS: ANION GAP 11.4 mmol/L (8-16); BLOOD UREA NITROGEN 19 mg/dL (7-26); BUN/CREATININE RATIO 19 (6-25); CALCIUM 8.8 mg/dL (8.4-10.2); CARBON DIOXIDE 31 mmol/L (22-29); CHLORIDE 103 mmol/L (98-107); CREATININE, SERUM 1.01 mg/dL (0.72-1.25); EST GLOMERULAR FILTRATION RATE > 60 ML/MIN (60-); GLUCOSE 86 mg/dL (74-118); POTASSIUM 4.4 mmol/L (3.5-5.1); SODIUM 141 mmol/L (136-145)
[2019-08-15 08:21] VITALS: BP 146/65
[2019-08-15 08:25] VITALS: BP 146/65
[2019-08-15] MEDS: LORATADINE/PSEUDOEPHEDRINE 24 HR SR TAB PO SCH (08:26)
[2019-08-15] MEDS: PRASTERONE 25 MG PO SCH (08:26)
[2019-08-15] MEDS: AMIODARONE HCL 200 MG TAB PO SCH (08:26)
[2019-08-15] MEDS: METOPROLOL TARTRATE 50 MG TAB PO SCH ×2 (08:27→16:27)
[2019-08-15] MEDS: MAGNESIUM OXIDE 400 MG TAB PO SCH (08:27)
[2019-08-15] MEDS: PREDNISONE 5 MG TAB PO SCH (08:27)
[2019-08-15] MEDS: FLUOXETINE HCL 20 MG CAP PO SCH (08:27)
[2019-08-15] MEDS: FUROSEMIDE 40 MG TAB PO SCH (08:50)
[2019-08-15 11:54] VITALS: BP 132/58
[2019-08-15] MEDS: CEFEPIME 1GM/NS 0.9% 50 ML 50 ML IV SCH (12:29)
[2019-08-15] MEDS ORDERED: HYDROCODONE/APAP 7.5MG-325MG 1 EA TAB PO PRN (15:30)
--- NOTE | 2019-08-15 16:57 | Progress Note ---
DATE: 08/15/2019 Medicine Progress Note SUBJECTIVE: The patient is doing well today with no complaints. He states that his swelling in his scrotum has improved tremendously. He does have some induration there as well as concern for cellulitis. He does have lower extremity edema and also had an ICD and the family is complaining about the edema. I have seen that the patient's diet is very high salt and sodium intake at home. He seems to be very noncompliant with his diet. PHYSICAL EXAMINATION: VITAL SIGNS: Temperature is 96.4, pulse 60, respiratory rate is 23, blood pressure 132/58, and pulse ox is 91% on room air. GENERAL: Not in acute distress. Alert and oriented x3. Cooperative on examination. HEENT: Head; normocephalic, atraumatic. Eyes; pupils are equal, round, and reactive to light bilaterally. Extraocular movements intact bilaterally. Throat; no evidence of erythema or exudates in the posterior pharynx. Has poor dentition. NECK: Supple. Good range of motion. PULMONARY: Clear to auscultation bilaterally. No wheezing, no rales, no rhonchi, no crackles appreciated. CARDIOVASCULAR: Positive S1 and S2. No murmurs, rubs, or gallops appreciated. ABDOMEN: Soft, nondistended, and nontender to palpation. Bowel sounds present. MUSCULOSKELETAL: Strength is 5/5 throughout. No evidence of any muscle deficits on examination. No weakness appreciated. NEUROLOGIC: Cranial nerves II through XII grossly intact. No evidence of any neurological deficits on exam. SKIN: Intact. Warm to touch. Good cap refill. PSYCHIATRIC: Normal affect and mood. EXTREMITIES: No edema. Good range of motion throughout. LABORATORY FINDINGS: Show white count of 5.8, hemoglobin 8.8, hematocrit is 32, MCV 75, and platelets of 198. Coagulation; PT 12, INR 0.85, and PTT 30. Chemistry; sodium 141, potassium 4.4, chloride 103, bicarb 31, anion gap of 11, BUN is 19, his creatinine is 1, GFR greater than 60, glucose is 86, calcium is 8.8, and magnesium is 1.9. Total bilirubin is 0.3, AST 17, ALT 15, and alkaline phosphatase 62. CK 131. Troponins were found to be 0.022 negative. Albumin 3.4. IMAGING STUDIES: CT abdomen and pelvis shows bilateral scrotal variceal and vascular varices in the lower anterior pelvic subcutaneous soft tissues and scrotum with small fat stranding. Suspect obliteration of the distal left common iliac, proximal common femoral vein adjacent to surgical changes in the pelvis. The varices maybe due to collateral drainage from the left lower extremity to the iliac veins. Multiple indeterminate hypodensities in the liver may represent simple cysts. Recommend nonemergent abdominal CT liver mass protocol for further evaluation. Severe lumbar spine degenerative changes with moderate anterolisthesis of the L5 on S1. IMPRESSION: 1. Testicular swelling, unknown etiology, concerned for underlying thrombosed veins. 2. Induration with possible underlying scrotal cellulitis. 3. History of coronary artery disease with an ICD. 4. Hypertension. 5. Liver cyst seen on CT imaging. PLAN: At this time. He still has this scrotal swelling, but seems to be improved, but the induration is still present. He is on IV antibiotics. ID has been consulted as well as Urology. As per Urology, they recommend Cardiology input in relation to these veins that were described. Awaiting for Cardiology recommendations. We will continue with antibiotics for now. Continue with cardioprotective medications. As far as his blood pressure, continue with same medications. I did add [place] for pain as well. In relation to his liver cyst, I did consult with GI, get a right upper quadrant ultrasound. In relation to his edema, I feel like that the edema is multifactorial. I do not see any protein in the urine. He does have a history of heart failure, but the family reports that he does not, despite him have an ICD and the liver enzymes seem to be normal, but there is no evidence of any kind of cirrhosis on CT, but we did order a right upper quadrant ultrasound. I feel like that his underlying edema is likely to be from underlying heart failure as well as diet. The patient seems to be very noncompliant with his diet despite what the family are stating. The patient was eating pizzas as well as eating burgers, which have a high sodium intake. He is also drinking regular soda, which is also high in sodium intake as well while in the hospital. At this time, we will add Lasix 40 mg IV q.6 hours x4 doses. Replace electrolytes accordingly. Otherwise, he will continue on cardiac telemetry as well. We will continue with same plan of care and monitor very closely. MD HANY Pond/TOMÁS /[id number]
[2019-08-15 17:01] VITALS: BP 112/63
[2019-08-15] MEDS: ENOXAPARIN SOD INJ 40 MG/0.4 ML SYR SC SCH (17:08)
[2019-08-15] MEDS: FUROSEMIDE INJ 10 MG/ML 4 ML VIAL IV SCH ×2 (17:08→22:54)
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
[2019-08-15 20:00] VITALS: BP 115/55
[2019-08-15] MEDS: CLOPIDOGREL BISULFATE 75 MG TAB PO SCH (20:33)
--- NOTE | 2019-08-15 20:39 | NUR ---
SPOKE TO DR. GILMAN AT THIS TIME REGARDING PRN MORPHINE FALLING OFF. MD ORDERED TO RESTART PRN MORPHINE.
--- NOTE | 2019-08-15 21:12 | NUR ---
SPOKE TO DR. Camila SAHU AT THIS TIME. NEW ORDERS RECEIVE TO CONSENT FOR PERIPHERAL ANGIOGRAPHY ON Saturday08/17/19 AND NPO DIET AFTER MIDNIGHT.
[2019-08-15] MEDS: CEFAZOLIN SOD 1 GM/NS 50ML 50 ML IV SCH (21:27)
[2019-08-16] VITALS (7 sets, daily range): BP systolic 108–146; BP diastolic 52–63
[2019-08-16] MEDS: ONDANSETRON HCL INJ 2MG/ML 2ML 2 MG/ML VIAL IV PRN ×6 (01:32→22:30)
[2019-08-16] MEDS: MORPHINE SULFATE INJ 4 MG/ML INJ 1ML IV PRN ×6 (01:32→22:30)
--- NOTE | 2019-08-16 02:09 | Consultation ---
DATE OF CONSULTATION: 08/15/2019 Cardiac Consultation REASON FOR CONSULT: Left lower extremity and scrotal swelling. CHIEF COMPLAINT: Scrotal swelling. HISTORY OF PRESENT ILLNESS: The patient is a 69-year-old male who is known to our clinic. The patient is being followed by Dr. Benny Álvarez. He has severe lower extremity venous disease, status post multiple venous ablation in the office recently, who is presenting with worsening scrotal swelling and varicose veins in the groin and stomach area for the past several days to week. Denies any chest pain, shortness of breath, or heart failure symptoms. CT abdomen and pelvis showed distal aspect of left external iliac and proximal common femoral vein are markedly diminutive resulting in severe stenosis almost obliteration and there is no evidence of deep vein thrombosis. REVIEW OF SYSTEMS: As per HPI, otherwise negative. PAST MEDICAL HISTORY: 1. Hypertension. 2. Hyperlipidemia. 3. Coronary artery disease. 4. Chronic pain. 5. Venous insufficiency. HOME MEDICATIONS: Reviewed. ALLERGIES: NOTED IN THE MAR. FAMILY HISTORY: Hypertension and diabetes. SOCIAL HISTORY: He does not smoke, drink, or abuse drugs. PHYSICAL EXAMINATION: VITAL SIGNS: Temperature afebrile, pulse 68, respiratory rate 18, blood pressure 115/55, saturating 93% on room air. GENERAL: Middle-aged man, in no acute distress. CARDIOVASCULAR: Regular rate and rhythm. No murmurs, rubs, or gallops. LUNGS: Clear to auscultation bilaterally. ABDOMEN: Soft, nontender, nondistended. Obese. NEURO AND PSYCH: Alert and oriented to person, place, and time. Normal affect. EXTREMITIES: Lower extremities, there are chronic venous stasis changes bilaterally. 2+ pitting edema, left greater than right. There is significant varicosities noted in the left groin as well as left flank inside, and anterior part of the stomach. LABORATORY DATA: Reviewed. IMAGING DATA: Reviewed. CT scan of the abdomen and pelvis shows distal aspect of left external iliac proximal common femoral veins are markedly diminutive, multiple varicose veins noted in the area likely as a result of this severe stenotic area. ASSESSMENT: 1. Severe venous stenosis of the left femoral and iliac veins. 2. Coronary artery disease. 3. Hypertension. 4. Hyperlipidemia. 5. Chronic venous insufficiency, status post ablation. PLAN: Plan for venous intervention likely Saturday to be done by Dr. Álvarez. Continue to monitor. In the meantime, no evidence of deep venous thrombosis. No need for anticoagulation at this time. Imaging findings were discussed with the patient. We will continue to follow up closely. Continue cardiovascular medications otherwise. Thank you for this consult. We will continue to follow. MD ROBIN Jennings/TOMÁS /[id number]
[2019-08-16] MEDS: FUROSEMIDE INJ 10 MG/ML 4 ML VIAL IV SCH ×2 (06:00→12:13)
[2019-08-16] MEDS: CEFAZOLIN SOD 1 GM/NS 50ML 50 ML IV SCH ×3 (06:04→22:00)
[2019-08-16 06:20] LABS: BASOPHILS % 0.6 % (0.0-1.0); EOSINOPHILS # (AUTO) 0.4 (0.0-0.4); EOSINOPHILS % 6.7 % (0.0-6.0); HEMATOCRIT 35.4 % (38.2-49.6); HEMOGLOBIN 9.9 g/dL (14.0-18.0); LYMPHOCYTES # (AUTO) 1.3 (1.0-3.2); LYMPHOCYTES % 24.1 % (18.0-39.1); MEAN CORPUSCULAR HEMOGLOBIN 20.8 pg (28-32); MEAN CORPUSCULAR VOLUME 74.5 fL (81-99); MONOCYTES # (AUTO) 0.7 (0.2-0.8); MONOCYTES % 12.4 % (4.4-11.3); PLATELET COUNT 211 x10e3/uL (140-360); RED BLOOD COUNT 4.75 x10e6/uL (4.3-5.7); RED CELL DISTRIBUTION WIDTH 18.1 % (11.7-14.4)
[2019-08-16 06:39] LABS: ANION GAP 12.8 mmol/L (8-16); BLOOD UREA NITROGEN 16 mg/dL (7-26); BUN/CREATININE RATIO 14 (6-25); CALCIUM 9.1 mg/dL (8.4-10.2); CARBON DIOXIDE 33 mmol/L (22-29); CHLORIDE 99 mmol/L (98-107); CREATININE, SERUM 1.17 mg/dL (0.72-1.25); EST GLOMERULAR FILTRATION RATE > 60 ML/MIN (60-); GLUCOSE 87 mg/dL (74-118); POTASSIUM 3.8 mmol/L (3.5-5.1); SODIUM 141 mmol/L (136-145)
[2019-08-16 07:34] LABS: FERRITIN 32.14 ng/mL (21.81-274.66)
[2019-08-16] MEDS: METOPROLOL TARTRATE 50 MG TAB PO SCH ×2 (08:47→16:30)
[2019-08-16] MEDS: FLUOXETINE HCL 20 MG CAP PO SCH (08:47)
[2019-08-16] MEDS: LORATADINE/PSEUDOEPHEDRINE 24 HR SR TAB PO SCH (08:47)
[2019-08-16] MEDS: PREDNISONE 5 MG TAB PO SCH (08:47)
[2019-08-16] MEDS: AMIODARONE HCL 200 MG TAB PO SCH (08:47)
[2019-08-16] MEDS: MAGNESIUM OXIDE 400 MG TAB PO SCH (08:47)
[2019-08-16] MEDS: PRASTERONE 25 MG PO SCH (09:00)
--- NOTE | 2019-08-16 11:09 | NUR ---
NOTIFIED MD SAHU REGARDING PT CONCERN TO CALL HIS PIZZA MAKER MD JIA KINGSTON STAT TO PHONE NUMBER GIVEN LEFT NOTE IN CHART MD SAHU STATES WE WILL BE ROUNDING SOON
--- NOTE | 2019-08-16 11:17 | Diagnostic Imaging Report ---
TECHNIQUE: Ultrasound evaluation of the right upper quadrant of the abdomen. Color doppler was utilized to supplement the evaluation. HISTORY: Liver lesions on CT COMPARISON: CT of the abdomen August 14, 2019. DISCUSSION: LIVER: Multiple simple appearing hepatic cyst, measuring up to 1.9 x 1.4 x 1.7 cm on the left and 1.1 x 0.6 x 1.5 cm on the right. The liver measures 13 cm in the right midclavicular line. BILIARY: Normal appearance, without evidence for gallstones, gallbladder wall thickening or pericholecystic fluid. The sonographic Wagner's sign is reported as negative. The common bile duct measures 0.3 cm. PANCREAS: Incompletely visualized due to overlying bowel gas, but no abnormality identified involving the visualized portions of the pancreas. SPLEEN: No splenomegaly. PERITONEUM: No free fluid. KIDNEYS: Right: Measures 12 cm in length. No hydronephrosis or solid mass lesion identified. VASCULATURE: Aorta: Visualized portions appear unremarkable. Interior vena cava: Visualized portions appear unremarkable. Portal Vein: Nondilated with hepatopedal flow. IMPRESSION: 1. Multiple simple appearing liver cysts. 2. No acute sonographic abnormality. Signed by: Dr. Darnell Marinelli D.O., M.M.M. on 08/16/2019 11:14 AM
--- NOTE | 2019-08-16 14:11 | Progress Note ---
DATE: 08/16/2019 Medicine Progress Note SUBJECTIVE: The patient reports feeling much better today. His edema has improved tremendously. He was on IV diuretics, ordered yesterday. He also still has the varicose veins in his scrotum, but he is scheduled for procedure tomorrow by Cardiology to see if they can alleviate the actual varicose veins there. He is also on IV antibiotics, being managed by Infectious Disease. GI came and evaluated the patient as well. PHYSICAL EXAMINATION: VITAL SIGNS: Temperature is 97.2, pulse 54, respiratory rate is 20, blood pressure 117/56, and pulse ox 94% on room air. GENERAL: Not in acute distress. Alert and oriented x3. Cooperative on examination. HEENT: Head; normocephalic, atraumatic. Eyes; pupils are equal, round, and reactive to light bilaterally. Extraocular movements intact bilaterally. Throat; no evidence of erythema or exudates in the posterior pharynx. Has poor dentition. NECK: Supple. Good range of motion. PULMONARY: Clear to auscultation bilaterally. No wheezing, no rales, no rhonchi, no crackles appreciated. CARDIOVASCULAR: Positive S1 and S2. No murmurs, rubs, or gallops appreciated. ABDOMEN: Soft, nondistended, and nontender to palpation. Bowel sounds present. MUSCULOSKELETAL: Strength is 5/5 throughout. No evidence of any muscle deficits on examination. No weakness appreciated. NEUROLOGIC: Cranial nerve II through XII grossly intact. No evidence of any neurological deficits on exam. SKIN: Intact. Warm to touch. Good cap refill. PSYCHIATRIC: Normal affect and mood. EXTREMITIES: No edema. Good range of motion throughout. LABORATORY FINDINGS: Show white count was found to be 5.3, hemoglobin 9.9, hematocrit is 35, platelets of 211. Coagulation normal. Chemistry; sodium 141, potassium 3.8, chloride 99, bicarb 33, anion gap of 12, BUN is 16, creatinine is 1.1, calcium is 9.1. Iron saturation was 8%. Vitamin B12 was 514, folic acid is 15. MICROBIOLOGY: None. IMAGING STUDIES: Abdominal ultrasound ordered shows multiple simple appearing liver cysts. No acute sonographic abnormalities. IMPRESSION: 1. Testicular swelling, unknown etiology, being managed by Urology and Cardiology. 2. Induration and possible underlying scrotal cellulitis. 3. History of coronary artery disease with an automated implantable cardioverter-defibrillator. 4. Hypertension. 5. Simple cyst on the liver seen on ultrasound. 6. Lower extremity edema due to medical noncompliance. PLAN: At this time, Cardiology recommends vein evaluation tomorrow by Dr. Álvarez. Apparently, he will go and do a procedure according to his note. He does not think that there is any sort of thromboses and he does not feel like the patient is on any anticoagulation. The patient is aware of this procedure tomorrow. As for his underlying cellulitis, he is being managed by ID and he is on IV antibiotics. Continue with cardioprotective medications as well as IV diuretics. Urology is following as well for his underlying varicose scrotum and he will be monitored closely as well. In terms of his blood pressure, it is stable. His pain is well controlled as well. We will continue with same regimen. GI came and evaluated the patient, reviewed right upper quadrant ultrasound, showed to have simple cyst in the liver and no further workup was needed. At this time, the patient will continue with same plan of care. Get morning labs. Continue with diuretics and hopefully have this vein testing tomorrow by Cardiology and we can go from there. MD HANY Pond/TOMÁS /[id number]
[2019-08-16] MEDS: SODIUM FERRIC GLUCONATE COMPLX 125 MG in SODIUM CHLORIDE 0.9% 100 ML 100 ML IV SCH (15:29)
[2019-08-16] MEDS: ENOXAPARIN SOD INJ 40 MG/0.4 ML SYR SC SCH (18:06)
[2019-08-16] MEDS: CLOPIDOGREL BISULFATE 75 MG TAB PO SCH (21:41)
[2019-08-16] MEDS ORDERED: CYANOCOBALAMIN INJ 1,000 MCG/ML VIAL IM ONE (22:00)
[2019-08-17] VITALS (8 sets, daily range): BP systolic 98–123; BP diastolic 54–76
[2019-08-17] MEDS: ONDANSETRON HCL INJ 2MG/ML 2ML 2 MG/ML VIAL IV PRN ×6 (02:31→23:30)
[2019-08-17] MEDS: MORPHINE SULFATE INJ 4 MG/ML INJ 1ML IV PRN ×6 (02:31→23:30)
[2019-08-17] MEDS: CEFAZOLIN SOD 1 GM/NS 50ML 50 ML IV SCH ×3 (06:00→21:30)
--- NOTE | 2019-08-17 07:00 | NUR ---
BEDSIDE ROUNDS COMPLETE NO DISTRESS NOTED, UPDATED ON POC VOICED UNDERSTANDING, DENIES PAIN AT THIS TIME, EDEMA NOTED TO SCROTUM, RUE 20G NO SS OF INFILTRATION NOTED, NO OTHER CO VOICED CALL LIGHT IN REACH WILL CONTINUE TO MONITOR
[2019-08-17] MEDS: PRASTERONE 25 MG PO SCH (09:00)
[2019-08-17] MEDS: METOPROLOL TARTRATE 50 MG TAB PO SCH ×2 (09:00→17:00)
--- NOTE | 2019-08-17 09:00 | NUR ---
UNABLE TO GIVEN MORNING MEDS PT NPO DUE TO PROCEDURE
[2019-08-17 12:15] LABS: ANION GAP 12.3 mmol/L (8-16); CALCIUM 10.1 mg/dL (8.4-10.2); CREATININE, SERUM 1.33 mg/dL (0.72-1.25); POTASSIUM 4.3 mmol/L (3.5-5.1)
--- NOTE | 2019-08-17 12:18 | Progress Note ---
DATE: 08/17/2019 Medicine Progress Note SUBJECTIVE: The patient reports feeling much better today with no other complaints. His diuretics have helped tremendously and his edema has improved tremendously. He is still very noncompliant with his diet. He was eating [employer] chicken yesterday, which has an increased amount of sodium; he also ate pizza earlier in the weekend on Saturday; the day before that on Saturday he a hamburgers, which all have high sodium intake, which I discussed this with him. He is supposed to be scheduled for some sort of vein procedure today, hopefully that will occur today. He is currently n.p.o. PHYSICAL EXAMINATION: VITAL SIGNS: Temperature is 96.6, pulse 56, respiratory rate is 20, blood pressure is 109/56, and pulse ox is 97% on room air. GENERAL: Not in acute distress. Alert and oriented x3. Cooperative on examination. HEENT: Head; normocephalic, atraumatic. Eyes; pupils are reactive to light bilaterally, extraocular movements intact bilaterally. Neck; supple, good range of motion. Throat; no evidence of erythema or exudates in the posterior pharynx. Has poor dentition. PULMONARY: Clear to auscultation bilaterally. No wheezing, rales, or rhonchi. No crackles appreciated. CARDIAC: Positive S1, S2. No murmurs, rubs, or gallops appreciated. ABDOMEN: Soft, nondistended and nontender to palpation. Bowel sounds present. MUSCULOSKELETAL: Strength is 5/5 throughout. No evidence of any muscle deficits on examination. No weakness appreciated. NEUROLOGIC: Cranial nerve II through XII grossly intact. No evidence of any neurological deficits on exam. SKIN: Intact. Warm to touch. Good cap refill. PSYCHIATRIC: Normal affect and mood. EXTREMITIES: No edema. Good range of motion throughout. : Induration in the suprapubic area has improved. Erythema has improved. He still has some varicose veins seen on the scrotum. LABORATORY DATA: None today. MICROBIOLOGY: None. IMAGING: None. IMPRESSION: 1. Testicular swelling with unknown etiology with underlying varicose veins being managed by Urology and Cardiology. 2. Induration with underlying scrotal cellulitis, improving. 3. History of coronary artery disease with an AICD. 4. Hypertension. 5. Simple cyst seen on liver ultrasound. 6. Lower extremity edema due to medical noncompliance. 7. Iron deficiency anemia. PLAN: At this time, Urology is following closely with the testicular swelling. Recommending antibiotics, which is being managed by ID and evaluation by Cardiology, which will be addressed later today. He will have some sort of vein procedure today by Cardiology, but awaiting further final input on that, I read that from yesterday's Cardiology's note. As for his cardioprotective medications, we will continue with that for now. Get repeat labs today. There is no chemistry ordered this morning and we will get repeat labs in the morning. His blood pressure is controlled. In terms of a simple cyst seen on the liver ultrasound, GI is following as outpatient followup. We will continue following with all the consultants; ID, Urology, Cardiology. At this time, if his chemistries are better or when the results are back we will determine if he needs to be on any more IV diuretics. Otherwise, the patient will likely be here several more days until we figure out overall plan of care with Cardiology. MD HANY Pond/TOMÁS /[id number]
--- NOTE | 2019-08-17 13:15 | NUR ---
DR. MIRANDA AT BEDSIDE, PROCEDURE ( ANGIOGRAM) CANCELED FOR TODAY FACILITY UNABLE TO OBTAIN STENT PT NEEDS FOR PROCEDURE, MD STATES SHE WILL NOTIFY DR GILMAN, RE: DC PLANNING, THIS NURSE WILL ALSO NOTIFY DR GILMAN RE: DC PLANNING WILL UPDATED WHEN INFORMED.
--- NOTE | 2019-08-17 13:45 | NUR ---
PAGED DR BEAN RE: PT STATES PLAN TO DC HOME, AWAITING CALL BACK
[2019-08-17] MEDS: CYANOCOBALAMIN INJ 1,000 MCG/ML VIAL IM SCH (13:53)
[2019-08-17] MEDS: AMIODARONE HCL 200 MG TAB PO SCH (13:54)
[2019-08-17] MEDS: LORATADINE/PSEUDOEPHEDRINE 24 HR SR TAB PO SCH (13:54)
[2019-08-17] MEDS: PREDNISONE 5 MG TAB PO SCH (13:54)
[2019-08-17] MEDS: MAGNESIUM OXIDE 400 MG TAB PO SCH (13:54)
[2019-08-17] MEDS: FLUOXETINE HCL 20 MG CAP PO SCH (13:54)
[2019-08-17] MEDS: SODIUM FERRIC GLUCONATE COMPLX 125 MG in SODIUM CHLORIDE 0.9% 100 ML 100 ML IV SCH (14:49)
--- NOTE | 2019-08-17 15:45 | NUR ---
PAGED DR BEAN AWAITING CALL BACK
[2019-08-17] MEDS: ENOXAPARIN SOD INJ 40 MG/0.4 ML SYR SC SCH (17:00)
[2019-08-17] MEDS: CLOPIDOGREL BISULFATE 75 MG TAB PO SCH (21:10)
--- NOTE | 2019-08-17 23:35 | Progress Note ---
DATE: 08/17/2019 Cardiology Progress Note SUBJECTIVE: The patient denies chest pain or shortness of breath due to lack of iliac vein stent availability at this institution. He was unable to undergo iliac vein. He was unable to undergo procedure today. OBJECTIVE: VITAL SIGNS: Temperature 97 degrees, pulse 69, respiratory rate 22, blood pressure 123/56, oxygen saturation 96% on room air. GENERAL: Awake, alert, in no acute distress. LUNGS: Clear to auscultation bilaterally. No wheezes or crackles. CARDIOVASCULAR: Normal rate. Regular rhythm. No murmur. Normal S1, S2. ABDOMEN: Soft, nontender. EXTREMITIES: Chronic venous stasis changes bilaterally with 1+ pitting edema, left greater than right. CARDIAC MEDICATIONS: Plavix 75 mg p.o. daily, enoxaparin 40 mg subcu daily, metoprolol tartrate 50 mg p.o. b.i.d., amiodarone 100 mg p.o. daily. LABORATORY DATA: Sodium 139, potassium 4.3, chloride 96, CO2 of 35, BUN 16, and creatinine 1.33. ASSESSMENT: 1. Severe venous stenosis of the left femoral and iliac veins. 2. Coronary artery disease. 3. Hypertension. 4. Hyperlipidemia. 5. Chronic venous insufficiency, status post ablation. PLAN: As iliac vein stents are not available at this institution, the patient is unable to undergo venous intervention. Plan to discharge patient home and schedule procedure as an outpatient. Continue current cardiac medications. Scrotal ultrasound reviewed, given plan for procedure at this time, plan to remain off anticoagulation. This was discussed with the patient and primary attending. The patient is agreeable with the plan of care. Continue current cardiac medications. Antibiotics per Infectious Disease. Thank you for this consult. We will continue to follow. Alisha Bonner MD ABS/MODL /[id number]
[2019-08-18] VITALS: BP 120/58
[2019-08-18] MEDS: ONDANSETRON HCL INJ 2MG/ML 2ML 2 MG/ML VIAL IV PRN ×2 (03:30→08:46)
[2019-08-18] MEDS: MORPHINE SULFATE INJ 4 MG/ML INJ 1ML IV PRN ×2 (03:30→08:45)
[2019-08-18 04:00] VITALS: BP 129/60
[2019-08-18 05:30] LABS: BASOPHILS % 0.5 % (0.0-1.0); EOSINOPHILS # (AUTO) 0.3 (0.0-0.4); EOSINOPHILS % 5.5 % (0.0-6.0); HEMATOCRIT 34.4 % (38.2-49.6); HEMOGLOBIN 9.5 g/dL (14.0-18.0); LYMPHOCYTES # (AUTO) 1.4 (1.0-3.2); LYMPHOCYTES % 25.5 % (18.0-39.1); MEAN CORPUSCULAR HEMOGLOBIN 20.8 pg (28-32); MEAN CORPUSCULAR HGB CONC 27.6 g/dL (31-35); MEAN CORPUSCULAR VOLUME 75.4 fL (81-99); MONOCYTES # (AUTO) 0.7 (0.2-0.8); MONOCYTES % 11.6 % (4.4-11.3); NEUTROPHILS # (AUTO) 3.2 (2.1-6.9); NEUTROPHILS % 56.5 % (38.7-80.0); PLATELET COUNT 200 x10e3/uL (140-360); RED BLOOD COUNT 4.56 x10e6/uL (4.3-5.7); RED CELL DISTRIBUTION WIDTH 18.3 % (11.7-14.4)
[2019-08-18] MEDS: CEFAZOLIN SOD 1 GM/NS 50ML 50 ML IV SCH (05:37)
[2019-08-18 05:55] LABS: ANION GAP 12.5 mmol/L (8-16); CALCIUM 9.3 mg/dL (8.4-10.2); CREATININE, SERUM 1.21 mg/dL (0.72-1.25); POTASSIUM 4.5 mmol/L (3.5-5.1)
[2019-08-18 07:00] LABS: EOSINOPHILS % (MANUAL) 5 % (0-7); LYMPHOCYTES % (MANUAL) 26 % (19-48); MONOCYTES % (MANUAL) 8 % (3.4-9.0); MYELOCYTES % (MANUAL) 1 % (0-0); NEUTROPHILS % (MANUAL) 60 % (40-74); PLATELET ESTIMATE ADEQUATE; RBC MORPHOLOGY COMMENT ABNORMAL
[2019-08-18 07:01] LABS: HYPOCHROMASIA SLIGHT; MICROCYTOSIS SLIGHT; OVALOCYTES FEW
--- NOTE | 2019-08-18 07:01 | NUR ---
RECEIVED PATIENT RESTING IN BED NO S/S OF DISTRESS. BED LOW, WHEELS LOCKED, SIDE RAILS X2. CALL LIGHT IN REACH WILL CONTINUE TO MONITOR PATIENT.
[2019-08-18 07:02] LABS: PLATELET MORPHOLOGY COMMENT FEW LARGE
[2019-08-18] MEDS: PRASTERONE 25 MG PO SCH (08:05)
[2019-08-18] MEDS: MAGNESIUM OXIDE 400 MG TAB PO SCH (08:38)
[2019-08-18] MEDS: AMIODARONE HCL 200 MG TAB PO SCH (08:38)
[2019-08-18] MEDS: CYANOCOBALAMIN INJ 1,000 MCG/ML VIAL IM SCH (08:38)
[2019-08-18] MEDS: LORATADINE/PSEUDOEPHEDRINE 24 HR SR TAB PO SCH (08:38)
[2019-08-18] MEDS: METOPROLOL TARTRATE 50 MG TAB PO SCH (08:38)
[2019-08-18] MEDS: PREDNISONE 5 MG TAB PO SCH (08:39)
[2019-08-18] MEDS: FLUOXETINE HCL 20 MG CAP PO SCH (08:39)
[2019-08-18 09:00] VITALS: BP 127/58
[2019-08-18 09:43] VITALS: BP 127/58
[2019-08-18] MEDS ORDERED: KEFLEX500 MG PO (10:59)
--- NOTE | 2019-08-18 11:19 | NUR ---
REMOVED PATIENTS IV. CATHETER TIP INTACT AND PRESSURE DRESSING APPLIED.
--- NOTE | 2019-08-18 11:23 | NUR ---
PATIENT DISCHARGED FROM FACILITY. PATIENT GATHERED ALL PERSONAL BELONGINGS, DISCHARGE INSTRUCTIONS AND FOLLOW UP INFORMATION. LEFT UNIT IN WHEELCHAIR AND WENT HOME VIA PRIVATE AUTO. NO SIGNS OF DISTRESS WHEN LEAVING FACILITY.
--- NOTE | 2019-08-18 14:02 | Discharge Summary ---
FINAL DISCHARGE DIAGNOSES: 1. Testicular swelling with underlying varicose veins. 2. Induration with possible underlying scrotal cellulitis. 3. History of coronary artery disease with an AICD. 4. Hypertension. 5. Simple cysts seen on liver ultrasound. 6. Lower extremity edema secondary to medical noncompliance with diet. 7. Iron-deficiency anemia. CONSULTANTS: Urology, Cardiology, Infectious Disease, and GI. PHYSICAL EXAMINATION: VITAL SIGNS: Temperature is 96.6, pulse 62, respiratory rate is 20, blood pressure is 127/58, and pulse ox 93% on room air. LABORATORY FINDINGS: Show white count is 5.6, hemoglobin 9.5, hematocrit is 34, MCV 75, and platelets of 200. Coagulation; PT 12, INR 0.85, and PTT 30. Chemistry; sodium 140, potassium 4.5, chloride 101, bicarb 31, anion gap of 12, BUN 17, creatinine is 1.2, glucose is 90, calcium is 9.3, and magnesium 2.1. Urinalysis negative. MICROBIOLOGY: None. IMAGING STUDIES: Testicular ultrasound shows no evidence of testicular torsion. Area of swelling above the benign shaft demonstrates a serpentine hypoechoic structure without blood with concerns without internal blood flow, which may represent thrombosed vein. There is bilateral tiny epididymal head spermatocele versus cyst. Doppler ultrasound shows similar findings as the testicular ultrasound. Chest x-ray, no focal pneumonia or pulmonary edema. CT abdomen and pelvis shows bilateral scrotal variceal and vascular varices in the lower anterior pelvic subcutaneous soft tissues and scrotum with mild fat stranding. Suspect obliteration of the distal left common iliac, proximal common femoral vein adjacent to the surgical changes in the pelvis. The varices may be due to collateral drainage from the left lower extremity to the iliac veins. Multiple indeterminate hypodensities in the liver may represent simple cysts. Severe lumbar spine degenerative changes with mild anterolisthesis of the L5 on S1. Abdominal ultrasound shows multiple simple-appearing liver cysts. No acute sonographic abnormality. HOSPITAL COURSE: This is a 69-year-old male, morbidly obese, comes into the ED sent in by his brake press operator due to increased enlargement varicose veins around his scrotum. The patient admitted, did not have any pain or any complaints of any issues. On admission, Cardiology and Urology were consulted. Testicular ultrasound and Doppler ultrasound with results above was concerning for possible areas of decreased blood flow. After discussing this case with the consultants, Cardiology and Urology, it was felt that this is likely to be from varicose veins from recent procedure and needs more evaluation. Urology felt this is also likely to be underlying cellulitis in which the patient was on IV antibiotics and ID was consulted. The patient was discharged on oral antibiotics as well. As per his underlying varicose veins, this was discussed with Cardiology thoroughly with several of the cardiologists on the case. They do not feel like that this patient has any kind of thrombosed vein. Instead, this is likely to be decrease drainage from his multiple venous varicose veins. He was in the process of having a procedure done here at [facility] on 08/17/2019, but appropriate stent that needs to be performed on this particular patient is not available at this facility. At this time, Cardiology recommends discharge to home with no anticoagulation needed and he will follow up later this week in the office to have an arrangement for a stent at a later date. Once again, the patient was informed of no anticoagulation by the Cardiology Services. At this time, the patient will not be discharged on anticoagulation as per recommendations by Cardiology. The patient has no other pain. He is doing well with no other complaints. He was found to have some incidental simple cysts on the liver CT, in which the family prompted for me to get a GI consult. As per GI, the patient can follow up as an outpatient in his office for further evaluation and management. He did have an abdominal ultrasound that showed multiple simple-appearing liver cysts, but no further workup was needed. At this time, the patient has been cleared by all consultants, Urology, ID, Cardiology, and GI. Again, the patient was informed by the Cardiology Service is not to take any anticoagulation at this time and he will be discharged on followup this week in brake press operator's office for further management and care. On the day of discharge, vital signs were stable, labs reviewed and stable. The patient is seen and evaluated, and examined thoroughly on the day of discharge. No other complaints. The patient verbalized understanding and agrees to plan of care to follow up as an outpatient with the primary care physician in 1 week and the brake press operator later this week in the office, Urology in 2 weeks' time, ID in 2 weeks' time. Please follow up with GI in about 2 weeks' time for further management and care. MEDICATIONS: See med reconciliation form. DISPOSITION: To home. CONDITION: Stable. DIET: Heart healthy. In the event of any worsening symptoms, the patient advised to come back to the emergency room for further evaluation. Discharge summary took greater than 35 minutes. MD HANY Pond/MODBriseida /[id number]
--- NOTE | 2019-08-19 02:03 | Progress Note ---
DATE: 08/18/2019 Cardiology Progress Note SUBJECTIVE: The patient denies chest pain or shortness of breath. OBJECTIVE: VITAL SIGNS: Temperature 96.6 degrees, pulse 62, respiratory rate 20, blood pressure 127/58, oxygen saturation 93% on room air. GENERAL: Awake, alert, in no acute distress. LUNGS: Clear to auscultation bilaterally. No wheezes or crackles. CARDIOVASCULAR: Normal rate. Regular rhythm. No murmur. Normal S1, S2. ABDOMEN: Soft, nontender. EXTREMITIES: Chronic venous changes bilaterally with 1+ pitting edema, left greater than right. CARDIAC MEDICATIONS: Metoprolol tartrate 50 mg p.o. b.i.d., amiodarone 100 mg p.o. daily, Plavix 75 mg p.o. daily, and aspirin 40 mg subcu daily. LABORATORY DATA: WBC 5.6, hemoglobin 9.5, hematocrit 34.4, platelets 200. Sodium 140, potassium 4.5, chloride 101, CO2 of 31, BUN 17, and creatinine 1.21. IMPRESSION: 1. Severe venous stenosis of the left femoral and iliac veins. 2. Coronary artery disease. 3. Hypertension. 4. Hyperlipidemia. 5. Chronic venous insufficiency status post ablation. RECOMMENDATIONS: As iliac vein stents are not available at this institution, the patient is unable to undergo venous intervention. The patient will be discharged home and scheduled for the procedure as an outpatient at an alternate institution. Continue current cardiac medications. Antibiotics per Infectious Disease. Thank you for this consult. We will continue to follow. Alisha Bonner MD ABS/MODL /[id number]
== END 2019-08-18 11:23 | disposition home or self-care (01) | DRG 728 ==
LOC: ER 15:13 → INTOOBSV 20:02 → ERHOLD 20:02 → MED/SURG 08-14 10:46 → OBSVTOIN 08-14 16:59
PROVIDERS: ADMIT Internal Medicine; ATTEND Internal Medicine
DX: N49.2 Inflammatory disorders of scrotum (principal); N17.9 Acute kidney failure, unspecified; C61 Malignant neoplasm of prostate; R32 Unspecified urinary incontinence; N52.9 Male erectile dysfunction, unspecified
CPT/HCPCS: 36415; 71046; 74176; 76705; 76870; 80048; 80053; 80202; 81001; 82550; 82553; 82607; 82728; 82746; 83540; 83735; 84466; 84484; 85025; 85045; 85610; 85730; 93005; 93976; 99284; G0378; J0690; J0692; J1650; J1940; J2270; J2405; J2916; J3370; J3420; J7050; J7512